=== PATIENT | female | born 1935 | race Caucasian/White ===

== ENCOUNTER 2016-03-05 07:27 | Observation (INO) ==
[2016-03-05] MEDS ORDERED: 0.9 % Sodium Chloride 1,000 ML IVC ONE (07:48)
[2016-03-05] MEDS ORDERED: Ondansetron 4 MG/2 ML VIAL IV ONE (07:49)
[2016-03-05] MEDS ORDERED: *HR* HYDROmorphone (PF) 1 MG/ML SYRINGE IV ONE (07:49)
--- NOTE | 2016-03-05 07:51 | Emergency Department Note ---
Disposition Clinical Impression: Bilateral pneumonia Qualifiers: Pneumonia type: due to unspecified organism Lung location: lower lobe of lung Qualified Code(s): J18.9 - Pneumonia, unspecified organism Condition: Good Referrals: Ashok Tadeo MD [Primary Care Provider] - Forms: ED Satisfaction Letter SOB HPI - General Chief Complaint: ED Upper Respiratory Infection Stated Complaint: difficulty breathing Source: patient Mode of arrival: EMS Limitations: no limitations Nursing Notes Reviewed: Yes Vital Signs Reviewed: Yes - History of Present Illness 80-year-old female presents to the emergency department for evaluation of congestion, cough, low back pain. Patient states that she has been ill since yesterday. She has a past history of COPD and requires continuous oxygen at home. This morning she had significant discomfort to her lower back that prompted her to come to the emergency department. Patient has been running a low-grade fever but is not know the actual amount. She has had a productive cough of yellow brown sputum. - Related Data Home Medications Medication Instructions Recorded Confirmed Albuterol Sulfate [Proair HFA] 1 puff IH DAILY 10/05/14 03/05/16 Alendronate Sodium 70 mg PO QWEEK 10/05/14 03/05/16 Atorvastatin [Lipitor] 80 mg PO HS 10/05/14 03/05/16 Budesonide/Formoterol 80/4.5 1 puff IH BIDR 10/05/14 03/05/16 [Symbicort] Calcium Carbonate/Vitamin D3 1 each PO DAILY 10/05/14 03/05/16 [Calcium 250+D Tablet] Clopidogrel [Plavix] 75 mg PO DAILY 10/05/14 03/05/16 Diltiazem CD (24hr) [Cardizem CD] 120 mg PO BID 10/05/14 03/05/16 Docosahexanoic Acid/Epa [Fish Oil 1 mg PO DAILY 10/05/14 03/05/16 Concentrate Softgel] Enalapril Maleate [Vasotec] 10 mg PO DAILY 10/05/14 03/05/16 Ezetimibe [Zetia] 10 mg PO DAILY 10/05/14 03/05/16 Formoterol Fumarate [Perforomist] 20 mcg IH DAILY 10/05/14 03/05/16 Furosemide [Lasix] 20 mg PO DAILY 10/05/14 03/05/16 GlipiZIDE [Glucotrol] 5 mg PO BIDWM 10/05/14 03/05/16 Isosorbide MONOnitrate (24 HR) 60 mg PO DAILY 10/05/14 03/05/16 [Imdur] Nitroglycerin 0.3 mg TD DAILY 10/05/14 03/05/16 Sotalol HCl [Betapace] 120 mg PO BID 10/05/14 03/05/16 Warfarin [Coumadin] 3 mg PO DAILY 12/31/14 03/05/16 Cholecalciferol (D-3) [Vitamin D] 1,000 unit PO DAILY 03/05/16 03/05/16 Cyanocobalamin/FA/Pyridoxine 1 each PO DAILY 03/05/16 03/05/16 [Folbic Tablet] Esomeprazole Magnesium [Nexium] 20 mg PO DAILY 03/05/16 03/05/16 L.acidoph,Paracasei, B.lactis 1 each PO DAILY 03/05/16 03/05/16 [Probiotic] Nitroglycerin [Nitrostat] 0.4 mg SL AD 03/05/16 03/05/16 Allergies Allergy/AdvReac Type Severity Reaction Status Date / Time bacitracin Allergy Anaphylaxis Verified 02/21/16 19:45 [From Neosporin ([id number])] cetirizine Allergy Anaphylaxis Verified 02/21/16 19:45 codeine Allergy Anaphylaxis Verified 02/21/16 19:45 diazepam [From Valium] Allergy Anaphylaxis Verified 02/21/16 19:45 miconazole Allergy Anaphylaxis Verified 02/21/16 19:45 [From Neosporin AF] Neomycin Allergy Anaphylaxis Verified 02/21/16 19:45 Penicillins Allergy Anaphylaxis Verified 02/21/16 19:45 polymyxin B Allergy Anaphylaxis Verified 02/21/16 19:45 promethazine [From Phenergan] Allergy Anaphylaxis Verified 02/21/16 19:45 Sulfa (Sulfonamide Allergy Anaphylaxis Verified 02/21/16 19:45 Antibiotics) Review of Systems: Constitutional: [Negative for fever and chills.] HENT: [Negative for congestion.] Eyes: [Negative for discharge.] Respiratory: See history of present illness Cardiovascular: [Negative for chest pain.] Gastrointestinal: [Negative for nausea, vomiting, abdominal pain and diarrhea.] Endocrine: [Negative for excessive thirst,urination] Genitourinary: [Negative for dysuria and frequency.] Musculoskeletal: See history of present illness Skin: [Negative for rash.] Neurological: [Negative for dizziness, localized weakness and headaches.] Psychiatric/Behavioral: [Negative for nervous/anxious.] All other systems reviewed and are negative. All systems ED: reviewed and negative except as stated. Past Medical History - Past Medical History Attestation: Yes The following information was validated with the patient. Medical history: Reports: atrial fibrillation, cancer, CHF, COPD, coronary artery disease, diabetes, GERD, hyperlipidemia, hypertension, pulmonary embolus , other Surgical history: Reports: breast surgery, cancer surgery, cholecystectomy Psychiatric history: Reports: no psych history [employer] history: Reports: bilateral tubal ligation - Social History Smoking Status: Former smoker Smokeless Tobacco Status: No Alcohol use: Reports: none Drug use: Reports: none Physical Exam Constitutional: Patient is [alert], elderly, [well nourished, well developed], uncomfortable with movement of her lower back and cooperative. . The patient appears, nontoxic, and [does not appear ill]. There is moderate pain. HENT: Head: Normocephalic and atraumatic. Right Ear: External ear normal. Left Ear: External ear normal. Nose: Nose normal. Mouth/Throat: Oropharynx is clear and mucous membranes show [good hydration.] Posterior pharyngeal drainage is noted Eyes: Conjunctivae and EOM are normal. Pupils are equal, round, and reactive to light. Right eye exhibits no discharge. Left eye exhibits no discharge. Neck: Trachea is midline, normal range of motion and phonation normal. Neck supple. Cardiovascular: Regular rhythm, S1 normal, S2 normal, normal heart sounds and intact distal pulses. Exam reveals no gallop and no friction rub. No murmur heard. Pulmonary/Chest: Effort [normal] No stridor. [No] tachypnea. [No] respiratory distress. There are decreased breath sounds. There are mild faint wheezes and diffuse rhonchi heard throughout. No Rales are heard Abdominal: Soft. Bowel sounds are normal. There exhibits no distension and no mass. There is no hepatosplenomegaly. There is [no] tenderness, [no] CVA tenderness. There is no rigidity, no rebound, no guarding. Musculoskeletal: Normal range of motion of uninvolved extremities. There exhibits [no] edema. [No tenderness palpable.] [ ] Neurological: Patient is alert. Patient displays no atrophy and no tremor. No cranial nerve deficit and exhibits normal muscle tone. Coordination normal. Skin: Skin is warm and dry. No rash noted. No erythema. Psychiatric: Patient has a normal mood,affect, behavior, judgment, and thought content. Course Course Narrative: Patient has significant underlying COPD with noted CO2 retention on blood gas. Chest x-ray shows evidence of a pneumonia that could be evolving versus atelectasis. With a productive cough with suggestive probably has bronchitis and this is most likely atelectasis but with her underlying COPD admission is indicated Vital Signs Temperature 98.8 F 03/05/16 07:31 Pulse Rate 87 03/05/16 07:31 Respiratory Rate 16 03/05/16 07:31 Blood Pressure 151/60 03/05/16 07:31 O2 Sat by Pulse Oximetry 97 03/05/16 07:31 Temperature 98.8 F 03/05/16 07:31 Pulse Rate 84 03/05/16 08:08 Respiratory Rate 18 03/05/16 08:08 Blood Pressure 123/51 03/05/16 08:08 O2 Sat by Pulse Oximetry 95 03/05/16 08:08 Oxygen Delivery Oxygen Delivery Nasal Cannula Shortness of Breath/Dyspnea - MDM Narrative Medical decision making narrative: She will be discussed with Dr. Tadeo for admission - Lab Data Lab results reviewed: Yes I reviewed the patient's lab results. Result diagrams: 03/05/16 08:20 03/05/16 08:20 Lab Results 03/05/16 03/05/16 03/05/16 Range/Units 08:20 08:20 08:20 WBC 12.3 H (4.3-11.1) K/mcL RBC 4.02 (3.82-4.97) M/mcL Hgb 10.9 L (11.5-15.4) g/dL Hct 34.3 L (35.3-44.9) % MCV 85.3 (83.0-100.0) fL MCH 27.1 L (28.0-33.3) pg MCHC 31.8 (31.6-35.5) g/dL RDW 13.7 (11.5-14.5) % Plt Count 217 (140-400) K/mcL MPV 10.3 (9.4-12.4) fL Immature Gran % 0.6 (0-4) % Seg Neutrophils % 78.2 % Lymphocytes % 13.2 % Monocytes % 7.6 % Eosinophils % 0.2 % Basophils % 0.2 % Neutrophils # 9.6 H (1.6-8.9) K/mcL Lymphocytes # 1.6 (0.6-4.6) K/mcL Monocytes # 0.9 (0.0-1.3) K/mcL Eosinophils # 0.0 (0.0-0.6) K/mcL Basophils # 0.0 (0.0-0.2) K/mcL ABG pH 7.37 (7.32-7.45) pH Units ABG pCO2 68 H (35-45) mmHg ABG pO2 76 L (85-104) mmHg ABG HCO3 39.2 H (21-27) mEQ/L ABG Total CO2 41.3 H (20-26) mEq/L ABG O2 Saturation 94 L (95-98) % ABG Base Excess 11.0 H (-2.0 to 3.0) mEq/L VBG Lactic Acid 0.4 L (0.5-2.2) mmol/L Liter Flow 3 L/MIN Blood Gas Modality NC Inspired O2 32 % Sodium 142 (136-145) mEq/L Potassium 4.0 (3.5-4.5) mEq/L Chloride 101 (98-109) mEq/L Carbon Dioxide 33 H (19-29) mEq/L BUN 13 (7-20) mg/dL Creatinine 0.58 (0.57-1.11) mg/dL Est GFR ( Amer) > 60 (> 60) Est GFR (Non-Af Amer) > 60 (> 60) BUN/Creatinine Ratio 22 (6-26) Glucose 121 H (70-99) mg/dL Calculated Osmolality 295 (280-300) Calcium 9.1 (8.6-10.8) mg/dL Total Bilirubin 0.6 (0.2-1.2) mg/dL Direct Bilirubin 0.2 (0.0-0.5) mg/dL Indirect Bilirubin 0.4 (0.0-1.2) mg/dL AST 20 (5-34) Units/L ALT 29 (0-55) Units/L Alkaline Phosphatase 68 (38-126) Units/L Serum Total Protein 6.2 (6.0-8.3) g/dL Albumin 3.1 L (3.5-5.0) g/dL Globulin 3.1 (2.4-3.5) g/dL Albumin/Globulin Ratio 1.0 L (1.1-2.2) - Radiology Data Radiology results reviewed: Yes I reviewed the patient's radiology results. I have contemporaneously read the radiology report from the radiologist which has the following findings: Chest x-ray IMPRESSION: Prominence of central pulmonary vasculature suggestive of congestion. This finding may be accentuated by low lung volumes. Bibasilar airspace disease, greater on the left, atelectasis or pneumonia. Asymmetric pulmonary edema could have this appearance as well.
[2016-03-05 08:33] LABS: ABG HCO3 39.2 mEQ/L (21-27); ABG PCO2 68 mmHg (35-45); ABG PH 7.37 pH Units (7.32-7.45); ABG PO2 76 mmHg (85-104)
[2016-03-05 08:34] LABS: ABG Oxygen Saturation 94 % (95-98); ABG TCO2 41.3 mEq/L (20-26); Blood Gas FiO2 32 %; Blood Gas Liter Flow 3 L/MIN
[2016-03-05 08:49] LABS: Alanine Aminotransferase 29 Units/L (0-55); Albumin 3.1 g/dL (3.5-5.0); Alkaline Phosphatase 68 Units/L (38-126); Aspartate Amino Transferase 20 Units/L (5-34); BUN/Creatinine Ratio 22 (6-26); Bilirubin,Direct 0.2 mg/dL (0.0-0.5); Bilirubin,Indirect 0.4 mg/dL (0.0-1.2); Bilirubin,Total 0.6 mg/dL (0.2-1.2); Blood Urea Nitrogen 13 mg/dL (7-20); Calcium 9.1 mg/dL (8.6-10.8); Carbon Dioxide 33 mEq/L (19-29); Chloride 101 mEq/L (98-109); Globulin 3.1 g/dL (2.4-3.5); Glucose 121 mg/dL (70-99); Osmolality,Calculated 295 (280-300); Sodium 142 mEq/L (136-145); Total Protein 6.2 g/dL (6.0-8.3); eGFR For African Americans > 60 (> 60); eGFR For Non-African Americans > 60 (> 60)
[2016-03-05 08:54] LABS: Basophils % 0.2 %; Eosinophils % 0.2 %; Hematocrit 34.3 % (35.3-44.9); Hemoglobin 10.9 g/dL (11.5-15.4); Immature Granulocytes % 0.6 % (0-4); Lymphocytes # 1.6 K/mcL (0.6-4.6); Lymphocytes % 13.2 %; Mean Corpuscular HGB Conc 31.8 g/dL (31.6-35.5); Mean Corpuscular Hemoglobin 27.1 pg (28.0-33.3); Mean Corpuscular Volume 85.3 fL (83.0-100.0); Mean Platelet Volume 10.3 fL (9.4-12.4); Monocytes # 0.9 K/mcL (0.0-1.3); Monocytes % 7.6 %; Neutrophils # 9.6 K/mcL (1.6-8.9); Platelet Count 217 K/mcL (140-400); Red Blood Count 4.02 M/mcL (3.82-4.97); Red Cell Distribution Width 13.7 % (11.5-14.5); Segmented Neutrophils % 78.2 %
[2016-03-05] MEDS ORDERED: Levofloxacin 500 MG/100 ML 500 MG/100 ML BAG IVPB ONE ×2 (09:05→09:07)
[2016-03-05] MEDS ORDERED: Albuterol 2.5 MG/3 ML NEBULIZER IH PRN ×2 (10:02→10:41)
[2016-03-05] MEDS ORDERED: Ipratropium/Albuterol Neb 3 ML IH SCH (10:02)
[2016-03-05] MEDS: Nitroglycerin 0.3 MG PATCH.TD24 TD SCH (13:35)
--- NOTE | 2016-03-05 16:16 | Internal Med History&Physical ---
Date of Encounter: 03/05/16 Time of Encounter: 16:08 Assessment and Plan (1) Acute exacerbation of chronic obstructive pulmonary disease (COPD) Current visit: Yes Status: Acute Patient admitted for acute exacerbation of chronic COPD. She has had dyspnea, oxygen requirements increased, sputum production. She will be on IV steroids, IV and antibiotics will be continued. She has had two ER visits with dyspnea and I suspect she will be here at least 2 midnights and having failed outpatient treatment she should be full admission. I called bed management and left a message. (2) Bronchitis Current visit: Yes Status: Acute Likely this is acute bronchitis in addition to exacerbation of COPD. She has sputum production. The chest x-ray is not impressive for pneumonia, though on the differential diagnosis and as per the radiology reading it is infiltrate versus atelectasis. In either case she will be on IV steroids, IV antibiotics, increased oxygen as needed. She is unstable on her feet and requires hospitalization. (3) Diabetes mellitus Current visit: Yes Status: Chronic Long-standing history of diabetes mellitus. We will continue to watch her blood sugars. With IV steroids she may need coverage. Diabetic diet. Her last glycohemoglobin was 12/19/15 and it was 6.0% Qualifiers: Diabetes mellitus type: type 2 Diabetes mellitus complication status: with unspecified complications Diabetes mellitus assisted insulin use: without assisted use Qualified Code(s): E11.8 - Type 2 diabetes mellitus with unspecified complications (4) Anemia Current visit: Yes Status: Acute She has had anemia intermittently. She has had a G.I. workup. Will follow. I doubt acute G.I. bleed. Qualifiers: Anemia type: unspecified type Qualified Code(s): D64.9 - Anemia, unspecified (5) Coronary artery disease Current visit: Yes Status: Chronic Known history of CAD and stent placements in the past. No angina or acute [place] suspected. Qualifiers: Coronary Disease-Associated Artery/Lesion type: unspecified vessel or lesion type [place] vs. transplanted heart: [place] heart Associated angina: without angina Qualified Code(s): I25.10 - Atherosclerotic heart disease of [place] coronary artery without angina pectoris (6) Acute low back pain Current visit: Yes Status: Acute Acute low back pain just inferior to the right sacroiliac joint. No history of trauma. She is improved after having a Dilaudid dose in the ER. She is now ambulatory with help. Will monitor. Qualifiers: Back pain laterality: right Sciatica presence: without sciatica Qualified Code(s): M54.5 - Low back pain (7) Pacemaker Current visit: Yes Status: Chronic Chronic pacemaker and a history of paroxysmal atrial fibrillation. Appears to be stable. (8) Anticoagulated on Coumadin Current visit: Yes Status: Chronic Long-term Coumadin use for paroxysmal atrial fibrillation. Pro time yesterday was 3.2. Will continue to monitor. (9) Paroxysmal atrial fibrillation Current visit: Yes Status: Chronic History of paroxysmal atrial fibrillation. Appears to be in sinus rhythm or paced rhythm currently. Long-term anticoagulation with Coumadin. No angina or CHF. (10) DVT prophylaxis Current visit: Yes Status: Acute She is currently on Coumadin and therefore will not need DVT prophylaxis otherwise. Internal Medicine - H&P: HPI Chief complaint: I am coughing, got short of breath and have back pain Admitted From: Emergency Dept Plans for Post Hospital Care: Home History of present illness: Ms. De La Cruz is a 80 year old female with known history of oxygen dependent COPD, previous tobacco smoker, history of CAD and multiple catheterizations and stent placements is admitted from the emergency room with a history of cough, Ingestion, sputum production, tightness in her chest and low back pain. She was in the emergency room on 02/21/16 with a history of nausea and vomiting and tightness in her chest. The G.I. symptoms resolved in a day. Her dyspnea seemed to improve. Then she said she "got a cold from her ". She had upper sparklers symptoms starting 3 days ago, the to help tightening in her chest, yesterday evening she started having worsening tightness her chest, she started coughing with sputum which was brown to yellow and thick in consistency. She states she was having lots of nasal congestion as well. She was worsted the night and developed back pain with walking and that became unbearable this morning when she tried to get up and had to call the life squad. She was given a dose of Solu-Medrol by the squad, she was given Dilaudid in the ER she told her back is doing much better. She is able to walk now. She denies any radiation down either lower extremity or localizing weakness. No history of falls. Arthritic or back pain is not a common symptom for her. She denies any cardiac chest pain. She thought she may have had fever at home, she said it was 100.8 by the life squad. She has had no chills. She has been eating and drinking well. At home her oxygen is generally at 2 L , she had to increase it to 3 L per nasal cannula which became dyspneic. No recent travel or unusual exposures. Her has been ill with a cold. Past Med Surg Social Fam HX - Past Medical History Medical history: atrial fibrillation, cancer (Breast cancer with left mastectomy ), CHF, COPD (Previous smoker quit 20 years ago/1996), coronary artery disease ( Multiple stent placement and 14 heart catheterization), diabetes, GERD, hyperlipidemia, hypertension, malignancy (Left breast cancer and mastectomy), pulmonary embolus Psychiatric history: no psych history - Past Surgical History Surgical History: breast surgery (Left breast mastectomy for cancer), cancer surgery, cholecystectomy, hysterectomy, pacemaker/AICD, pacemaker - Social History Smoking Status: Former smoker Packs per day: 2 packs per day, quit 20 years ago in 1996 Smokeless Tobacco Status: No Alcohol use: none Drug use: none Occupational status: retired Current living situation: Home, With Family (Her is in the home) Activity Level: Independent ambulation Recent Out of Country Travel Within the Last 8 Weeks: No Exposure or Possible Exposure to Illness During Travel: Yes (Her has been ill with a " a cold") - Family History Mother Living Status: Age at : 85 Hx Family Cardiac Disorders: Yes (CHF) Hx Family Endocrine Disorder: Yes (Diabetes) Father Living Status: Age at : 87 Hx Family Respiratory Disorders: Yes (COPD) Hx Family Cancer: Yes (leukemia) Sister Living Status: Still Living Hx Family Cancer: Yes (Breast cancer) Internal Medicine - H&P: Meds Albuterol Sulfate [Proair HFA] 1 puff IH DAILY PRN 10/05/14 [History] Alendronate Sodium 70 mg PO QWEEK 10/05/14 [History] Atorvastatin [Lipitor] 80 mg PO HS 10/05/14 [History] Calcium Carbonate/Vitamin D3 [Calcium 250+D Tablet] 1 each PO BID 10/05/14 [ History] Clopidogrel [Plavix] 75 mg PO DAILY 10/05/14 [History] Docosahexanoic Acid/Epa [Fish Oil Concentrate Softgel] 1 mg PO DAILY 10/05/14 [ History] Enalapril Maleate [Vasotec] 10 mg PO BID 10/05/14 [History] Ezetimibe [Zetia] 10 mg PO HS 10/05/14 [History] Formoterol Fumarate [Perforomist] 20 mcg IH BID 10/05/14 [History] Furosemide [Lasix] 20 mg PO DAILY 10/05/14 [History] GlipiZIDE [Glucotrol] 5 mg PO BIDWM 10/05/14 [History] Nitroglycerin 0.3 mg TD DAILY 10/05/14 [History] Sotalol HCl [Betapace] 120 mg PO BID 10/05/14 [History] Warfarin [Coumadin] 5 mg PO QMWF 12/31/14 [History] Budesonide 1 mg IH BID 03/05/16 [History] Cholecalciferol (D-3) [Vitamin D] 1,000 unit PO DAILY 03/05/16 [History] Cyanocobalamin/FA/Pyridoxine [Folbic Tablet] 1 each PO DAILY 03/05/16 [History] Diltiazem CD (24hr) [Cardizem CD] 120 mg PO BID 03/05/16 [History] Esomeprazole Magnesium [Nexium] 20 mg PO DAILY 03/05/16 [History] Isosorbide MONOnitrate (24 HR) [Imdur] 60 mg PO BID 03/05/16 [History] L.acidoph,Paracasei, B.lactis [Probiotic] 1 each PO 1200 03/05/16 [History] Warfarin [Coumadin] 7.5 mg PO QTUTHSA 03/05/16 [History] Allergies bacitracin [From Neosporin ([id number])] Allergy (Verified 02/21/16 19:45) Anaphylaxis cetirizine Allergy (Verified 02/21/16 19:45) Anaphylaxis ciprofloxacin Allergy (Verified 03/05/16 10:46) Difficulty Breathing codeine Allergy (Verified 02/21/16 19:45) Anaphylaxis diazepam [From Valium] Allergy (Verified 02/21/16 19:45) Anaphylaxis miconazole [From Neosporin AF] Allergy (Verified 02/21/16 19:45) Anaphylaxis Neomycin Allergy (Verified 02/21/16 19:45) Anaphylaxis Penicillins Allergy (Verified 02/21/16 19:45) Anaphylaxis polymyxin B Allergy (Verified 02/21/16 19:45) Anaphylaxis promethazine [From Phenergan] Allergy (Verified 02/21/16 19:45) Anaphylaxis Sulfa (Sulfonamide Antibiotics) Allergy (Verified 02/21/16 19:45) Anaphylaxis - Constitutional Constitutional: no anorexia, no falls, no night sweats - EENT Eyes: no change in vision Ears: no ear discharge, no ear pain Nose, mouth and throat: nasal congestion, no dental pain, no neck pain, no sore throat - Breasts Breasts: no pain - Cardiovascular Cardiovascular ROS IM: dyspnea, no chest pain, no edema, no irregular heart rhythm, no lightheadedness, no palpitations, no syncope - Respiratory Respiratory: cough (With brown to yellow sputum production), dyspnea on exertion , no hemoptysis, no pain on inspiration - Gastrointestinal Gastrointestinal: no abdominal pain, no belching, no change in bowel habits, no coffee ground emesis, no hematemesis, no melena, no nausea - Genitourinary Genitourinary: urinary incontinence (Occasional urinary incontinence if she is too weak to get to the bathroom in time), no breast mass, no urinary frequency Menstruation: post menopausal - Musculoskeletal Musculoskeletal ROS IM: back pain (As an HPI without radiation), no arthralgias , no muscle weakness, no numbness - Integumentary Integumentary IM: no erythema, no new lesions, no sores, no jaundice - Psychiatric Psychiatric: no behavioral changes, no difficulty concentrating - Hematologic/Lymphatic Hematologic/Lymphatic: no easy bruising - Constitutional Vitals: Temp Pulse Resp BP Pulse Ox 98.1 F 85 18 133/64 94 L 03/05/16 10:39 03/05/16 10:39 03/05/16 10:39 03/05/16 10:39 03/05/16 10:41 General appearance: Present: A&O X 3, no acute distress, obese, answers questions appropriately - ENT Additional comments: Right ear canal is included with cerumen. Left is normal. Oral examination shows upper plate of dentures, lower teeth multiple data work. No acute lesions. Mucous membranes are moist - Neck Neck exam general surgery: Absent: lymphadenopathy, tenderness, thyromegaly Additional comments: No carotid bruits heard - Respiratory Additional comments: Markedly diminished breath sounds throughout. No rales or rhonchi or wheeze. No respiratory distress currently. She is wearing oxygen per nasal cannula at 3 L. Head of bed is elevated and 45 angle - Cardiovascular Cardiovascular exam: Present: RRR, +S1, +S2. Absent: gallop, systolic murmur - GI/Abdominal GI/Abdominal exam: Present: soft. Absent: firm, mass, rebound, splenomegaly, tenderness Additional comments: Moderately obese limiting the examination - Extremities Exam Extremities exam: Present: normal capillary refill, warm. Absent: calf tenderness, pedal edema, tenderness Additional comments: Excellent dorsalis pedis pulses - Back Exam Additional comments: Tenderness localizing just inferior to the right sacroiliac joint. No midline spine tenderness on palpation - Neurological Exam Neurological exam: Present: CN II-XII intact, oriented X3, no focal deficits, strengths equal and symetr throughout - Skin Skin exam: Absent: mottled, rash Internal Med - H&P Results - Labs CBC & Chem 7: 03/05/16 08:20 03/05/16 08:20 Labs: White blood cell count mildly elevated. Mildly diminished hemoglobin. Minimally elevated glucose, but she is known diabetic. - EKG Data EKG comments: 03/05/16 16:28 EKG is not available to me for review - Diagnostic Studies Chest x-ray Additional comments: Was read by radiology as possible infiltrate in lower lobe versus atelectasis. I do not see an appreciable change from 2 weeks ago.
[2016-03-05] MEDS: Ipratropium/Albuterol Neb 3 ML IH SCH ×2 (17:37→20:45)
[2016-03-05] MEDS: *HR* GlipiZIDE 5 MG TABLET PO SCH (17:38)
[2016-03-05] MEDS ORDERED: *HR* Warfarin 7.5 MG TABLET PO SCH (18:00)
[2016-03-05] MEDS: Diltiazem CD (24hr) 120 MG CAPSULE PO SCH (20:42)
[2016-03-05] MEDS: Isosorbide MONOnitrate (24 HR) 60 MG TAB.ER.24H PO SCH (20:43)
[2016-03-05] MEDS: Budesonide Neb 0.5 MG/2 ML IH SCH (20:45)
[2016-03-05] MEDS: (Calcium Carbonate/Vitamin D3 [Calcium 250+D Tablet] PO SCH (20:48)
[2016-03-05] MEDS: (Formoterol Fumarate [Perforomist] 20 MCG) IH SCH (20:48)
[2016-03-06] MEDS: Ipratropium/Albuterol Neb 3 ML IH SCH ×4 (04:07→20:48)
[2016-03-06 05:37] LABS: Basophils % 0.1 %; Hematocrit 35.4 % (35.3-44.9); Hemoglobin 11.3 g/dL (11.5-15.4); Immature Granulocytes % 0.7 % (0-4); Lymphocytes # 1.2 K/mcL (0.6-4.6); Lymphocytes % 10.7 %; Mean Corpuscular HGB Conc 31.9 g/dL (31.6-35.5); Mean Corpuscular Hemoglobin 26.9 pg (28.0-33.3); Mean Corpuscular Volume 84.3 fL (83.0-100.0); Mean Platelet Volume 10.4 fL (9.4-12.4); Monocytes # 0.5 K/mcL (0.0-1.3); Monocytes % 4.5 %; Platelet Count 256 K/mcL (140-400); Red Cell Distribution Width 13.5 % (11.5-14.5)
[2016-03-06 05:38] LABS: INR 1.7; Prothrombin Time 18.6 Seconds (9.4-12.1)
[2016-03-06 05:41] LABS: Neutrophils # 9.7 K/mcL (1.6-8.9)
[2016-03-06 05:47] LABS: BUN/Creatinine Ratio 23 (6-26); Blood Urea Nitrogen 16 mg/dL (7-20); Calcium 9.3 mg/dL (8.6-10.8); Carbon Dioxide 32 mEq/L (19-29); Chloride 101 mEq/L (98-109); Glucose 211 mg/dL (70-99); Osmolality,Calculated 301 (280-300); Potassium 4.4 mEq/L (3.5-4.5); Sodium 142 mEq/L (136-145); eGFR For African Americans > 60 (> 60); eGFR For Non-African Americans > 60 (> 60)
[2016-03-06] MEDS ORDERED: Nitroglycerin 0.3 MG PATCH.TD24 TD SCH ×3 (07:30)
[2016-03-06] MEDS: Diltiazem CD (24hr) 120 MG CAPSULE PO SCH ×2 (08:44→20:37)
[2016-03-06] MEDS: Cholecalciferol (D-3) 1,000 UNIT TABLET PO SCH (08:45)
[2016-03-06] MEDS: *HR* GlipiZIDE 5 MG TABLET PO SCH ×2 (08:46→16:48)
[2016-03-06] MEDS: Lisinopril 20 MG TABLET PO SCH (08:46)
[2016-03-06] MEDS: Furosemide 20 MG TABLET PO SCH (08:46)
[2016-03-06] MEDS: Isosorbide MONOnitrate (24 HR) 60 MG TAB.ER.24H PO SCH ×2 (08:46→20:37)
[2016-03-06] MEDS: (Calcium Carbonate/Vitamin D3 [Calcium 250+D Tablet] PO SCH ×2 (08:47→20:38)
[2016-03-06] MEDS: Nitroglycerin 0.3 MG PATCH.TD24 TD SCH (08:47)
[2016-03-06] MEDS: [UNRECOGNIZED DRUG - OTHER] PO SCH (08:48)
[2016-03-06] MEDS: PYRIDOXINE PO SCH (08:48)
[2016-03-06] MEDS: CYANOCOBALAMIN PO SCH (08:48)
[2016-03-06] MEDS: Budesonide Neb 0.5 MG/2 ML IH SCH ×2 (08:51→20:48)
[2016-03-06] MEDS: Azithromycin 500 MG in D5% in Water 250 ML IVPB SCH (08:53)
--- NOTE | 2016-03-06 09:44 | Internal Med Progress Note ---
Date of Encounter: 03/06/16 Time of Encounter: 09:39 - Assessment and plan (1) Acute exacerbation of chronic obstructive pulmonary disease (COPD) Current Visit: Yes Status: Acute Assessment and plan: Her exacerbation of COPD and presumed bronchitis versus pneumonia is improving clinically as well as symptomatically. Will continue with current treatments with IV Solu-Medrol, nebulizer treatments, rest etc. Will try to increase her activity level as tolerated. Saturations have been good. (2) Bronchitis Current Visit: Yes Status: Acute Assessment and plan: She is been treated for exacerbation of COPD and bronchitis versus pneumonia. Clinically I think it is more bronchitis the pneumonia but atelectasis versus infiltrate was seen on chest x-ray. White blood cell count is normalizing. No fever. Continue with the antibiotics and nebulizer treatments. Increase activity as tolerated. (3) Diabetes mellitus Current Visit: Yes Status: Chronic Assessment and plan: Continuing to follow her sugars. Anticipate elevated sugars due to steroids. No extra coverage needed yet. Glycohemoglobin is pending. Qualifiers: Diabetes mellitus type: type 2 Diabetes mellitus complication status: with unspecified complications Diabetes mellitus shelter insulin use: without property management specialist use Qualified Code(s): E11.8 - Type 2 diabetes mellitus with unspecified complications (4) Anemia Current Visit: Yes Status: Acute Assessment and plan: Hemoglobin has improved today. No obvious bleeding other than mild amount from epistaxis when sneezing. Will follow. No melena or hematochezia. Qualifiers: Anemia type: unspecified type Qualified Code(s): D64.9 - Anemia, unspecified (5) Coronary artery disease Current Visit: Yes Status: Chronic Assessment and plan: No angina or CHF. Qualifiers: Coronary Disease-Associated Artery/Lesion type: unspecified vessel or lesion type [place] vs. transplanted heart: [place] heart Associated angina: without angina Qualified Code(s): I25.10 - Atherosclerotic heart disease of [place] coronary artery without angina pectoris (6) Acute low back pain Current Visit: Yes Status: Acute Assessment and plan: Her low back pain is basically resolved. She had a small "catch" when she got up this morning but was better when walking. No radicular symptoms. Qualifiers: Back pain laterality: right Sciatica presence: without sciatica Qualified Code(s): M54.5 - Low back pain (7) Pacemaker Current Visit: Yes Status: Chronic (8) Anticoagulated on Coumadin Current Visit: Yes Status: Chronic Assessment and plan: Her INR is down 1.7. It was 3.3 two days ago. She had held one dose per her physician recommendation. With IV antibiotics I anticipate it will go back up. Will continue the current dosing and recheck INR tomorrow. (9) Paroxysmal atrial fibrillation Current Visit: Yes Status: Chronic Assessment and plan: Appears to be in sinus rhythm or paced rhythm. (10) DVT prophylaxis Current Visit: Yes Status: Acute Assessment and plan: She is on Coumadin. She will be ambulating - Subjective Interval history: Patient said she did not sleep well last night, could not sleep until after midnight but slept well for a few hours. She felt well enough to have a shower this morning. She still has a cough and sputum is now clear to white and foamy. She had some blood tinged nasal drainage, then she coughed up some blood tinged sputum likely from postnasal drainage. She denies any jorge hemoptysis. She denies any cardiac type chest pain. She continues to cough but it has improved. Her dyspnea has improved. Her bowels have not moved for the past 2 or 3 days. No urinary symptoms. No pain in lower extremities. - Constitutional Vitals: Temp Pulse Resp BP Pulse Ox 97.1 F L 78 16 128/70 95 03/06/16 07:51 03/06/16 07:51 03/06/16 07:51 03/06/16 07:51 03/06/16 07:51 General appearance: Present: A&O X 3, no acute distress, obese, answers questions appropriately - Respiratory Additional comments: Very diminished breath sounds in all fernández, but no wheezing, respiratory distress or crackles noted - Cardiovascular Cardiovascular exam: Present: RRR, +S1, +S2. Absent: systolic murmur - GI/Abdominal Additional comments: Obese abdomen. No obvious organomegaly. No guarding or rebound. She was mildly tender on palpation and extreme left lower quadrant/ iliac crest region. - Extremities Exam Extremities exam: Absent: pedal edema, tenderness Internal Medicine: Result - Labs CBC & Chem 7: 03/06/16 05:25 03/06/16 05:25 Labs: Short CBC 03/06/16 Range/Units 05:25 WBC 11.5 H (4.3-11.1) K/mcL Hgb 11.3 L (11.5-15.4) g/dL Hct 35.4 (35.3-44.9) % Plt Count 256 (140-400) K/mcL Neutrophils # 9.7 H (1.6-8.9) K/mcL BMP 03/06/16 05:25 Sodium 142 Potassium 4.4 Chloride 101 Carbon Dioxide 32 H BUN 16 Creatinine 0.69 Glucose 211 H Calcium 9.3 White blood cell count has improved, her hemoglobin has improved. Her protime is now 1.7. - ABG Interpretation ABG results: ABG ABG pH 7.37 pH Units (7.32-7.45) 03/05/16 08:20 ABG pCO2 68 mmHg (35-45) H 03/05/16 08:20 ABG pO2 76 mmHg (85-104) L 03/05/16 08:20 ABG O2 Saturation 94 % (95-98) L 03/05/16 08:20 PT/INR, D-dimer PT 18.6 Seconds (9.4-12.1) H 03/06/16 05:25 Consult Discharge Plan - Plan Referrals: Ashok Tadeo MD [Primary Care Provider] -
[2016-03-06 10:00] LABS: Hemoglobin A1C 6.1 %
[2016-03-06] MEDS: CefTRIAXone 1,000 MG in D5% in Water (Mini-Bag+) 100 ML IVPB SCH (10:09)
[2016-03-06] MEDS: (Formoterol Fumarate [Perforomist] 20 MCG) IH SCH ×2 (10:10→22:16)
[2016-03-06] MEDS ORDERED: Lactobacillus 1 EACH CAP.SPRINK PO SCH (12:00)
[2016-03-06] MEDS ORDERED: D5% in Water 1,000 ML IV PRN (12:38)
[2016-03-06] MEDS ORDERED: *HR* Dextrose 50 % in Water (Syg) 50 ML SYRINGE IVP PRN (12:38)
[2016-03-06] MEDS ORDERED: Dextrose Gel 15 GM PO PRN ×2 (12:38)
[2016-03-06] MEDS: Insulin LISPRO 300 UNITS/3 ML VIAL SQ SCH ×4 (12:47→20:48)
[2016-03-06] MEDS ORDERED: *HR* Warfarin 5 MG TABLET PO SCH (18:00)
[2016-03-07] MEDS: Ipratropium/Albuterol Neb 3 ML IH SCH (04:17)
[2016-03-07 05:38] LABS: INR 2.1; Prothrombin Time 23.2 Seconds (9.4-12.1)
--- NOTE | 2016-03-07 07:14 | Internal Med Progress Note ---
Date of Encounter: 03/07/16 Time of Encounter: 07:11 - Assessment and plan (1) Acute exacerbation of chronic obstructive pulmonary disease (COPD) Status: Acute (2) Bronchitis Status: Acute (3) Diabetes mellitus Status: Chronic Qualifiers: Diabetes mellitus type: type 2 Diabetes mellitus complication status: with unspecified complications Diabetes mellitus long-term insulin use: without rodent exterminator use Qualified Code(s): E11.8 - Type 2 diabetes mellitus with unspecified complications (4) Anemia Status: Acute Qualifiers: Anemia type: unspecified type Qualified Code(s): D64.9 - Anemia, unspecified (5) Coronary artery disease Status: Chronic Qualifiers: Coronary Disease-Associated Artery/Lesion type: unspecified vessel or lesion type [place] vs. transplanted heart: [place] heart Associated angina: without angina Qualified Code(s): I25.10 - Atherosclerotic heart disease of [place] coronary artery without angina pectoris (6) Acute low back pain Status: Acute Qualifiers: Back pain laterality: right Sciatica presence: without sciatica Qualified Code(s): M54.5 - Low back pain (7) Pacemaker Status: Chronic (8) Anticoagulated on Coumadin Status: Chronic (9) Paroxysmal atrial fibrillation Status: Chronic (10) DVT prophylaxis Status: Deleted - Subjective Interval history: Patient said she did not sleep well last night, could not sleep until after midnight but slept well for a few hours. She felt well enough to have a shower this morning. She still has a cough and sputum is now clear to white and foamy. She had some blood tinged nasal drainage, then she coughed up some blood tinged sputum likely from postnasal drainage. She denies any jorge hemoptysis. She denies any cardiac type chest pain. She continues to cough but it has improved. Her dyspnea has improved. Her bowels have not moved for the past 2 or 3 days. No urinary symptoms. No pain in lower extremities. - Constitutional Vitals: Temp Pulse Resp BP Pulse Ox 97.6 F 73 20 129/75 94 L 03/07/16 04:40 03/07/16 04:40 03/07/16 04:40 03/07/16 04:40 03/07/16 04:40 General appearance: Present: A&O X 3, no acute distress, obese, answers questions appropriately Internal Medicine: Result - Labs CBC & Chem 7: 03/06/16 05:25 03/06/16 05:25 - ABG Interpretation ABG results: ABG ABG pH 7.37 pH Units (7.32-7.45) 03/05/16 08:20 ABG pCO2 68 mmHg (35-45) H 03/05/16 08:20 ABG pO2 76 mmHg (85-104) L 03/05/16 08:20 ABG O2 Saturation 94 % (95-98) L 03/05/16 08:20 PT/INR, D-dimer PT 23.2 Seconds (9.4-12.1) H 03/07/16 05:10 - Impressions Impressions Chest X-Ray 03/06/16 10:05 IMPRESSION: Cardiomegaly with interstitial edema or infiltrate. Recommend follow-up imaging to confirm resolution D/ / Leonard Rivers MD / Leonard Rivers MD Interpreting Provider: Leonard Rivers MD Consult Discharge Plan - Plan Instructions: Warfarin (By mouth), Vitamin K in Foods (DC), Safe Use of Anticoagulants (DC) Referrals: Ashko Tadeo MD [Primary Care Provider] - 03/11/16 2:00 pm Prescriptions: Azithromycin 250 mg PO DAILY #2 tablet PredniSONE [Prednisone] 10 mg PO DAILY #63 tab
--- NOTE | 2016-03-07 07:35 | Discharge Summary ---
Date of Encounter: 03/07/16 Time of Encounter: 07:25 - Discharge Diagnosis (1) Acute exacerbation of chronic obstructive pulmonary disease (COPD) Priority: Primary Status: Acute Comments: Patient was admitted via the emergency room after having had two ER visits, including day of admission when she had extreme shortness of breath, increased oxygen requirements and back pain. Her chest x-ray was equivocal whether atelectasis or infiltrate in a lower lobe. She had had sputum production suggestive of bronchitis and treated as below. For her exacerbation of COPD she was placed on intravenous Solu-Medrol, increased oxygen per nasal cannula and rest. From that point of view she improved dramatically over the subsequent 2 or 3 days. She was able to be ambulated in the hallway with her chronic oxygen requirements. This morning she felt like she was able to go home. She was placed on a taper of prednisone, continued oxygen, increasing her nebulizer to every 4 to 6 hours rather than every 12 hours. I will see her in the office next week. (2) Bronchitis Priority: Secondary Status: Acute Comments: On admission patient had yellow and brown sputum production as well as dyspnea. Her chest x-ray was read as either infiltrate or atelectasis. This appeared to be more of a bronchitis picture than pneumonia. She was treated for her exacerbation of COPD with steroids. We added Zithromax and Rocephin to cover possible bacterial infection. She improved dramatically over the subsequent 24 to 48 hours. Her sputum lightened up. She had no fever. She was discharged today with follow-up next week. (3) Diabetes mellitus Priority: Secondary Status: Chronic Comments: She had mild elevation of her glucose due to the steroids and had coverage with sliding scale. She was discharged on her usual dose of medication. She will follow sugars at home. Qualifiers: Diabetes mellitus type: type 2 Diabetes mellitus complication status: with unspecified complications Diabetes mellitus superintendent terminal insulin use: without retirement use Qualified Code(s): E11.8 - Type 2 diabetes mellitus with unspecified complications (4) Anemia Priority: Secondary Status: Acute Comments: She had mild anemia on admission, it improved by discharge. No obvious signs of hemorrhage, G.I. symptoms etc. She has had G.I. workup previously. No intervention for now. Qualifiers: Anemia type: unspecified type Qualified Code(s): D64.9 - Anemia, unspecified (5) Coronary artery disease Priority: Secondary Status: Chronic Comments: She has a long-standing history of coronary artery disease and 14 heart catheterizations and multiple stent placements. She had no angina, no CHF, and no intervention from cardiac point of view needed. Qualifiers: Coronary Disease-Associated Artery/Lesion type: unspecified vessel or lesion type [place] vs. transplanted heart: [place] heart Associated angina: without angina Qualified Code(s): I25.10 - Atherosclerotic heart disease of [place] coronary artery without angina pectoris (6) Acute low back pain Priority: Secondary Status: Acute Comments: On admission she was noted to have severe back pain. She could barely walk that morning. She was given a dose of Dilaudid in the emergency room and she had no further problems. She is able to ambulate prior to discharge without significant pain. She felt like she was back to her baseline. Qualifiers: Back pain laterality: right Sciatica presence: without sciatica Qualified Code(s): M54.5 - Low back pain (7) Pacemaker Priority: Secondary Status: Chronic (8) Anticoagulated on Coumadin Priority: Secondary Status: Chronic Comments: We continued her anticoagulation in the hospital. We maintain the current dose as adjusted the day prior to admission. She will have a pro-time done on Friday and I recommended having one done a few days later because of the antibiotic use. (9) Paroxysmal atrial fibrillation Priority: Secondary Status: Chronic Comments: She appeared to be in sinus rhythm or paced rhythm the entire hospitalization. No tachycardia or CHF noted. - Discharge Medications Prescriptions: Azithromycin 250 mg PO DAILY #2 tablet PredniSONE [Prednisone] 10 mg PO DAILY #63 tab Home Medications: Albuterol Sulfate [Albuterol Inhaler] 1 puff IH DAILY PRN 10/05/14 [History] Alendronate Sodium 70 mg PO QWEEK 10/05/14 [History] Atorvastatin [Lipitor] 80 mg PO HS 10/05/14 [History] Calcium Carbonate/Vitamin D3 [Calcium 250+D Tablet] 1 each PO BID 10/05/14 [ History] Clopidogrel [Plavix] 75 mg PO DAILY 10/05/14 [History] Docosahexanoic Acid/Epa [Fish Oil Concentrate Softgel] 1 mg PO DAILY 10/05/14 [ History] Ezetimibe [Zetia] 10 mg PO HS 10/05/14 [History] Formoterol Fumarate [Perforomist] 20 mcg IH BID 10/05/14 [History] Furosemide [Lasix] 20 mg PO DAILY 10/05/14 [History] GlipiZIDE [Glucotrol] 5 mg PO BIDWM 10/05/14 [History] Nitroglycerin 0.3 mg TD DAILY 10/05/14 [History] Sotalol HCl [Betapace] 120 mg PO BID 10/05/14 [History] Warfarin [Coumadin] 5 mg PO QMWF 12/31/14 [History] Budesonide 1 mg IH BID 03/05/16 [History] Cholecalciferol (D-3) [Vitamin D] 1,000 unit PO DAILY 03/05/16 [History] Cyanocobalamin/FA/Pyridoxine [Folbic Tablet] 1 each PO DAILY 03/05/16 [History] Diltiazem CD (24hr) [Cardizem CD] 120 mg PO BID 03/05/16 [History] Esomeprazole Magnesium [Nexium] 20 mg PO DAILY 03/05/16 [History] Isosorbide MONOnitrate (24 HR) [Imdur] 60 mg PO BID 03/05/16 [History] L.acidoph,Paracasei, B.lactis [Probiotic] 1 each PO 1200 03/05/16 [History] Warfarin [Coumadin] 7.5 mg PO QTUTHSA 03/05/16 [History] Azithromycin 250 mg PO DAILY #2 tablet 03/07/16 [Rx] Lisinopril [Zestril] 20 mg PO DAILY tablet 03/07/16 [Rx] PredniSONE [Prednisone] 10 mg PO DAILY #63 tab 03/07/16 [Rx] Allergies/Adverse Reactions: Allergies bacitracin [From Neosporin ([id number])] Allergy (Verified 03/05/16 19:09) Blister cetirizine Allergy (Verified 03/05/16 19:09) Confusion ciprofloxacin Allergy (Verified 03/05/16 10:46) Difficulty Breathing codeine Allergy (Verified 03/05/16 19:09) Drowsy diazepam [From Valium] Allergy (Verified 03/05/16 19:09) See Comments pt states it caused her to be in a trance miconazole [From Neosporin AF] Allergy (Verified 03/05/16 19:12) Blister Neomycin Allergy (Verified 03/05/16 19:12) Blister Penicillins Allergy (Verified 03/05/16 17:02) See Comments pt states she feels off balance when walking polymyxin B Allergy (Verified 03/05/16 19:12) Blister promethazine [From Phenergan] Allergy (Verified 03/05/16 19:12) See Comments pt not sure, she states she received it while unconsious and her nurse told her to never take phenergan Sulfa (Sulfonamide Antibiotics) Allergy (Verified 03/05/16 19:12) Confusion Procedures/tests Complete & Pending: Laboratory Results WBC 11.5 K/mcL (4.3-11.1) H 03/06/16 05:25 RBC 4.20 M/mcL (3.82-4.97) 03/06/16 05:25 Hgb 11.3 g/dL (11.5-15.4) L 03/06/16 05:25 Hct 35.4 % (35.3-44.9) 03/06/16 05:25 MCV 84.3 fL (83.0-100.0) 03/06/16 05:25 MCH 26.9 pg (28.0-33.3) L 03/06/16 05:25 MCHC 31.9 g/dL (31.6-35.5) 03/06/16 05:25 RDW 13.5 % (11.5-14.5) 03/06/16 05:25 Plt Count 256 K/mcL (140-400) 03/06/16 05:25 MPV 10.4 fL (9.4-12.4) 03/06/16 05:25 Immature Gran % 0.7 % (0-4) 03/06/16 05:25 Seg Neutrophils % 84.0 % 03/06/16 05:25 Lymphocytes % 10.7 % 03/06/16 05:25 Monocytes % 4.5 % 03/06/16 05:25 Eosinophils % 0.0 % 03/06/16 05:25 Basophils % 0.1 % 03/06/16 05:25 Neutrophils # 9.7 K/mcL (1.6-8.9) H 03/06/16 05:25 Lymphocytes # 1.2 K/mcL (0.6-4.6) 03/06/16 05:25 Monocytes # 0.5 K/mcL (0.0-1.3) 03/06/16 05:25 Eosinophils # 0.0 K/mcL (0.0-0.6) 03/06/16 05:25 Basophils # 0.0 K/mcL (0.0-0.2) 03/06/16 05:25 PT 23.2 Seconds (9.4-12.1) H 03/07/16 05:10 INR 2.1 03/07/16 05:10 ABG pH 7.37 pH Units (7.32-7.45) 03/05/16 08:20 ABG pCO2 68 mmHg (35-45) H 03/05/16 08:20 ABG pO2 76 mmHg (85-104) L 03/05/16 08:20 ABG HCO3 39.2 mEQ/L (21-27) H 03/05/16 08:20 ABG Total CO2 41.3 mEq/L (20-26) H 03/05/16 08:20 ABG O2 Saturation 94 % (95-98) L 03/05/16 08:20 ABG Base Excess 11.0 mEq/L (-2.0 to 3.0) H 03/05/16 08:20 VBG Lactic Acid 0.4 mmol/L (0.5-2.2) L 03/05/16 08:20 Liter Flow 3 L/MIN 03/05/16 08:20 Blood Gas Modality NC 03/05/16 08:20 Inspired O2 32 % 03/05/16 08:20 Sodium 142 mEq/L (136-145) 03/06/16 05:25 Potassium 4.4 mEq/L (3.5-4.5) 03/06/16 05:25 Chloride 101 mEq/L (98-109) 03/06/16 05:25 Carbon Dioxide 32 mEq/L (19-29) H 03/06/16 05:25 BUN 16 mg/dL (7-20) 03/06/16 05:25 Creatinine 0.69 mg/dL (0.57-1.11) 03/06/16 05:25 Est GFR ( Amer) > 60 (> 60) 03/06/16 05:25 Est GFR (Non-Af Amer) > 60 (> 60) 03/06/16 05:25 BUN/Creatinine Ratio 23 (6-26) 03/06/16 05:25 Glucose 211 mg/dL (70-99) H 03/06/16 05:25 POC Glucose 177 (58-89) H 03/07/16 07:40 Est Mean Plasma Glucose 128 mg/dl 03/06/16 05:25 Hemoglobin A1c 6.1 % (-5.6) H 03/06/16 05:25 Calculated Osmolality 301 (280-300) H 03/06/16 05:25 Calcium 9.3 mg/dL (8.6-10.8) 03/06/16 05:25 Total Bilirubin 0.6 mg/dL (0.2-1.2) 03/05/16 08:20 Direct Bilirubin 0.2 mg/dL (0.0-0.5) 03/05/16 08:20 Indirect Bilirubin 0.4 mg/dL (0.0-1.2) 03/05/16 08:20 AST 20 Units/L (5-34) 03/05/16 08:20 ALT 29 Units/L (0-55) 03/05/16 08:20 Alkaline Phosphatase 68 Units/L (38-126) 03/05/16 08:20 Serum Total Protein 6.2 g/dL (6.0-8.3) 03/05/16 08:20 Albumin 3.1 g/dL (3.5-5.0) L 03/05/16 08:20 Globulin 3.1 g/dL (2.4-3.5) 03/05/16 08:20 Albumin/Globulin Ratio 1.0 (1.1-2.2) L 03/05/16 08:20 Impressions Chest X-Ray 03/06/16 10:05 IMPRESSION: Cardiomegaly with interstitial edema or infiltrate. Recommend follow-up imaging to confirm resolution D/ / Leonard Rivers MD / Leonard Rivers MD Interpreting Provider: Leonard Rivers MD Date of admission: 03/05/16 10:06 Primary care physician: Ashok Tadeo MD Discharging clinician: Ashok Tadeo Anticipated date of discharge: 03/07/16 - Patient Status Disposition: Home, Self-Care Functional capacity at discharge: independent ambulation Overall status at discharge: patient is progressing back to baseline - Discharge Instructions Instructions: Warfarin (By mouth), Vitamin K in Foods (DC), Safe Use of Anticoagulants (DC) Follow Up With: Ashok Tadeo MD [Primary Care Provider] - 03/11/16 2:00 pm - Diet and Activity Activity: increase activity as tolerated, wear oxygen at all times Diet: diabetic diet, low fat, low cholesterol Interval History: This morning she felt like she was ready to go home. She slept well. Last night she ambulated in the [place] and felt like she was back to her baseline. No chest pain. No unusual dyspnea. Cough is improved. Sputum is approved. Vitals are stable. Hospital course: Ms. De La Cruz is a 80 year old female with known history of oxygen dependent COPD and known CAD was admitted with exacerbation of COPD, bronchitis and back pain. She was admitted on a Friday and discharged on Friday. Please see the above diagnoses and hospital course. - Time Spent with Patient Total time spent providing and/or coordinating discharge services: - Constitutional Vitals: Temp Pulse Resp BP Pulse Ox 97.6 F 73 20 129/75 94 L 03/07/16 04:40 03/07/16 04:40 03/07/16 04:40 03/07/16 04:40 03/07/16 04:40 General appearance: Present: A&O X 3, no acute distress, obese, answers questions appropriately - Respiratory Respiratory exam: Present: CTAB (But diminished throughout) - Cardiovascular Cardiovascular exam: Present: RRR, +S1, +S2 - GI/Abdominal GI/Abdominal exam: Present: soft. Absent: tenderness - Extremities Exam Extremities exam: Absent: pedal edema, tenderness - Back Exam Back exam: Absent: vertebral tenderness
[2016-03-07] MEDS: Nitroglycerin 0.3 MG PATCH.TD24 TD SCH (08:00)
[2016-03-07] MEDS: Diltiazem CD (24hr) 120 MG CAPSULE PO SCH (08:02)
[2016-03-07] MEDS: Insulin LISPRO 300 UNITS/3 ML VIAL SQ SCH (08:03)
[2016-03-07] MEDS: Lisinopril 20 MG TABLET PO SCH (08:03)
[2016-03-07] MEDS: Cholecalciferol (D-3) 1,000 UNIT TABLET PO SCH (08:03)
[2016-03-07] MEDS: Furosemide 20 MG TABLET PO SCH (08:03)
[2016-03-07] MEDS: *HR* GlipiZIDE 5 MG TABLET PO SCH (08:03)
[2016-03-07] MEDS: Isosorbide MONOnitrate (24 HR) 60 MG TAB.ER.24H PO SCH (08:03)
[2016-03-07] MEDS: Azithromycin 500 MG in D5% in Water 250 ML IVPB SCH (08:05)
[2016-03-07 08:08] VITALS: BP 133/75
[2016-03-07] MEDS: (Calcium Carbonate/Vitamin D3 [Calcium 250+D Tablet] PO SCH (08:13)
[2016-03-07] MEDS: PYRIDOXINE PO SCH (08:14)
[2016-03-07] MEDS: Budesonide Neb 0.5 MG/2 ML IH SCH ×2 (08:14→09:15)
[2016-03-07] MEDS: (Formoterol Fumarate [Perforomist] 20 MCG) IH SCH (08:14)
[2016-03-07] MEDS: CYANOCOBALAMIN PO SCH (08:14)
[2016-03-07] MEDS: [UNRECOGNIZED DRUG - OTHER] PO SCH (08:14)
[2016-03-07] MEDS: CefTRIAXone 1,000 MG in D5% in Water (Mini-Bag+) 100 ML IVPB SCH (09:41)
[2016-03-12] MEDS ORDERED: (Alendronate Sodium [Alendronate Sodium] 70 MG) PO SCH (09:00)
== END 2016-03-07 10:30 | disposition home or self-care (01) ==
LOC: INPGRE 07:27 → EMEROOGRE 07:27 → INPGRE 10:28
PROVIDERS: ADMIT Family Medicine; ATTEND Family Medicine

== ENCOUNTER 2018-02-04 08:54 | Inpatient (IN) ==
[2018-02-04] MEDS ORDERED: Ipratropium/Albuterol Neb 3 ML IH ONE (09:06)
[2018-02-04] MEDS ORDERED: methylPREDNISolone 125 MG/2 ML VIAL IVP ONE (09:06)
[2018-02-04 09:49] LABS: Basophils % 0.1 %; Eosinophils % 0.3 %; Hematocrit 30.1 % (35.3-44.9); Hemoglobin 8.8 g/dL (11.5-15.4); Immature Granulocytes % 0.4 % (0-4); Lymphocytes # 1.7 K/mcL (0.6-4.6); Lymphocytes % 11.2 %; Mean Corpuscular HGB Conc 29.2 g/dL (31.6-35.5); Mean Corpuscular Hemoglobin 22.7 pg (28.0-33.3); Mean Corpuscular Volume 77.8 fL (83.0-100.0); Mean Platelet Volume 9.4 fL (9.4-12.4); Monocytes # 1.2 K/mcL (0.0-1.3); Monocytes % 8.2 %; Neutrophils # 11.7 K/mcL (1.6-8.9); Platelet Count 280 K/mcL (140-400); Red Blood Count 3.87 M/mcL (3.82-4.97); Segmented Neutrophils % 79.8 %
--- NOTE | 2018-02-04 09:54 | Emergency Department Note ---
Disposition Clinical Impression: Pneumonia Qualifiers: Pneumonia type: due to unspecified organism Laterality: left Lung location: lower lobe of lung Qualified Code(s): J18.1 - Lobar pneumonia, unspecified organism Disposition: Admitted As Inpatient Condition: Good Referrals: Ashok Tadeo MD [Primary Care Provider] - Forms: ED Satisfaction Letter Time of Disposition: 10:46 General Adult HPI - General Chief complaint: ED Shortness of Breath/Dyspnea Stated complaint: shortness of breath Time Seen by Provider: 02/04/18 09:05 Source: patient, family Limitations: no limitations Nursing Notes Reviewed: Yes Vital Signs Reviewed: Yes - History of Present Illness HPI Narrative: 82-year-old white female presents emergency department via private vehicle co mplaining of shortness of breath. She was seen here one week ago and diagnosed with bronchitis. She says that she was given prednisone and doxycycline, but she says that she is not getting any better. She says that she tried to take some Mucinex after having this approved by her family physician, but this really has not helped much either. She is home oxygen dependent and usually uses 2 L of home oxygen and this keeps her oxygen saturation she says about 97-98%. She says that she is having difficulty keeping it above 93% and she has turned her oxygen up to 3 L/m. She denies any production from her cough, but she is concerned that she has pneumonia. She also has a slight temperature upon arrival here. She is not currently dyspneic and does not have difficulty in talking or relating a history. She has a history of atrial fibrillation and coronary artery disease. She relates that she has had 17 heart catheterizations. Pain Scale: 0 - Related Data Home Medications Medication Instructions Recorded Confirmed Albuterol Sulfate [Albuterol 2 puff IH Q4H PRN 10/05/14 02/04/18 Inhaler] Alendronate Sodium 70 mg PO QWEEK 10/05/14 02/04/18 Atorvastatin [Lipitor] 80 mg PO HS 10/05/14 02/04/18 Calcium Carbonate/Vitamin D3 1 each PO BID 10/05/14 02/04/18 [Calcium 250+D Tablet] Clopidogrel [Plavix] 75 mg PO DAILY 10/05/14 02/04/18 Ezetimibe [Zetia] 10 mg PO HS 10/05/14 02/04/18 Formoterol Fumarate [Perforomist] 20 mcg IH BID 10/05/14 02/04/18 Furosemide [Lasix] 20 mg PO DAILY 10/05/14 02/04/18 GlipiZIDE [Glucotrol] 5 mg PO BIDWM 10/05/14 02/04/18 Nitroglycerin 0.2 mg TD DAILY 10/05/14 02/04/18 Sotalol HCl [Betapace] 120 mg PO BID 10/05/14 02/04/18 Warfarin [Coumadin] 8 mg PO DAILY 12/31/14 02/04/18 Cholecalciferol (D-3) [Vitamin D] 1,000 unit PO DAILY 03/05/16 02/04/18 Diltiazem CD (24hr) [Cardizem CD] 120 mg PO BID 03/05/16 02/04/18 Isosorbide MONOnitrate (24 HR) 90 mg PO DAILY 03/05/16 02/04/18 [Imdur] Esomeprazole Magnesium [Nexium] 40 mg PO DAILY 04/08/16 02/04/18 Fish Oil/Dha/Epa [Fish Oil 1,200 2 each PO DAILY 04/08/16 02/04/18 mg Fish Oil] Budesonide Neb [Pulmicort Neb] 0.25 mg IH BID 07/01/17 02/04/18 Tiotropium [Spiriva] 18 mcg IH DAILY 07/01/17 02/04/18 Aspirin [Lo-Dose Aspirin EC] 81 mg PO DAILY 11/25/17 02/04/18 Cyanocobalamin/Folic AC/Vit B6 1 each PO DAILY 11/25/17 02/04/18 [Folbic Tablet] Loratadine [Claritin] 10 mg PO DAILY 11/25/17 02/04/18 Budesonide Neb [Pulmicort Neb] 0.25 mg IH BIDR 02/04/18 02/04/18 Allergies Allergy/AdvReac Type Severity Reaction Status Date / Time bacitracin Allergy Blister Verified 07/01/17 05:53 [From Neosporin ([id number])] cetirizine Allergy Confusion Verified 07/01/17 05:53 ciprofloxacin Allergy Difficulty Verified 07/01/17 05:53 Breathing codeine Allergy Drowsy Verified 07/01/17 05:53 diazepam [From Valium] Allergy See Verified 07/01/17 05:53 Comments miconazole Allergy Blister Verified 07/01/17 05:53 [From Neosporin AF] Neomycin Allergy Blister Verified 07/01/17 05:53 Penicillins Allergy See Verified 07/01/17 05:53 Comments polymyxin B Allergy Blister Verified 07/01/17 05:53 promethazine [From Phenergan] Allergy See Verified 07/01/17 05:53 Comments ranolazine [From Ranexa] Allergy See Verified 01/28/18 17:06 Comments Sulfa (Sulfonamide Allergy Confusion Verified 07/01/17 05:53 Antibiotics) All systems ED: reviewed and negative except as stated. Constitutional: Reports: as per HPI, fever. Denies: chills, weakness Eyes: Denies: eye pain, eye discharge, vision change ENT ED: Denies: ear pain, throat pain, dental pain, hearing loss, epistaxis, co ngestion, dysphagia Cardiovascular: Denies: chest pain, palpitations, dyspnea on exertion, edema, syncope Respiratory: Reports: as per HPI, cough. Denies: dyspnea, hemoptysis, sputum production Gastrointestinal: Denies: abdominal pain, nausea, vomiting, diarrhea, constipation, hematemesis, melena, hematochezia Genitourinary: Denies: dysuria, frequency, hematuria, discharge Musculoskeletal: Denies: back pain, neck pain, arthralgia, myalgia Integumentary: Denies: rash, abrasion, lesions Neurological: Denies: headache, weakness, numbness, paresthesias, confusion, abnormal gait, vertigo Psychiatric: Denies: anxiety, depression, suicidal thoughts, homicidal thoughts, auditory hallucinations, visual hallucinations Endocrine: Denies: fatigue Hematological/Lymphatic: Denies: easy bleeding, easy bruising Allergic/Immunologic: Denies: facial swelling, urticaria Past Medical History - Past Medical History Medical history: Reports: atrial fibrillation, cancer, CHF, COPD, coronary artery disease, diabetes, GERD, hyperlipidemia, hypertension, pulmonary embolus, other Surgical history: Reports: angioplasty/stent, appendectomy, breast surgery, cataract, cholecystectomy, pacemaker/AICD Psychiatric history: Reports: no psych history [employer] history: Reports: bilateral tubal ligation - Social History Smoking Status: Former smoker Smokeless Tobacco Status: No Alcohol use: Reports: none Drug use: Reports: none Physical Exam - General Limitations: no limitations General appearance: alert - Head Head exam: atraumatic, normocephalic, normal inspection - Eye Eye exam: Present: normal appearance, PERRL, EOMI - ENT ENT exam: normal exam, normal oropharynx, mucous membranes moist - Neck Neck exam: Present: normal inspection, full ROM, trachea midline. Absent: tenderness, meningismus, lymphadenopathy - Chest Chest inspection: Present: normal inspection, symmetric chest wall rise - Respiratory Respiratory exam: Present: other (Decreased breath sounds bilaterally, but equal. Scattered rhonchi throughout, more prominent at the left lower. Minimal expiratory wheezing.). Absent: stridor, accessory muscle use, prolonged expiratory phase - Cardiovascular Cardiovascular exam: Present: regular rate, normal rhythm, normal heart sounds - Abdominal Exam Abdominal exam: Present: soft, Non-Tender. Absent: tenderness, distention, guarding, rebound, rigidity, mass, pulsatile mass - Extremities Exam Extremities exam: Present: normal inspection, full ROM. Absent: tenderness, pedal edema - Back Exam Back exam: Present: normal inspection, full ROM. Absent: tenderness, CVA tenderness (R), CVA tenderness (L) - Neurological Exam Neurological exam: Present: alert, oriented X3, CN II-XII intact. Absent: motor sensory deficit - Psychiatric Psychiatric exam: Present: normal affect, normal mood - Skin Skin exam: Present: warm, dry, intact, normal color Course Course Narrative: The patient remained stable throughout her emergency department stay. Following her medications she says that she feels about the same. After reviewing her x- rays and laboratory reports I consulted Dr. Tadeo at 10:45 AM and the patient will be admitted here in [place] for further care. Vital Signs Temperature 99.8 F H 02/04/18 08:56 Pulse Rate 83 02/04/18 08:56 Respiratory Rate 20 02/04/18 08:56 Blood Pressure 137/55 02/04/18 08:56 O2 Sat by Pulse Oximetry 92 02/04/18 08:56 Temperature 99.8 F H 02/04/18 08:56 Pulse Rate 83 02/04/18 08:56 Respiratory Rate 20 02/04/18 08:56 Blood Pressure 137/55 02/04/18 08:56 O2 Sat by Pulse Oximetry 94 02/04/18 09:24 Oxygen Delivery Oxygen Delivery Nasal Cannula Medical Decision Making - Lab Data Lab results reviewed: Yes I reviewed the patient's lab results. Result diagrams: 02/04/18 09:42 02/04/18 09:42 Lab Results 02/04/18 02/04/18 02/04/18 Range/Units 09:42 09:42 09:42 WBC 14.7 H (4.3-11.1) K/mcL RBC 3.87 (3.82-4.97) M/mcL Hgb 8.8 L (11.5-15.4) g/dL Hct 30.1 L (35.3-44.9) % MCV 77.8 L (83.0-100.0) fL MCH 22.7 L (28.0-33.3) pg MCHC 29.2 L (31.6-35.5) g/dL RDW 18.0 H (11.5-14.5) % Plt Count 280 (140-400) K/mcL MPV 9.4 (9.4-12.4) fL Immature Gran % 0.4 (0-4) % Seg Neutrophils % 79.8 % Lymphocytes % 11.2 % Monocytes % 8.2 % Eosinophils % 0.3 % Basophils % 0.1 % Neutrophils # 11.7 H (1.6-8.9) K/mcL Lymphocytes # 1.7 (0.6-4.6) K/mcL Monocytes # 1.2 (0.0-1.3) K/mcL Eosinophils # 0.0 (0.0-0.6) K/mcL Basophils # 0.0 (0.0-0.2) K/mcL PT 47.0 H* (9.4-12.1) Seconds INR 4.2 Sodium 140 (136-145) mEq/L Potassium 3.4 L (3.5-5.1) mEq/L Chloride 98 (98-107) mEq/L Carbon Dioxide 35 H (23-29) mEq/L BUN 26 H (8-23) mg/dL Creatinine 0.73 (0.60-1.20) mg/dL Est GFR ( Amer) > 60 (> 60) Est GFR (Non-Af Amer) > 60 (> 60) BUN/Creatinine Ratio 36 H (6-26) Glucose 160 H (70-105) mg/dL Calculated Osmolality 298 (280-300) Calcium 8.5 L (8.6-10.3) mg/dL Total Bilirubin 0.3 (0.3-1.0) mg/dL AST 19 (13-39) Units/L ALT 23 (7-52) Units/L Alkaline Phosphatase 59 (34-104) Units/L Troponin I (< 0.04) ng/mL Serum Total Protein 6.2 L (6.4-8.9) g/dL Albumin 3.9 (3.5-5.7) g/dL Globulin 2.3 L (2.4-3.5) g/dL Albumin/Globulin Ratio 1.7 (1.1-2.2) 02/04/18 Range/Units 09:42 WBC (4.3-11.1) K/mcL RBC (3.82-4.97) M/mcL Hgb (11.5-15.4) g/dL Hct (35.3-44.9) % MCV (83.0-100.0) fL MCH (28.0-33.3) pg MCHC (31.6-35.5) g/dL RDW (11.5-14.5) % Plt Count (140-400) K/mcL MPV (9.4-12.4) fL Immature Gran % (0-4) % Seg Neutrophils % % Lymphocytes % % Monocytes % % Eosinophils % % Basophils % % Neutrophils # (1.6-8.9) K/mcL Lymphocytes # (0.6-4.6) K/mcL Monocytes # (0.0-1.3) K/mcL Eosinophils # (0.0-0.6) K/mcL Basophils # (0.0-0.2) K/mcL PT (9.4-12.1) Seconds INR Sodium (136-145) mEq/L Potassium (3.5-5.1) mEq/L Chloride (98-107) mEq/L Carbon Dioxide (23-29) mEq/L BUN (8-23) mg/dL Creatinine (0.60-1.20) mg/dL Est GFR ( Amer) (> 60) Est GFR (Non-Af Amer) (> 60) BUN/Creatinine Ratio (6-26) Glucose (70-105) mg/dL Calculated Osmolality (280-300) Calcium (8.6-10.3) mg/dL Total Bilirubin (0.3-1.0) mg/dL AST (13-39) Units/L ALT (7-52) Units/L Alkaline Phosphatase (34-104) Units/L Troponin I < 0.03 (< 0.04) ng/mL Serum Total Protein (6.4-8.9) g/dL Albumin (3.5-5.7) g/dL Globulin (2.4-3.5) g/dL Albumin/Globulin Ratio (1.1-2.2) - Radiology Data Radiology results reviewed: Yes I reviewed the patient's radiology results. One view chest: IMPRESSION: 1. Interval worsening since 01/28/2018 of a moderate left pleural effusion with adjacent opacity. 2. Trace right effusion. 3. COPD. D/ / 02/04/2018 09:54:08 Heather Linton MD / [facility] - EKG Data EKG #1 EKG results narrative: Twelve-lead EKG showed a paced rhythm. Rate 82. Normal axis. No acute ST elevation or depression appreciated.
[2018-02-04 09:57] LABS: INR 4.2
[2018-02-04 10:03] LABS: Alanine Aminotransferase 23 Units/L (7-52); Albumin 3.9 g/dL (3.5-5.7); Albumin/Globulin Ratio 1.7 (1.1-2.2); Alkaline Phosphatase 59 Units/L (34-104); Aspartate Amino Transferase 19 Units/L (13-39); BUN/Creatinine Ratio 36 (6-26); Bilirubin,Total 0.3 mg/dL (0.3-1.0); Blood Urea Nitrogen 26 mg/dL (8-23); Calcium 8.5 mg/dL (8.6-10.3); Carbon Dioxide 35 mEq/L (23-29); Chloride 98 mEq/L (98-107); Globulin 2.3 g/dL (2.4-3.5); Glucose 160 mg/dL (70-105); Osmolality,Calculated 298 (280-300); Potassium 3.4 mEq/L (3.5-5.1); Sodium 140 mEq/L (136-145); Total Protein 6.2 g/dL (6.4-8.9); eGFR For Non-African Americans > 60 (> 60)
[2018-02-04] MEDS ORDERED: Levofloxacin 750 MG/150 ML 750 MG/150 ML BAG IVPB ONE (10:24)
[2018-02-04] MEDS ORDERED: AZTREONAM IVPB ONE (10:30)
[2018-02-04] MEDS ORDERED: SODIUM CHLORIDE 0.9% IVPB ONE (10:30)
[2018-02-04] MEDS ORDERED: NON-FORMULARY MEDICATION 1 EACH EACH (Alendronate Sodium [Alendronate Sodium] 70 MG) PO SCH (12:31)
[2018-02-04] MEDS ORDERED: Naloxone 0.4 MG/ML INJ IVP PRN (12:31)
[2018-02-04] MEDS ORDERED: Ipratropium/Albuterol Neb 3 ML IH PRN (13:23)
[2018-02-04] MEDS ORDERED: Ipratropium/Albuterol Neb 3 ML ONE (13:29)
[2018-02-04] MEDS: Nitroglycerin 0.4 MG TAB.SUBL SL PRN (15:07)
[2018-02-04] MEDS: cefTRIAXone 1,000 MG in 0.9 % Sodium Chloride Mini Bag 100 ML IVPB SCH (15:48)
[2018-02-04] MEDS: Albuterol 2.5 MG/3 ML NEBULIZER IH SCH ×2 (15:49→20:47)
[2018-02-04] MEDS ORDERED: Aztreonam 500 MG in 0.9 % Sodium Chloride 50 ML IVPB SCH (16:00)
[2018-02-04] MEDS: *HR* GlipiZIDE 5 MG TABLET PO SCH (17:24)
[2018-02-04] MEDS: Azithromycin 500 MG in D5% in Water 250 ML IVPB SCH (17:24)
[2018-02-04] MEDS: Diltiazem CD (24hr) 120 MG CAPSULE PO SCH (19:46)
[2018-02-04] MEDS: Isosorbide MONOnitrate (24 HR) 30 MG TAB.ER.24H PO SCH (20:46)
[2018-02-04] MEDS: Budesonide Neb 0.25 MG/2 ML IH SCH (20:47)
--- NOTE | 2018-02-04 21:45 | Internal Med History&Physical ---
Date of Encounter: 02/05/18 Time of Encounter: 21:45 Assessment and Plan (1) Pneumonia Current visit: Yes Status: Acute Patient is failed outpatient treatment in the ER twice, now has left lower lobe pleural effusion and left-sided infiltrate. Elevated white blood cell count and increased oxygen requirements. Blood cultures have been sent. Rocephin and Zithromax have been started. Tonight she is more comfortable. Qualifiers: Pneumonia type: due to unspecified organism Laterality: left Lung location: lower lobe of lung Qualified Code(s): J18.1 - Lobar pneumonia, unspecified organism (2) Anemia Current visit: Yes Status: Chronic Hemoglobin 8.8 and she chronically has anemia. We will follow. No acute bleeding melena or hematochezia. Qualifiers: Anemia type: unspecified type Qualified Code(s): D64.9 - Anemia, unspecified (3) COPD (chronic obstructive pulmonary disease) Current visit: Yes Status: Chronic Chronic history of COPD and oxygen dependent. Today she has increased requirements up to 5 L with her pneumonia. Currently no wheezing. Nebulizer treatments have been ordered. Qualifiers: COPD type: COPD with acute exacerbation Qualified Code(s): J44.1 - Chronic obstructive pulmonary disease with (acute) exacerbation (4) Chest pain Current visit: Yes Status: Acute She had an episode of anginal chest pain relieved with one nitroglycerin today. Continue to follow. Qualifiers: Chest pain type: unspecified Qualified Code(s): R07.9 - Chest pain, unspecified (5) Hypokalemia Current visit: Yes Status: Acute Mild hypokalemia. Will recheck in the morning. (6) Anticoagulated on Coumadin Current visit: Yes Status: Chronic Chronically anticoagulated with Coumadin because of history of atrial fib rillation. Her pro times elevated to 4 range. Coumadin was held. Likely elevated because of her recent antibiotic use. (7) Coronary artery disease Current visit: Yes Status: Chronic Known history coronary artery disease and 17 heart catheterization and 5 stent placements. She has a ventricular pacemaker. One episode of angina. She seems to be at her baseline. Qualifiers: Coronary Disease-Associated Artery/Lesion type: unspecified vessel or lesion type [place] vs. transplanted heart: [place] heart Associated angina: angina presence unspecified Qualified Code(s): I25.10 - Atherosclerotic heart disease of [place] coronary artery without angina pectoris (8) Diabetes mellitus Current visit: No Status: Chronic History of diabetes mellitus and well-controlled sugars. Last glycohemoglobin is in the normal range Qualifiers: Diabetes mellitus type: type 2 Diabetes mellitus usp insulin use: without roasterman use Diabetes mellitus complication status: with unspecified complications Qualified Code(s): E11.8 - Type 2 diabetes mellitus with unspecified complications (9) Pacemaker Current visit: No Status: Chronic (10) DVT prophylaxis Current visit: Yes Status: Acute Patient's chronically on Coumadin therefore we will not start Lovenox. Internal Medicine - H&P: HPI Chief complaint: Getting worse oxygen level was dropping Admitted From: Emergency Dept Plans for Post Hospital Care: Home History of present illness: Ms. De La Cruz is a 82 year old female with known history of CAD and multiple stents, prior atrial fibrillation, diabetes mellitus, COPD and oxygen dependent. She said she was doing well until about a week ago she started having sore throat and "chest on fire". She came to the emergency room was evaluated and diagnosed as having a "respiratory infection" placed on prednisone and doxycycline after negative workup for pneumonia or heart problems. She said she got a little bit better, that she started having more congestion, dry cough "could not get anything up". She started having a "weight on my chest all the time", she felt feverish but no documented fever at home. She started having some left-sided back and flank pain. She was brought to the emergency room when her saturation dropped to 86% despite increasing her chronic oxygen flow from 2 L to 3 L. In the emergency room she was found to have left pleural effusion and infiltrate, elevated white blood cell count, low-grade fever difficulties maintaining adequate oxygenation. Having failed outpatient treatment on 2 occasions in the ER, it is recommended that she be admitted to the hospital for more aggressive care. After admission she actually had an angina attack, her usual type, with a "grasping in the center of my chest". She took 1 nitroglycerin that relieved it. She has had no recurrence of this. When I checked later she said she felt much better. Her oxygen demand is lower and is now down to 2 or 3 L down from 5 L per nasal cannula. Past Med Surg Social Fam HX - Past Medical History Medical history: atrial fibrillation, cancer (Left breast cancer status post mastectomy), CHF, COPD, coronary artery disease (She has had 17 heart catheterizations and 5 stents.), diabetes, GERD, hyperlipidemia, hypertension, pulmonary embolus, other Additional medical history: MACULAR DEGENERATION Psychiatric history: no psych history - Past Surgical History Surgical History: angioplasty/stent, appendectomy, breast surgery, cataract, cholecystectomy, pacemaker/AICD Additional surgical history: Left mastectomy, Cardiac stents X 5, PACEMAKER, RT FOOT SURG, BASAL CELL SURG FROM FACE, Multiple heart caths - Social History Smoking Status: Former smoker Smokeless Tobacco Status: No Alcohol use: none Drug use: none Current living situation: Home - Independent Activity Level: Independent ambulation Recent Out of Country Travel Within the Last 8 Weeks: No Exposure or Possible Exposure to Illness During Travel: No - Family History Mother Living Status: Age at : 85 Cause of : Heart disease, diabetes, hypertension Hx Family Cardiac Disorders: Yes Hx Family Endocrine Disorder: Yes Father Adopted: No Family Member Ethnicity: Non- Living Status: Age at : 87 Cause of : COPD leukemia Hx Family Cardiac Disorders: No Hx Family Respiratory Disorders: Yes Hx Family Cancer: Yes Hx Family GI Disorders: No Hx Family Endocrine Disorder: No Hx Family Neuromuscular Disorders: No Hx Family Neurologic Disorders: No Hx Family HEENT Disorders: No Hx Family Autoimmune Disorders: No Sister Living Status: Still Living Hx Family Cancer: Yes (Breast cancer) Internal Medicine - H&P: Meds Albuterol Sulfate [Albuterol Inhaler] 2 puff IH Q4H PRN 10/05/14 [History] Alendronate Sodium 70 mg PO QWEEK 10/05/14 [History] Atorvastatin [Lipitor] 80 mg PO HS 10/05/14 [History] Calcium Carbonate/Vitamin D3 [Calcium 250+D Tablet] 1 each PO BID 10/05/14 [History] Clopidogrel [Plavix] 75 mg PO DAILY 10/05/14 [History] Ezetimibe [Zetia] 10 mg PO HS 10/05/14 [History] Formoterol Fumarate [Perforomist] 20 mcg IH BID 10/05/14 [History] Furosemide [Lasix] 20 mg PO DAILY 10/05/14 [History] GlipiZIDE [Glucotrol] 5 mg PO BIDWM 10/05/14 [History] Nitroglycerin 0.2 mg TD DAILY 10/05/14 [History] Sotalol HCl [Betapace] 120 mg PO BID 10/05/14 [History] Warfarin [Coumadin] 8 mg PO DAILY 12/31/14 [History] Cholecalciferol (D-3) [Vitamin D] 1,000 unit PO DAILY 03/05/16 [History] Diltiazem CD (24hr) [Cardizem CD] 120 mg PO BID 03/05/16 [History] Isosorbide MONOnitrate (24 HR) [Imdur] 90 mg PO BID 03/05/16 [History] Esomeprazole Magnesium [Nexium] 40 mg PO DAILY 04/08/16 [History] Fish Oil/Dha/Epa [Fish Oil 1,200 mg Fish Oil] 2 each PO DAILY 04/08/16 [History] Budesonide Neb [Pulmicort Neb] 0.25 mg IH BID 07/01/17 [History] Tiotropium [Spiriva] 18 mcg IH DAILY 07/01/17 [History] Aspirin [Lo-Dose Aspirin EC] 81 mg PO DAILY 11/25/17 [History] Cyanocobalamin/Folic AC/Vit B6 [Folbic Tablet] 1 each PO DAILY 11/25/17 [History] Loratadine [Claritin] 10 mg PO DAILY 11/25/17 [History] Budesonide Neb [Pulmicort Neb] 0.25 mg IH BIDR 02/04/18 [History] Nitroglycerin 0.1 mg TD DAILY 02/04/18 [History] Allergy/AdvReac Type Severity Reaction Status Date / Time bacitracin Allergy Blister Verified 07/01/17 05:53 [From Neosporin ([id number])] cetirizine Allergy Confusion Verified 07/01/17 05:53 ciprofloxacin Allergy Difficulty Verified 07/01/17 05:53 Breathing codeine Allergy Drowsy Verified 07/01/17 05:53 diazepam [From Valium] Allergy See Verified 07/01/17 05:53 Comments miconazole Allergy Blister Verified 07/01/17 05:53 [From Neosporin AF] Neomycin Allergy Blister Verified 07/01/17 05:53 Penicillins Allergy See Verified 07/01/17 05:53 Comments polymyxin B Allergy Blister Verified 07/01/17 05:53 promethazine [From Phenergan] Allergy See Verified 07/01/17 05:53 Comments ranolazine [From Ranexa] Allergy See Verified 01/28/18 17:06 Comments Sulfa (Sulfonamide Allergy Confusion Verified 07/01/17 05:53 Antibiotics) - Constitutional Constitutional: fever(s), lethargy, malaise, no excessive sweating - EENT Eyes: no change in vision Ears: other (She thought she started having some drainage from her ears.) Nose, mouth and throat: dry mouth, no sinus pressure, no sore throat - Breasts Additional comments: Status post left mastectomy for cancer. - Cardiovascular Cardiovascular ROS IM: as per HPI, chest pain, dyspnea, no irregular heart rhythm, no palpitations - Respiratory Respiratory: as per HPI, cough, dyspnea, chest congestion, no hemoptysis, no wheezing - Gastrointestinal Gastrointestinal: no abdominal pain, no constipation, no diarrhea, no hematochezia, no melena - Genitourinary Genitourinary: no difficulty voiding, no dysuria Menstruation: post menopausal - Integumentary Integumentary IM: no new lesions, no pruritus, no rash - Neurological Neurological ROS: weakness (Generalized weakness.), no focal weakness, no frequent falls, no radicular pain - Psychiatric Psychiatric: no confusion - Constitutional Vitals: Temp Pulse Resp BP Pulse Ox 97.9 F 99 17 114/56 94 02/04/18 19:14 02/04/18 19:14 02/04/18 19:14 02/04/18 19:14 02/04/18 19:14 General appearance: Present: A&O X 3, no acute distress, answers questions appropriately - Head Head exam: Present: atraumatic - Eye Eye exam: Present: EOMI, PERRL. Absent: scleral icterus Pupils: Present: PERRL - ENT ENT exam: Present: mucous membranes dry Additional comments: Wax is noted in the right ear canal. Left is normal. First set of dentures, her teeth in lower gums - Neck Neck exam general surgery: Absent: lymphadenopathy, tenderness, nuchal rigidity, thyromegaly - Respiratory Additional comments: Decreased breath sounds throughout. Markedly decreased breath sounds and crackles heard in left lower lobe with dullness to percussion. No wheezing. Left posterior chest wall and flank area tender on palpation - Cardiovascular Cardiovascular exam: Present: RRR, +S1, +S2. Absent: systolic murmur - GI/Abdominal GI/Abdominal exam: Present: soft, no peritoneal signs. Absent: guarding, mass, tenderness - Extremities Exam Extremities exam: Present: warm. Absent: calf tenderness, pedal edema, tenderness - Neurological Exam Neurological exam: Present: CN II-XII intact, no focal deficits - Psychiatric Psychiatric exam: Present: normal affect, normal mood - Skin Skin exam: Absent: rash Internal Med - H&P Results - Labs CBC & Chem 7: 02/05/18 05:25 02/05/18 05:25 Labs: Short CBC 02/04/18 Range/Units 09:42 WBC 14.7 H (4.3-11.1) K/mcL Hgb 8.8 L (11.5-15.4) g/dL Hct 30.1 L (35.3-44.9) % Plt Count 280 (140-400) K/mcL Neutrophils # 11.7 H (1.6-8.9) K/mcL BMP 02/04/18 09:42 Sodium 140 Potassium 3.4 L Chloride 98 Carbon Dioxide 35 H BUN 26 H Creatinine 0.73 Glucose 160 H Calcium 8.5 L Cardiac Enzymes 02/04/18 Range/Units 09:42 Troponin I < 0.03 (< 0.04) ng/mL Liver Function 02/04/18 Range/Units 09:42 Total Bilirubin 0.3 (0.3-1.0) mg/dL AST 19 (13-39) Units/L ALT 23 (7-52) Units/L Alkaline Phosphatase 59 (34-104) Units/L Albumin 3.9 (3.5-5.7) g/dL Labs have been reviewed with moderately elevated white blood cell count of 14,700. Chronic anemia with hemoglobin 8.8. Electrolytes and renal function are stable except for minimally low potassium 3.4. Liver functions are normal. Troponin is less than 0.03. - EKG Data EKG comments: Ventricular paced rhythm. No acute changes noted. - Impressions ITS Impressions Chest X-Ray 02/04/18 09:06 IMPRESSION: 1. Interval worsening since 01/28/2018 of a moderate left pleural effusion with adjacent opacity. 2. Trace right effusion. 3. COPD. D/ / 02/04/2018 09:54:08 Heather Linton MD / [facility] Interpreting Provider: Heather Linton MD - Diagnostic Studies Chest x-ray Additional comments: Chest x-ray shows left pleural effusion and infiltrate. Right side relatively clear. Definitely worse from 1 week ago.
[2018-02-04] MEDS ORDERED: Budesonide Neb 0.25 MG/2 ML IH SCH (22:00)
[2018-02-05] MEDS: Albuterol 2.5 MG/3 ML NEBULIZER IH SCH ×4 (03:54→20:45)
[2018-02-05 05:32] LABS: Basophils % 0.1 %; Hematocrit 27.5 % (35.3-44.9); Hemoglobin 8.3 g/dL (11.5-15.4); Immature Granulocytes % 0.6 % (0-4); Lymphocytes # 1.6 K/mcL (0.6-4.6); Mean Corpuscular HGB Conc 30.2 g/dL (31.6-35.5); Mean Corpuscular Hemoglobin 23.1 pg (28.0-33.3); Mean Corpuscular Volume 76.6 fL (83.0-100.0); Mean Platelet Volume 10.2 fL (9.4-12.4); Monocytes # 0.8 K/mcL (0.0-1.3); Monocytes % 7.6 %; Neutrophils # 8.1 K/mcL (1.6-8.9); Platelet Count 277 K/mcL (140-400); Red Blood Count 3.59 M/mcL (3.82-4.97); Red Cell Distribution Width 17.7 % (11.5-14.5); Segmented Neutrophils % 76.7 %
[2018-02-05 05:42] LABS: INR 3.8; Prothrombin Time 42.6 Seconds (9.4-12.1)
[2018-02-05] MEDS: Nitroglycerin 0.4 MG TAB.SUBL SL PRN (05:43)
[2018-02-05 05:53] LABS: BUN/Creatinine Ratio 36 (6-26); Blood Urea Nitrogen 19 mg/dL (8-23); Calcium 8.7 mg/dL (8.6-10.3); Carbon Dioxide 33 mEq/L (23-29); Chloride 101 mEq/L (98-107); Glucose 148 mg/dL (70-105); Osmolality,Calculated 295 (280-300); Potassium 3.4 mEq/L (3.5-5.1); Sodium 140 mEq/L (136-145); eGFR For Non-African Americans > 60 (> 60)
[2018-02-05] MEDS ORDERED: Isosorbide MONOnitrate (24 HR) 30 MG TAB.ER.24H PO SCH (09:00)
[2018-02-05] MEDS ORDERED: Levofloxacin 750 MG/150 ML 750 MG/150 ML BAG IVPB SCH ×2 (09:00)
[2018-02-05] MEDS ORDERED: EPA PO SCH (09:00)
[2018-02-05] MEDS ORDERED: DHA PO SCH (09:00)
[2018-02-05] MEDS ORDERED: FISH OIL PO SCH (09:00)
[2018-02-05] MEDS ORDERED: [UNRECOGNIZED DRUG - OTHER] PO SCH (09:00)
[2018-02-05] MEDS: Tiotropium 18 MCG inhalation IH SCH (09:10)
[2018-02-05] MEDS: Loratadine 10 MG TABLET PO SCH (09:10)
[2018-02-05] MEDS: Budesonide Neb 0.25 MG/2 ML IH SCH ×2 (09:10→20:58)
[2018-02-05] MEDS: Furosemide 20 MG TABLET PO SCH (09:11)
[2018-02-05] MEDS: Nitroglycerin 0.1 MG PATCH.TD24 TD SCH (09:11)
[2018-02-05] MEDS: Nitroglycerin 0.2 MG PATCH.TD24 TD SCH (09:11)
[2018-02-05] MEDS: Folic Acid 1 MG TABLET PO SCH (09:11)
[2018-02-05] MEDS: Cholecalciferol (D-3) 1,000 UNIT TABLET PO SCH (09:11)
[2018-02-05] MEDS: Isosorbide MONOnitrate (24 HR) 30 MG TAB.ER.24H PO SCH ×2 (09:11→20:57)
[2018-02-05] MEDS: *HR* GlipiZIDE 5 MG TABLET PO SCH ×2 (09:12→16:12)
[2018-02-05] MEDS: Vitamin B Complex/Vit C/Vit E 1 EACH TABLET PO SCH (09:12)
[2018-02-05] MEDS: Diltiazem CD (24hr) 120 MG CAPSULE PO SCH ×2 (09:12→20:58)
[2018-02-05] MEDS: Aspirin Enteric Coated 81 MG Tablet PO SCH (09:12)
--- NOTE | 2018-02-05 12:55 | Internal Med Progress Note ---
Date of Encounter: 02/05/18 Time of Encounter: 12:50 - Assessment and plan (1) Pneumonia Current Visit: Yes Status: Acute Assessment and plan: She feels better having started treatment for her pneumonia. She thinks respiratory treatments are helpful. She is still requiring 3 L per nasal cannula, slightly more than her baseline. Able to be in a chair or bedside commode. White blood cell count is now normal. Continues with Rocephin and Zithromax. Qualifiers: Pneumonia type: due to unspecified organism Laterality: left Lung location: lower lobe of lung Qualified Code(s): J18.1 - Lobar pneumonia, unspecified organism (2) Anemia Current Visit: Yes Status: Chronic Assessment and plan: Hemoglobin slightly lower, but not a big change from her chronic anemia baseline. Qualifiers: Anemia type: unspecified type Qualified Code(s): D64.9 - Anemia, unspecified (3) COPD (chronic obstructive pulmonary disease) Current Visit: Yes Status: Chronic Assessment and plan: Her COPD seems to be stable. Nebulizer treatments are helpful. Continues with her chronic medication as well. Qualifiers: COPD type: COPD with acute exacerbation Qualified Code(s): J44.1 - Chronic obstructive pulmonary disease with (acute) exacerbation (4) Chest pain Current Visit: Yes Status: Acute Assessment and plan: Episode of her stable angina/chest pain early this morning. No acceleration from her baseline. Relieved easily with nitroglycerin wants. Qualifiers: Chest pain type: unspecified Qualified Code(s): R07.9 - Chest pain, unspecified (5) Hypokalemia Current Visit: Yes Status: Acute (6) Anticoagulated on Coumadin Current Visit: Yes Status: Chronic Assessment and plan: Pro time is still elevated. We will recheck tomorrow. We are holding her warfarin/Coumadin. (7) Coronary artery disease Current Visit: Yes Status: Chronic Assessment and plan: Stable angina continues. Continue with her current medications. Qualifiers: Coronary Disease-Associated Artery/Lesion type: unspecified vessel or lesion type [place] vs. transplanted heart: [place] heart Associated angina: angina presence unspecified Qualified Code(s): I25.10 - Atherosclerotic heart disease of [place] coronary artery without angina pectoris (8) Diabetes mellitus Current Visit: No Status: Chronic Assessment and plan: Under adequate control. 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 (10) DVT prophylaxis Current Visit: Yes Status: Acute Assessment and plan: On Coumadin. - Subjective Interval history: Patient states that she slept fairly well except for interruptions by the nurses. She did have an episode of her typical angina at about 5 AM received one nitroglycerin. She has been able to be up out of bed, in a chair, bedside commode, had lunch etc. without any exacerbations. Still requiring oxygen and had to be bumped up from 2 L to 3 L because of saturations drop below 90% when she is active. She states respiratory treatments have been helpful to loosen things up but she still cannot cough or spit out anything. She denies any cardiac type chest pain currently, no dyspnea currently, no GI or symptoms. Good urine output of bowels have moved. No ankle edema. - Constitutional Vitals: Temp Pulse Resp BP Pulse Ox 98.5 F 90 17 172/74 92 02/05/18 09:48 02/05/18 09:48 02/05/18 09:48 02/05/18 09:48 02/05/18 09:48 General appearance: Present: A&O X 3, no acute distress, answers questions appropriately - Respiratory Respiratory exam: Present: decreased breath sounds (Chronically diminished breath sounds throughout, where she no air exchange and left lower lung field. No crackles or rhonchi heard. No respiratory distress.) - Cardiovascular Cardiovascular exam: Present: RRR, +S1, +S2 - GI/Abdominal GI/Abdominal exam: Present: soft. Absent: tenderness - Extremities Exam Extremities exam: Absent: calf tenderness, pedal edema, tenderness Internal Medicine: Result - Labs CBC & Chem 7: 02/05/18 05:25 02/05/18 05:25 Labs: Short CBC 02/05/18 Range/Units 05:25 WBC 10.6 (4.3-11.1) K/mcL Hgb 8.3 L (11.5-15.4) g/dL Hct 27.5 L (35.3-44.9) % Plt Count 277 (140-400) K/mcL Neutrophils # 8.1 (1.6-8.9) K/mcL BMP 02/05/18 05:25 Sodium 140 Potassium 3.4 L Chloride 101 Carbon Dioxide 33 H BUN 19 Creatinine 0.53 L Glucose 148 H Calcium 8.7 Hemoglobin is a bit lower, but fairly close to her baseline. White blood cell count is now normalizing from its previous elevation. Potassium stable but low at 3.4. - ABG Interpretation ABG results: PT/INR, D-dimer PT 42.6 Seconds (9.4-12.1) H 02/05/18 05:25 - Impressions Impressions Chest X-Ray 02/04/18 09:06 IMPRESSION: 1. Interval worsening since 01/28/2018 of a moderate left pleural effusion with adjacent opacity. 2. Trace right effusion. 3. COPD. D/ : / 02/04/2018 09:54:08 Heather Linton MD / nolan Interpreting Provider: Heather Linton MD Consult Discharge Plan - Plan Referrals: Ashok Tadeo MD [Primary Care Provider] -
[2018-02-05] MEDS: cefTRIAXone 1,000 MG in 0.9 % Sodium Chloride Mini Bag 100 ML IVPB SCH (14:33)
[2018-02-05] MEDS: Azithromycin 500 MG in D5% in Water 250 ML IVPB SCH (15:32)
[2018-02-06] MEDS: Albuterol 2.5 MG/3 ML NEBULIZER IH PRN (01:55)
[2018-02-06 04:59] LABS: Basophils % 0.2 %; Eosinophils % 0.2 %; Hematocrit 27.7 % (35.3-44.9); Hemoglobin 8.1 g/dL (11.5-15.4); Immature Granulocytes % 0.6 % (0-4); Lymphocytes # 1.8 K/mcL (0.6-4.6); Lymphocytes % 14.8 %; Mean Corpuscular HGB Conc 29.2 g/dL (31.6-35.5); Mean Corpuscular Hemoglobin 22.6 pg (28.0-33.3); Mean Corpuscular Volume 77.2 fL (83.0-100.0); Mean Platelet Volume 10.2 fL (9.4-12.4); Monocytes # 1.1 K/mcL (0.0-1.3); Monocytes % 8.8 %; Neutrophils # 9.4 K/mcL (1.6-8.9); Nucleated Red Blood Cells 0.2 /100 WBC (0); Platelet Count 289 K/mcL (140-400); Red Blood Count 3.59 M/mcL (3.82-4.97); Red Cell Distribution Width 17.8 % (11.5-14.5); Segmented Neutrophils % 75.4 %
[2018-02-06 05:06] LABS: Prothrombin Time 22.6 Seconds (9.4-12.1)
--- NOTE | 2018-02-06 07:44 | Internal Med Progress Note ---
Date of Encounter: 02/06/18 Time of Encounter: 07:42 - Assessment and plan (1) Pneumonia Current Visit: Yes Status: Acute Assessment and plan: Clinically and symptomatically she is improving. Better aeration left lower lobe. Repeat chest x-ray today. Continue the antibiotics. Continue respiratory treatments. Increase activity as tolerated. She wants to take a shower today. Qualifiers: Pneumonia type: due to unspecified organism Laterality: left Lung location: lower lobe of lung Qualified Code(s): J18.1 - Lobar pneumonia, unspecified organism (2) Anemia Current Visit: Yes Status: Chronic Assessment and plan: Chronically she has anemia. Hemoglobin 8.1. Will follow. Qualifiers: Anemia type: unspecified type Qualified Code(s): D64.9 - Anemia, unspecif ied (3) COPD (chronic obstructive pulmonary disease) Current Visit: Yes Status: Chronic Assessment and plan: Respiratory status is stable. Increasing activity level. Continues with continuous oxygen. Qualifiers: COPD type: COPD with acute exacerbation Qualified Code(s): J44.1 - Chronic obstructive pulmonary disease with (acute) exacerbation (4) Chest pain Current Visit: Yes Status: Acute Assessment and plan: Currently no cardiac chest pain. Does have a history of stable angina uses nitroglycerin frequently. Qualifiers: Chest pain type: unspecified Qualified Code(s): R07.9 - Chest pain, unspecified (5) Hypokalemia Current Visit: Yes Status: Acute Assessment and plan: We will add potassium supplement. (6) Anticoagulated on Coumadin Current Visit: Yes Status: Chronic Assessment and plan: INR is now down to 2.0. We will restart Coumadin/warfarin at 5 mg daily. (Home dose is 8 mg) (7) Coronary artery disease Current Visit: Yes Status: Chronic Qualifiers: Coronary Disease-Associated Artery/Lesion type: unspecified vessel or lesion type [place] vs. 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 She wants to try to have a shower today. She denies any angina. When getting up in the middle the night to go to the toilet, after being in there for a while she became short of breath and diaphoretic and very weak and needed help getting back to bed. She has recuperated. She has had a couple loose bowel movements. She takes nothing for constipation. She denies any blood per rectum. She denies any abdominal pain. She feels that she is breathing better, getting more yellow sputum up now and feels like her lungs are able to inflate better. - Constitutional Vitals: Temp Pulse Resp BP Pulse Ox 98.0 F 73 16 124/56 91 02/06/18 07:12 02/06/18 07:12 02/06/18 07:12 02/06/18 07:12 02/06/18 07:12 General appearance: Present: A&O X 3, no acute distress, answers questions appropriately - Respiratory Respiratory exam: Present: decreased breath sounds (Chronically decreased breath sounds throughout, but she is having better air exchange in the left lower lobe now. No crackles heard. No respiratory distress.) - Cardiovascular Cardiovascular exam: Present: distant heart sounds, RRR, +S1, +S2 - Extremities Exam Extremities exam: Absent: calf tenderness, pedal edema, tenderness Internal Medicine: Result - Labs CBC & Chem 7: 02/06/18 04:23 02/06/18 04:23 Labs: Short CBC 02/06/18 Range/Units 04:23 WBC 12.4 H (4.3-11.1) K/mcL Hgb 8.1 L (11.5-15.4) g/dL Hct 27.7 L (35.3-44.9) % Plt Count 289 (140-400) K/mcL Neutrophils # 9.4 H (1.6-8.9) K/mcL BMP 02/06/18 04:23 Potassium 3.4 L Labs have been reviewed. Hemoglobin slightly lower but basically at baseline. Potassium still a bit low and we will add a supplement. White blood cell count popped back up a bit, better than on admission. - ABG Interpretation ABG results: PT/INR, D-dimer PT 22.6 Seconds (9.4-12.1) H 02/06/18 04:23 Consult Discharge Plan - Plan Referrals: Ashok Tadeo MD [Primary Care Provider] -
[2018-02-06] MEDS: Budesonide Neb 0.25 MG/2 ML IH SCH ×2 (09:28→20:50)
[2018-02-06] MEDS: Albuterol 2.5 MG/3 ML NEBULIZER IH SCH ×4 (09:28→20:18)
[2018-02-06] MEDS: Tiotropium 18 MCG inhalation IH SCH (09:28)
[2018-02-06] MEDS: Isosorbide MONOnitrate (24 HR) 30 MG TAB.ER.24H PO SCH ×2 (09:43→20:16)
[2018-02-06] MEDS: Aspirin Enteric Coated 81 MG Tablet PO SCH (09:43)
[2018-02-06] MEDS: Loratadine 10 MG TABLET PO SCH (09:43)
[2018-02-06] MEDS: Folic Acid 1 MG TABLET PO SCH (09:43)
[2018-02-06] MEDS: Furosemide 20 MG TABLET PO SCH (09:44)
[2018-02-06] MEDS: *HR* GlipiZIDE 5 MG TABLET PO SCH ×2 (09:44→16:35)
[2018-02-06] MEDS: Nitroglycerin 0.1 MG PATCH.TD24 TD SCH (09:44)
[2018-02-06] MEDS: Nitroglycerin 0.2 MG PATCH.TD24 TD SCH (09:44)
[2018-02-06] MEDS: Diltiazem CD (24hr) 120 MG CAPSULE PO SCH ×2 (09:44→20:17)
[2018-02-06] MEDS: Cholecalciferol (D-3) 1,000 UNIT TABLET PO SCH (09:44)
[2018-02-06] MEDS: Vitamin B Complex/Vit C/Vit E 1 EACH TABLET PO SCH (09:45)
[2018-02-06] MEDS: *HR* Warfarin 5 MG TABLET PO SCH (16:35)
[2018-02-06] MEDS: cefTRIAXone 1,000 MG in 0.9 % Sodium Chloride Mini Bag 100 ML IVPB SCH (16:36)
[2018-02-06] MEDS: Azithromycin 500 MG in D5% in Water 250 ML IVPB SCH (16:41)
--- NOTE | 2018-02-06 18:22 | Electrocardiograph Report ---
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
[2018-02-07] MEDS: Isosorbide MONOnitrate (24 HR) 30 MG TAB.ER.24H PO SCH ×2 (08:16→20:47)
[2018-02-07] MEDS: Folic Acid 1 MG TABLET PO SCH (08:17)
[2018-02-07] MEDS: Vitamin B Complex/Vit C/Vit E 1 EACH TABLET PO SCH (08:18)
[2018-02-07] MEDS: Cholecalciferol (D-3) 1,000 UNIT TABLET PO SCH (08:18)
[2018-02-07] MEDS: Aspirin Enteric Coated 81 MG Tablet PO SCH (08:18)
[2018-02-07] MEDS: Furosemide 20 MG TABLET PO SCH (08:19)
[2018-02-07] MEDS: *HR* GlipiZIDE 5 MG TABLET PO SCH ×2 (08:19→17:27)
[2018-02-07] MEDS: Diltiazem CD (24hr) 120 MG CAPSULE PO SCH ×2 (08:19→20:46)
[2018-02-07] MEDS: Nitroglycerin 0.2 MG PATCH.TD24 TD SCH (08:20)
[2018-02-07] MEDS: Nitroglycerin 0.1 MG PATCH.TD24 TD SCH (08:21)
[2018-02-07] MEDS: Albuterol 2.5 MG/3 ML NEBULIZER IH SCH ×4 (08:21→20:46)
[2018-02-07] MEDS: Loratadine 10 MG TABLET PO SCH (08:21)
[2018-02-07] MEDS: Tiotropium 18 MCG inhalation IH SCH (09:50)
[2018-02-07] MEDS: Budesonide Neb 0.25 MG/2 ML IH SCH ×2 (09:51→22:19)
--- NOTE | 2018-02-07 10:37 | Electrocardiograph Report ---
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
[2018-02-07] MEDS: Acetaminophen 325 MG TABLET PO PRN (15:21)
[2018-02-07] MEDS: cefTRIAXone 1,000 MG in 0.9 % Sodium Chloride Mini Bag 100 ML IVPB SCH (15:22)
[2018-02-07] MEDS: Azithromycin 500 MG in D5% in Water 250 ML IVPB SCH (16:01)
--- NOTE | 2018-02-07 17:10 | Internal Med Progress Note ---
Date of Encounter: 02/07/18 Time of Encounter: 16:33 - Assessment and plan (1) Pneumonia Current Visit: Yes Status: Acute Assessment and plan: Symptomatically she is markedly improved. She states she does not feel as bad as what her fever and chest x-ray would imply. I suspect the chest x-ray is lagging behind clinical improvement. Labs included blood cultures 2 and CBC and BMP have been ordered because of the fever spike. Exam is better. She feels better. We will continue current regimen. Qualifiers: Pneumonia type: due to unspecified organism Laterality: left Lung location: lower lobe of lung Qualified Code(s): J18.1 - Lobar pneumonia, unspecified organism (2) Anemia Current Visit: Yes Status: Chronic Assessment and plan: Chronic anemia without significant change. CBC is pending. Qualifiers: Anemia type: unspecified type Qualified Code(s): D64.9 - Anemia, unspecified (3) COPD (chronic obstructive pulmonary disease) Current Visit: Yes Status: Chronic Assessment and plan: Her COPD is stable at this point. She is oxygenating better and not requiring as much per nasal cannula. She feels better and better activity level with less dyspnea Qualifiers: COPD type: COPD with acute exacerbation Qualified Code(s): J44.1 - Chronic obstructive pulmonary disease with (acute) exacerbation (4) Chest pain Current Visit: Yes Status: Acute Assessment and plan: No cardiac type chest pain/angina in the past couple of days Qualifiers: Chest pain type: unspecified Qualified Code(s): R07.9 - Chest pain, unspecified (5) Hypokalemia Current Visit: Yes Status: Acute (6) Anticoagulated on Coumadin Current Visit: Yes Status: Chronic (7) Coronary artery disease Current Visit: Yes Status: Chronic Assessment and plan: No angina or CHF now. Qualifiers: Coronary Disease-Associated Artery/Lesion type: unspecified vessel or lesion type [place] vs. transplanted heart: [place] heart Associated angina: angina presence unspecified Qualified Code(s): I25.10 - Atherosclerotic heart disease of [place] coronary artery without angina pectoris (8) Diabetes mellitus Current Visit: No Status: Chronic Assessment and plan: Sugars have been under good control. Qualifiers: Diabetes mellitus type: type 2 Diabetes mellitus long-term insulin use: without long-term use Diabetes mellitus complication status: with unspecified complications Qualified Code(s): E11.8 - Type 2 diabetes mellitus with unspecified complications (9) Pacemaker Current Visit: No Status: Chronic (10) DVT prophylaxis Current Visit: Yes Status: Acute - Subjective Interval history: "I feel so much better today. I am not short of breath as much. No cough or sputum production. My left sided back pain is basically gone. I am now breathing better on the left side. I am eating better. I can do more activity without getting so short of breath. I did not know I was getting a fever. I do not feel bad." Patient however spiked temperature 101.2 this afternoon. Her chest x-ray done yesterday shows worsening of the infiltrate on the left side. - Constitutional Vitals: Temp Pulse Resp BP Pulse Ox 101.2 F H 85 16 129/63 94 02/07/18 15:17 02/07/18 15:17 02/07/18 15:17 02/07/18 15:17 02/07/18 15:17 General appearance: Present: A&O X 3, no acute distress, answers questions appropriately - Respiratory Additional comments: Very diminished breath sounds throughout, but increased breath sounds heard in the left base which was previously silent. Now is basically same as on the right. No respiratory distress - Cardiovascular Cardiovascular exam: Present: distant heart sounds, RRR, +S1, +S2 - GI/Abdominal GI/Abdominal exam: Present: soft. Absent: tenderness - Extremities Exam Extremities exam: Absent: calf tenderness, mottling, pedal edema, tenderness Internal Medicine: Result - Labs CBC & Chem 7: 02/06/18 04:23 02/06/18 04:23 Labs: Lab work ordered today is pending. Chest x-ray done yesterday shows worsening of the infiltrate on the left side. - ABG Interpretation ABG results: PT/INR, D-dimer PT 22.6 Seconds (9.4-12.1) H 02/06/18 04:23 - Diagnostic Studies Chest x-ray Additional comments: Infiltrate on the left lower lobe area has worsened compared to on admission. Consult Discharge Plan - Plan Referrals: Ashko Tadeo MD [Primary Care Provider] -
[2018-02-07] MEDS: *HR* Warfarin 5 MG TABLET PO SCH (17:27)
[2018-02-07 17:44] LABS: Basophils % 0.1 %; Eosinophils # 0.1 K/mcL (0.0-0.6); Eosinophils % 1.1 %; Hematocrit 27.6 % (35.3-44.9); Hemoglobin 8.2 g/dL (11.5-15.4); Immature Granulocytes % 0.7 % (0-4); Lymphocytes # 1.8 K/mcL (0.6-4.6); Lymphocytes % 17.1 %; Mean Corpuscular HGB Conc 29.7 g/dL (31.6-35.5); Mean Corpuscular Hemoglobin 22.6 pg (28.0-33.3); Mean Platelet Volume 10.2 fL (9.4-12.4); Monocytes # 0.8 K/mcL (0.0-1.3); Neutrophils # 7.5 K/mcL (1.6-8.9); Nucleated Red Blood Cells 0.4 /100 WBC (0); Platelet Count 300 K/mcL (140-400); Red Blood Count 3.63 M/mcL (3.82-4.97); Red Cell Distribution Width 18.1 % (11.5-14.5)
[2018-02-07 17:59] LABS: BUN/Creatinine Ratio 21 (6-26); Blood Urea Nitrogen 13 mg/dL (8-23); Calcium 8.4 mg/dL (8.6-10.3); Carbon Dioxide 33 mEq/L (23-29); Chloride 98 mEq/L (98-107); Glucose 130 mg/dL (70-105); Osmolality,Calculated 288 (280-300); Potassium 3.2 mEq/L (3.5-5.1); Sodium 138 mEq/L (136-145); eGFR For Non-African Americans > 60 (> 60)
[2018-02-08] MEDS: Albuterol 2.5 MG/3 ML NEBULIZER IH PRN (04:46)
[2018-02-08 04:59] LABS: Basophils % 0.2 %; Eosinophils # 0.1 K/mcL (0.0-0.6); Eosinophils % 1.5 %; Hematocrit 27.9 % (35.3-44.9); Immature Granulocytes % 0.5 % (0-4); Lymphocytes # 1.5 K/mcL (0.6-4.6); Lymphocytes % 15.7 %; Mean Corpuscular HGB Conc 28.7 g/dL (31.6-35.5); Mean Corpuscular Hemoglobin 22.3 pg (28.0-33.3); Mean Corpuscular Volume 77.9 fL (83.0-100.0); Mean Platelet Volume 9.8 fL (9.4-12.4); Monocytes # 0.9 K/mcL (0.0-1.3); Platelet Count 283 K/mcL (140-400); Red Blood Count 3.58 M/mcL (3.82-4.97); Segmented Neutrophils % 73.1 %
[2018-02-08 05:03] LABS: INR 1.4; Prothrombin Time 15.2 Seconds (9.4-12.1)
[2018-02-08 05:12] LABS: Anisocytosis 1+ (Not Present); Hypochromasia Present (Not Present)
[2018-02-08 05:13] LABS: Platelet Estimate Normal (Normal)
[2018-02-08 05:15] LABS: BUN/Creatinine Ratio 21 (6-26); Blood Urea Nitrogen 12 mg/dL (8-23); Calcium 8.4 mg/dL (8.6-10.3); Carbon Dioxide 35 mEq/L (23-29); Chloride 103 mEq/L (98-107); Glucose 98 mg/dL (70-105); Osmolality,Calculated 302 (280-300); Potassium 3.2 mEq/L (3.5-5.1); Sodium 146 mEq/L (136-145); eGFR For Non-African Americans > 60 (> 60)
[2018-02-08] MEDS: Isosorbide MONOnitrate (24 HR) 30 MG TAB.ER.24H PO SCH ×2 (07:53→20:09)
[2018-02-08] MEDS: *HR* GlipiZIDE 5 MG TABLET PO SCH ×2 (07:53→16:03)
[2018-02-08] MEDS: Cholecalciferol (D-3) 1,000 UNIT TABLET PO SCH (07:53)
[2018-02-08] MEDS: Diltiazem CD (24hr) 120 MG CAPSULE PO SCH ×2 (07:53→20:09)
[2018-02-08] MEDS: Aspirin Enteric Coated 81 MG Tablet PO SCH (07:53)
[2018-02-08] MEDS: Furosemide 20 MG TABLET PO SCH (07:54)
[2018-02-08] MEDS: Folic Acid 1 MG TABLET PO SCH (07:54)
[2018-02-08] MEDS: Vitamin B Complex/Vit C/Vit E 1 EACH TABLET PO SCH (07:54)
[2018-02-08] MEDS: Nitroglycerin 0.1 MG PATCH.TD24 TD SCH (07:54)
[2018-02-08] MEDS: Albuterol 2.5 MG/3 ML NEBULIZER IH SCH ×4 (07:55→20:08)
[2018-02-08] MEDS: Tiotropium 18 MCG inhalation IH SCH (07:55)
[2018-02-08] MEDS: Nitroglycerin 0.2 MG PATCH.TD24 TD SCH (07:55)
[2018-02-08] MEDS: Loratadine 10 MG TABLET PO SCH (07:55)
[2018-02-08] MEDS: Budesonide Neb 0.25 MG/2 ML IH SCH ×2 (09:24→21:48)
[2018-02-08] MEDS: Acetaminophen 325 MG TABLET PO PRN (10:19)
--- NOTE | 2018-02-08 13:04 | Internal Med Progress Note ---
Date of Encounter: 02/08/18 Time of Encounter: 13:02 - Assessment and plan (1) Pneumonia Current Visit: Yes Status: Acute Assessment and plan: Despite poor airflow the left lower lobe and her x-ray looking worse Friday, she feels much better, increase her activity level, no respiratory distress, getting back to her baseline ADLs, less sputum production, no fever today. She feels like she can go home soon. Follow-up chest x-ray tomorrow. Qualifiers: Pneumonia type: due to unspecified organism Laterality: left Lung location: lower lobe of lung Qualified Code(s): J18.1 - Lobar pneumonia, unspecified organism (2) Anemia Current Visit: Yes Status: Chronic Assessment and plan: Chronic anemia. Hemoglobin not particularly different than her baseline. No active bleeding noted. Continue to follow. Qualifiers: Anemia type: unspecified type Qualified Code(s): D64.9 - Anemia, unspecified (3) COPD (chronic obstructive pulmonary disease) Current Visit: Yes Status: Chronic Assessment and plan: She appears be at her baseline with oxygen requirements of 2 L. No respiratory distress. Sputum production improved. Able to increase her ADLs and ambulation. Qualifiers: COPD type: COPD with acute exacerbation Qualified Code(s): J44.1 - Chronic obstructive pulmonary disease with (acute) exacerbation (4) Chest pain Current Visit: Yes Status: Acute Assessment and plan: No cardiac type chest pain or CHF noted. Qualifiers: Chest pain type: unspecified Qualified Code(s): R07.9 - Chest pain, unspecified (5) Hypokalemia Current Visit: Yes Status: Acute Assessment and plan: Oral potassium started, then increase to twice a day. Extra dose given today. Follow-up tomorrow. (6) Anticoagulated on Coumadin Current Visit: Yes Status: Chronic Assessment and plan: INR was supratherapeutic, Coumadin was held, was restarted and now will bump it back up to 8 mg as INR subtherapeutic. (7) Coronary artery disease Current Visit: Yes Status: Chronic Qualifiers: Coronary Disease-Associated Artery/Lesion type: unspecified vessel or lesion type [place] vs. transplanted heart: [place] heart Associated angina: angina presence unspecified Qualified Code(s): I25.10 - Atherosclerotic heart disease of [place] coronary artery without angina pectoris (8) Diabetes mellitus Current Visit: No Status: Chronic Assessment and plan: Sugars under reasonable control. Overall control is excellent with a g lycohemoglobin normal at 5.4% in November. 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 No more fever spikes. She has had no exacerbation of her wheezing or coughing. Less cough and less sputum production. She feels like she is moving air better on the left side. No left- sided chest or rib pain now. She is able to ambulate in the hallway to the nurses station yesterday evening. She is getting up in a chair and less dyspneic now. Her oxygen requirements are at her baseline at 2 L now. - Constitutional Vitals: Temp Pulse Resp BP Pulse Ox 98.4 F 81 16 111/62 92 02/08/18 11:16 02/08/18 11:16 02/08/18 11:16 02/08/18 11:16 02/08/18 11:16 General appearance: Present: A&O X 3, no acute distress, answers questions appropriately - Respiratory Additional comments: She chronically has decreased breath sounds throughout, still has very poor air exchange in the left base. No tenderness in that area. No respiratory distress. She is sitting up in a chair. - Cardiovascular Cardiovascular exam: Present: distant heart sounds, RRR, +S1, +S2 - GI/Abdominal GI/Abdominal exam: Present: soft. Absent: tenderness - Extremities Exam Extremities exam: Absent: calf tenderness, pedal edema, tenderness Internal Medicine: Result - Labs CBC & Chem 7: 02/08/18 04:21 02/08/18 04:21 Labs: Short CBC 02/07/18 02/08/18 Range/Units 17:16 04:21 WBC 10.2 9.6 (4.3-11.1) K/mcL Hgb 8.2 L 8.0 L (11.5-15.4) g/dL Hct 27.6 L 27.9 L (35.3-44.9) % Plt Count 300 283 (140-400) K/mcL Neutrophils # 7.5 7.0 (1.6-8.9) K/mcL BMP 02/07/18 02/08/18 17:16 04:21 Sodium 138 146 H Potassium 3.2 L 3.2 L Chloride 98 103 Carbon Dioxide 33 H 35 H BUN 13 12 Creatinine 0.61 0.58 L Glucose 130 H 98 Calcium 8.4 L 8.4 L Potassium is still low despite increased to twice a day. Her potassium dose was given orally today. White blood cell count is normal. Hemoglobin chronically low and at baseline. Renal function is good. - ABG Interpretation ABG results: PT/INR, D-dimer PT 15.2 Seconds (9.4-12.1) H 02/08/18 04:21 Consult Discharge Plan - Plan Referrals: Ashok Tadeo MD [Primary Care Provider] -
[2018-02-08] MEDS: cefTRIAXone 1,000 MG in 0.9 % Sodium Chloride Mini Bag 100 ML IVPB SCH (16:03)
[2018-02-08] MEDS: Azithromycin 500 MG in D5% in Water 250 ML IVPB SCH (16:45)
[2018-02-08] MEDS ORDERED: *HR* Warfarin 4 MG TABLET PO SCH (18:00)
[2018-02-09 05:51] LABS: INR 1.4; Prothrombin Time 16.3 Seconds (9.4-12.1)
[2018-02-09 06:03] LABS: BUN/Creatinine Ratio 21 (6-26); Blood Urea Nitrogen 12 mg/dL (8-23); Carbon Dioxide 35 mEq/L (23-29); Chloride 105 mEq/L (98-107); Glucose 108 mg/dL (70-105); Osmolality,Calculated 298 (280-300); Potassium 3.4 mEq/L (3.5-5.1); Sodium 144 mEq/L (136-145); eGFR For Non-African Americans > 60 (> 60)
[2018-02-09] MEDS: Albuterol 2.5 MG/3 ML NEBULIZER IH PRN (06:24)
--- NOTE | 2018-02-09 07:59 | Internal Med Progress Note ---
Date of Encounter: 02/09/18 Time of Encounter: 07:58 - Assessment and plan (1) Pneumonia Current Visit: Yes Status: Acute Assessment and plan: Symptomatically she is markedly improved and feels like she can go home. She is ambulatory, had a shower and maintained her ADLs now. We will recheck her chest x-ray and recheck her hemoglobin this afternoon. Qualifiers: Pneumonia type: due to unspecified organism Laterality: left Lung location: lower lobe of lung Qualified Code(s): J18.1 - Lobar pneumonia, unspecified organism (2) Anemia Current Visit: Yes Status: Chronic Assessment and plan: Hemoglobin dropped to 7.5. No obvious bleeding. We will recheck this afternoon. Qualifiers: Anemia type: unspecified type Qualified Code(s): D64.9 - Anemia, unspecified (3) COPD (chronic obstructive pulmonary disease) Current Visit: Yes Status: Chronic Assessment and plan: COPD and oxygen dependent, at her usual oxygen dosing and maintaining saturations appropriate. Qualifiers: COPD type: COPD with acute exacerbation Qualified Code(s): J44.1 - Chronic obstructive pulmonary disease with (acute) exacerbation (4) Chest pain Current Visit: Yes Status: Acute Assessment and plan: No angina or CHF currently. Qualifiers: Chest pain type: unspecified Qualified Code(s): R07.9 - Chest pain, unspecified (5) Hypokalemia Current Visit: Yes Status: Acute Assessment and plan: Potassium is still not back to baseline. (6) Anticoagulated on Coumadin Current Visit: Yes Status: Chronic Assessment and plan: INR improving to 1.4. Her Coumadin had been held. We will continue her 8 mg dose which is her usual at home dose. (7) Coronary artery disease Current Visit: Yes Status: Chronic Assessment and plan: No angina. Qualifiers: Coronary Disease-Associated Artery/Lesion type: unspecified vessel or lesion type [place] vs. transplanted heart: [place] heart Associated angina: angina presence unspecified Qualified Code(s): I25.10 - Atherosclerotic heart disease of [place] coronary artery without angina pectoris (8) Diabetes mellitus Current Visit: No Status: Chronic Qualifiers: Diabetes mellitus type: type 2 Diabetes mellitus halfway insulin use: without halfway use Diabetes mellitus complication status: with unspecified complications Qualified Code(s): E11.8 - Type 2 diabetes mellitus with unspecified complications (9) Pacemaker Current Visit: No Status: Chronic (10) DVT prophylaxis Current Visit: Yes Status: Acute - Subjective Interval history: Patient states that she is feeling better. She would like to try to go home. She is ambulated and taken a shower. I told her we would reassess her this afternoon. She denies any cardiac type chest pain or angina. - Constitutional Vitals: Temp Pulse Resp BP Pulse Ox 98.4 F 94 16 148/74 91 02/09/18 05:30 02/09/18 05:30 02/09/18 05:30 02/09/18 05:30 02/09/18 05:30 General appearance: Present: A&O X 3, no acute distress, answers questions appropriately - Respiratory Additional comments: Decreased breath sounds in the left base. No orthopnea. No dyspnea. No wheezing. - Cardiovascular Cardiovascular exam: Present: distant heart sounds, RRR - Extremities Exam Extremities exam: Absent: calf tenderness, pedal edema, tenderness Internal Medicine: Result - Labs CBC & Chem 7: 02/09/18 14:45 02/09/18 05:35 Labs: Short CBC 02/09/18 Range/Units 05:35 Hgb 7.5 L (11.5-15.4) g/dL BMP 02/09/18 05:35 Sodium 144 Potassium 3.4 L Chloride 105 Carbon Dioxide 35 H BUN 12 Creatinine 0.57 L Glucose 108 H Calcium 8.0 L Potassium still not back to normal. Hemoglobin dipped to 7.5. We will recheck later today. Chest x-ray is pending - ABG Interpretation ABG results: PT/INR, D-dimer PT 16.3 Seconds (9.4-12.1) H 02/09/18 05:35 Consult Discharge Plan - Plan Referrals: Ashok Tadeo MD [Primary Care Provider] -
[2018-02-09] MEDS: Folic Acid 1 MG TABLET PO SCH (09:12)
[2018-02-09] MEDS: Isosorbide MONOnitrate (24 HR) 30 MG TAB.ER.24H PO SCH (09:12)
[2018-02-09] MEDS: Vitamin B Complex/Vit C/Vit E 1 EACH TABLET PO SCH (09:13)
[2018-02-09] MEDS: *HR* GlipiZIDE 5 MG TABLET PO SCH (09:13)
[2018-02-09] MEDS: Cholecalciferol (D-3) 1,000 UNIT TABLET PO SCH (09:13)
[2018-02-09] MEDS: Aspirin Enteric Coated 81 MG Tablet PO SCH (09:13)
[2018-02-09] MEDS: Diltiazem CD (24hr) 120 MG CAPSULE PO SCH (09:13)
[2018-02-09] MEDS: Nitroglycerin 0.1 MG PATCH.TD24 TD SCH (09:14)
[2018-02-09] MEDS: Albuterol 2.5 MG/3 ML NEBULIZER IH SCH ×2 (09:14→12:45)
[2018-02-09] MEDS: Furosemide 20 MG TABLET PO SCH (09:14)
[2018-02-09] MEDS: Nitroglycerin 0.2 MG PATCH.TD24 TD SCH (09:14)
[2018-02-09] MEDS: Budesonide Neb 0.25 MG/2 ML IH SCH (09:47)
[2018-02-09] MEDS: Tiotropium 18 MCG inhalation IH SCH (09:50)
[2018-02-09] MEDS: cefTRIAXone 1,000 MG in 0.9 % Sodium Chloride Mini Bag 100 ML IVPB SCH (15:01)
[2018-02-09 15:42] VITALS: BP 137/74
--- NOTE | 2018-02-09 15:42 | Discharge Summary ---
- NOTES TO OUTPATIENT PROVIDER Notes to Outpatient Provider: #1. Patient has persistent left pleural effusion despite treatment with antibiotics and symptomatically improvement. Will need a follow-up chest x-ray. #2. We will complete 5 more days of antibiotic/Keflex 5 mg 4 times a day. #3. Potassium was started during this hospital stay and will need to be repeated. #4. INR was supratherapeutic, then low. 1.4 at discharge and using 8 mg Coumadin. She does her own at home and will be repeated on Friday. Date of Encounter: 02/09/18 Time of Encounter: 15:36 - Discharge Diagnosis (1) Pneumonia Priority: Primary Status: Acute Comments: Left lower lobe pneumonia with related pleural effusion. She had failed outpatient treatment and was admitted and placed on Rocephin and Zithromax. Her dyspnea, the left low chest pain and hypoxia resolved. She chronically uses oxygen is now back to her baseline of 2 L. Her chest x-ray continued to show persistent left pleural effusion, but patient states she feels much better, feels like she can get a good breath now, is ambulatory in the hallway, has taken a shower and she would like to go home. White blood cell count is normal. Oxygenation at 2 L is good. She will be discharged on Keflex 100 mg 4 times a day for 5 more days. She has finished 6 days of IV Zithromax. If her pleural effusion persists then we will arrange a CT scan and referral. Qualifiers: Pneumonia type: due to unspecified organism Laterality: left Lung location: lower lobe of lung Qualified Code(s): J18.1 - Lobar pneumonia, unspecified organism (2) Anemia Priority: Secondary Status: Chronic Comments: Patient has history chronic anemia with hemoglobin in the 8 range. Before discharge and dipped to 7.5 temporarily and is now back to 8.5. No active bleeding site noted. No GI symptoms. Will monitor. Qualifiers: Anemia type: unspecified type Qualified Code(s): D64.9 - Anemia, unspecified (3) COPD (chronic obstructive pulmonary disease) Priority: Secondary Status: Chronic Comments: Chronic oxygen dependent COPD. She thinks her breathing is back to normal/baseline. She continues with her nebulizer treatments, inhalers and her oxygen at 2 L. She has been able to her up and down the hallways and is taking a shower. She is been up and more active here than she likely will be at home. She will be discharged to home. Qualifiers: COPD type: COPD with acute exacerbation Qualified Code(s): J44.1 - Chronic obstructive pulmonary disease with (acute) exacerbation (4) Chest pain Priority: Secondary Status: Acute Comments: She had a couple episodes of anginal type chest pain earlier in the hospital course and was given nitroglycerin with quick relief. No changes were made in her cardiac medications. She has been asymptomatic in that regard for the past few days. Qualifiers: Chest pain type: unspecified Qualified Code(s): R07.9 - Chest pain, unspecified (5) Hypokalemia Priority: Secondary Status: Acute Comments: Patient developed hypokalemia and potassium supplement was started. Follow-up potassium will be done. Currently at 3.4 (6) Anticoagulated on Coumadin Priority: Secondary Status: Chronic Comments: She is anticoagulated with Coumadin because of atrial fibrillation/pacemaker. Her INR was elevated upon admission, Coumadin was held and then restarted at a lower dose. She is now back up to 8 mg which is her usual baseline and her INR is 1.4. She will repeat the INR on Friday. No signs of active bleeding or competition noted. (7) Coronary artery disease Priority: Secondary Status: Chronic Comments: Known history coronary artery disease and stents in the past. She has had a few anginal episodes in the early part of her hospitalization. No angina recently. No changes were made in her cardiac medications. Qualifiers: Coronary Disease-Associated Artery/Lesion type: unspecified vessel or lesion type [place] vs. transplanted heart: [place] heart Associated angina: angina presence unspecified Qualified Code(s): I25.10 - Atherosclerotic heart disease of [place] coronary artery without angina pectoris (8) Diabetes mellitus Priority: Secondary Status: Chronic Comments: Blood sugars have been stable. Qualifiers: Diabetes mellitus type: type 2 Diabetes mellitus long term care administrator insulin use: without long term care administrator use Diabetes mellitus complication status: with unspecified complications Qualified Code(s): E11.8 - Type 2 diabetes mellitus with unspecified complications (9) Pacemaker Priority: Secondary Status: Chronic (10) DVT prophylaxis Priority: Secondary Status: Resolved Hospital course: Ms. De La Cruz is a 82 year old female with oxygen dependent COPD and CAD was admitted with left lower lobe pneumonia. Please see the diagnoses above. She was discharged much improved condition and will be read checked in the office on . Discharge discussed with: patient - Time Spent with Patient Total time spent providing and/or coordinating discharge services: - Discharge Medications Prescriptions: Cephalexin [Keflex] 500 mg PO QID #20 capsule Potassium Chloride 10 meq PO BIDWM #60 tab.er.prt Home Medications: Albuterol Sulfate [Albuterol Inhaler] 2 puff IH Q4H PRN 10/05/14 [History] Alendronate Sodium 70 mg PO QWEEK 10/05/14 [History] Atorvastatin [Lipitor] 80 mg PO HS 10/05/14 [History] Calcium Carbonate/Vitamin D3 [Calcium 250+D Tablet] 1 each PO BID 10/05/14 [History] Clopidogrel [Plavix] 75 mg PO DAILY 10/05/14 [History] Ezetimibe [Zetia] 10 mg PO HS 10/05/14 [History] Formoterol Fumarate [Perforomist] 20 mcg IH BID 10/05/14 [History] Furosemide [Lasix] 20 mg PO DAILY 10/05/14 [History] GlipiZIDE [Glucotrol] 5 mg PO BIDWM 10/05/14 [History] Nitroglycerin 0.2 mg TD DAILY 10/05/14 [History] Sotalol HCl [Betapace] 120 mg PO BID 10/05/14 [History] Warfarin [Coumadin] 8 mg PO DAILY 12/31/14 [History] Cholecalciferol (D-3) [Vitamin D] 1,000 unit PO DAILY 03/05/16 [History] Diltiazem CD (24hr) [Cardizem CD] 120 mg PO BID 03/05/16 [History] Isosorbide MONOnitrate (24 HR) [Imdur] 90 mg PO BID 03/05/16 [History] Esomeprazole Magnesium [Nexium] 40 mg PO DAILY 04/08/16 [History] Fish Oil/Dha/Epa [Fish Oil 1,200 mg Fish Oil] 2 each PO DAILY 04/08/16 [History] Tiotropium [Spiriva] 18 mcg IH DAILY 07/01/17 [History] Aspirin [Lo-Dose Aspirin EC] 81 mg PO DAILY 11/25/17 [History] Cyanocobalamin/Folic AC/Vit B6 [Folbic Tablet] 1 each PO DAILY 11/25/17 [History] Loratadine [Claritin] 10 mg PO DAILY 11/25/17 [History] Budesonide Neb [Pulmicort Neb] 0.25 mg IH BIDR 02/04/18 [History] Nitroglycerin 0.1 mg TD DAILY 02/04/18 [History] Acetaminophen [Tylenol] 650 mg PO Q6HR PRN tablet 02/09/18 [Rx] Cephalexin [Keflex] 500 mg PO QID #20 capsule 02/09/18 [Rx] Potassium Chloride 10 meq PO BIDWM #60 tab.er.prt 02/09/18 [Rx] Allergies/Adverse Reactions: Allergy/AdvReac Type Severity Reaction Status Date / Time bacitracin Allergy Blister Verified 07/01/17 05:53 [From Neosporin ([id number])] cetirizine Allergy Confusion Verified 07/01/17 05:53 ciprofloxacin Allergy Difficulty Verified 07/01/17 05:53 Breathing codeine Allergy Drowsy Verified 07/01/17 05:53 diazepam [From Valium] Allergy See Verified 07/01/17 05:53 Comments miconazole Allergy Blister Verified 07/01/17 05:53 [From Neosporin AF] Neomycin Allergy Blister Verified 07/01/17 05:53 Penicillins Allergy See Verified 07/01/17 05:53 Comments polymyxin B Allergy Blister Verified 07/01/17 05:53 promethazine [From Phenergan] Allergy See Verified 07/01/17 05:53 Comments ranolazine [From Ranexa] Allergy See Verified 01/28/18 17:06 Comments Sulfa (Sulfonamide Allergy Confusion Verified 07/01/17 05:53 Antibiotics) Date of admission: 02/04/18 10:58 Primary care physician: Ashok Tadeo MD Discharging clinician: Ashok Tadeo Anticipated date of discharge: 02/09/18 - Constitutional Vitals: Temp Pulse Resp BP Pulse Ox 98.2 F 80 19 137/74 90 02/09/18 12:15 02/09/18 12:15 02/09/18 12:49 02/09/18 12:15 02/09/18 12:49 General appearance: Present: A&O X 3, no acute distress, answers questions appropriately - Respiratory Additional comments: Decreased breast sounds at left base. No orthopnea. No PND. No wheezing. - Cardiovascular Cardiovascular exam: Present: distant heart sounds, RRR, +S1, +S2 - Extremities Exam Extremities exam: Absent: calf tenderness, pedal edema, tenderness - Patient Status Disposition: Home, Self-Care Condition: Good Functional capacity at discharge: uses cane/walker Overall status at discharge: patient is progressing back to baseline - Discharge Instructions Follow Up With: Ashok Tadeo MD [Primary Care Provider] - 02/12/18 11:30 am - Diet and Activity Activity: increase activity as tolerated Diet: low fat, low cholesterol, low salt diet
[2018-02-09] MEDS ORDERED: Azithromycin 500 MG in D5% in Water 250 ML IVPB ONE (16:00)
[2018-02-09] MEDS ORDERED: Azithromycin 250 MG TABLET PO SCH (16:00)
[2018-02-10] MEDS ORDERED: Azithromycin 250 MG TABLET PO SCH (16:00)
== END 2018-02-09 16:50 | disposition home or self-care (01) | DRG 194 ==
LOC: EMEROOGRE 08:54 → INPGRE 08:54
PROVIDERS: ADMIT Family Medicine; ATTEND Family Medicine

== ENCOUNTER 2018-02-25 22:26 | Observation (INO) ==
--- NOTE | 2018-02-25 22:46 | Emergency Department Note ---
Disposition Clinical Impression: Acute exacerbation of chronic obstructive airways disease Disposition: Admitted As Inpatient Condition: Good Referrals: Ashok Tadeo MD [Primary Care Provider] - Forms: ED Satisfaction Letter Time of Disposition: 08:40 SOB HPI - General Chief Complaint: ED Shortness of Breath/Dyspnea Stated Complaint: sob Time Seen by Provider: 02/25/18 22:31 Source: patient, family, EMS Mode of arrival: EMS Limitations: no limitations Nursing Notes Reviewed: Yes Vital Signs Reviewed: Yes - History of Present Illness 82-year-old female presents from home via EMS with complaints of acute shortness of breath. Patient has had a prolonged hospital stay this past month for recurrent pneumonia. Patient was hospitalized here and then rehospitalized at [place]. Patient was discharged today at 5 PM. Patient reports he had an episode when she got to the bathroom that she became acutely short of breath with chest pain. Patient reports she is feeling better at this time. Patient per she had a similar episode yesterday in the hospital where her oxygen level dropped. In reviewing the patient's discharge summary. Patient had a CTA yesterday of the chest which was negative. Patient has a significant coronary history with frequent angina. Patient has had an echo and stress test in the past year which have been stable. 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 Denies: fever, nausea/vomiting Treatment prior to arrival: oxygen, bronchodilator Cough present: Yes Cough Description: Voluntary Cough Frequency: Intermittent Sputum production: Yes Sputum Amount: Small Sputum Color: White - Related Data Home oxygen amount: 3 liters Home Medications Medication Instructions Recorded Confirmed Albuterol Sulfate [Albuterol 2 puff IH Q4H PRN 10/05/14 02/25/18 Inhaler] Alendronate Sodium 70 mg PO QWEEK 10/05/14 02/25/18 Atorvastatin [Lipitor] 80 mg PO HS 10/05/14 02/25/18 Calcium Carbonate/Vitamin D3 1 each PO BID 10/05/14 02/25/18 [Calcium 250+D Tablet] Clopidogrel [Plavix] 75 mg PO DAILY 10/05/14 02/25/18 Ezetimibe [Zetia] 10 mg PO HS 10/05/14 02/25/18 Formoterol Fumarate [Perforomist] 20 mcg IH BID 10/05/14 02/25/18 Furosemide [Lasix] 20 mg PO DAILY 10/05/14 02/25/18 GlipiZIDE [Glucotrol] 5 mg PO BIDWM 10/05/14 02/25/18 Nitroglycerin 0.2 mg TD DAILY 10/05/14 02/25/18 Sotalol HCl [Betapace] 120 mg PO BID 10/05/14 02/25/18 Warfarin [Coumadin] 8 mg PO DAILY 12/31/14 02/25/18 Cholecalciferol (D-3) [Vitamin D] 1,000 unit PO DAILY 03/05/16 02/25/18 Diltiazem CD (24hr) [Cardizem CD] 120 mg PO BID 03/05/16 02/25/18 Isosorbide MONOnitrate (24 HR) 60 mg PO BID 03/05/16 02/25/18 [Imdur] Esomeprazole Magnesium [Nexium] 40 mg PO DAILY 04/08/16 02/25/18 Fish Oil/Dha/Epa [Fish Oil 1,200 2 each PO DAILY 04/08/16 02/25/18 mg Fish Oil] Tiotropium [Spiriva] 18 mcg IH DAILY 07/01/17 02/25/18 Aspirin [Lo-Dose Aspirin EC] 81 mg PO DAILY 11/25/17 02/25/18 Cyanocobalamin/Folic AC/Vit B6 1 each PO DAILY 11/25/17 02/25/18 [Folbic Tablet] Budesonide Neb [Pulmicort Neb] 0.25 mg IH BIDR 02/04/18 02/25/18 Nitroglycerin 0.1 mg TD DAILY 02/04/18 02/25/18 Latanoprost [Xalatan] 1 drop OP HS 02/21/18 02/25/18 Previous Rx's Medication Instructions Recorded Acetaminophen [Tylenol] 650 mg PO Q6HR PRN tablet 02/09/18 Potassium Chloride 10 meq PO BIDWM #60 tab.er.prt 02/09/18 predniSONE [PredniSONE] See Taper PO DAILY 7 Days #9 tablet 02/25/18 Allergies Allergy/AdvReac Type Severity Reaction Status Date / Time bacitracin Allergy Blister Verified 02/25/18 22:28 [From Neosporin ([id number])] cetirizine Allergy Confusion Verified 02/25/18 22:28 ciprofloxacin Allergy Difficulty Verified 02/25/18 22:28 Breathing codeine Allergy Drowsy Verified 02/25/18 22:28 diazepam [From Valium] Allergy See Verified 02/25/18 22:28 Comments miconazole Allergy Blister Verified 02/25/18 22:28 [From Neosporin AF] Neomycin Allergy Blister Verified 02/25/18 22:28 Penicillins Allergy See Verified 02/25/18 22:28 Comments polymyxin B Allergy Blister Verified 02/25/18 22:28 promethazine [From Phenergan] Allergy See Verified 02/25/18 22:28 Comments ranolazine [From Ranexa] Allergy See Verified 01/28/18 17:06 Comments Sulfa (Sulfonamide Allergy Confusion Verified 07/01/17 05:53 Antibiotics) All systems ED: reviewed and negative except as stated. Review of Systems: As Per HPI Constitutional: Reports: weakness. Denies: fever, chills Cardiovascular: Reports: chest pain, dyspnea on exertion. Denies: palpitations Respiratory: Reports: cough, dyspnea Gastrointestinal: Denies: abdominal pain, nausea, vomiting Integumentary: Denies: rash Neurological: Denies: headache Endocrine: Reports: fatigue Hematological/Lymphatic: Reports: easy bruising Past Medical History - Past Medical History Attestation: Yes The following information was validated with the patient. 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 Absent: conjunctival injection - ENT ENT exam: normal oropharynx, mucous membranes moist, TM's normal bilaterally - Neck Neck exam: Present: normal inspection, full ROM. Absent: thyromegaly - Expanded Neck Exam Neck exam focused ED: Absent: JVD, carotid bruit - Chest Chest inspection: Present: normal inspection, symmetric chest wall rise - Respiratory Respiratory exam: Absent: respiratory distress, wheezes - Expanded Respiratory Exam Location: decreased breath sounds: Left, Right, Lower - Cardiovascular Cardiovascular exam: Present: regular rate, normal rhythm, normal heart sounds - Abdominal Exam Abdominal exam: Present: soft, Non-Tender, normal bowel sounds. Absent: organomegaly - Extremities Exam Extremities exam: Present: normal inspection, full ROM. Absent: pedal edema - Neurological Exam Neurological exam: Present: alert, oriented X3 - Psychiatric Psychiatric exam: Present: normal affect - Skin Skin exam: Present: warm, dry, intact, normal color Course - Reevaluation(s) Reevaluation #1: Patient's repeat cardiac enzymes are negative. Patient's O2 sats had been maintained at [id number]%. Patient is resting comfortably. Discussed with patient and possibility of rehab to get patient stronger. They are agreeable to this. We will wait to morning to have social work evaluate the patient's history and insurance to see if this is a viable option. Time: 02:33 Reevaluation #2: Had case assembler evaluate patient for possible rehabilitation. Impression patient has not been evaluated by physical therapy to become a candidate for rupali abilitation. We will speak with Dr. Tadeo about possible overnight admission for physical therapy evaluation and further management of persistent dyspnea. Time: 08:17 Vital Signs Temperature 98.8 F 02/25/18 22:36 Pulse Rate 78 02/25/18 22:36 Respiratory Rate 18 02/25/18 22:36 Blood Pressure 135/84 02/25/18 22:36 O2 Sat by Pulse Oximetry 86 02/25/18 22:36 Temperature 98.8 F 02/25/18 22:36 Pulse Rate 74 02/26/18 05:07 Respiratory Rate 18 02/26/18 05:07 Blood Pressure 150/56 02/26/18 05:07 O2 Sat by Pulse Oximetry 95 02/26/18 05:07 Oxygen Delivery Oxygen Delivery Nasal Cannula Shortness of Breath/Dyspnea - Differential Diagnosis Likely: acute exacerbation of chronic obstructive airways disease - Medical Records Medical records reviewed: Yes I reviewed the patient's medical records. - Lab Data Lab results reviewed: Yes I reviewed the patient's lab results. Lab results narrative: Patient's labs shows stable anemia she improved from hospital visit. Patient's cardiac labs are negative 2. Presents discussed with patient and . Result diagrams: 02/25/18 23:10 02/25/18 23:10 Lab Results 02/25/18 02/25/18 02/25/18 Range/Units 23:10 23:10 23:10 WBC 13.2 H (4.3-11.1) K/mcL RBC 4.38 (3.82-4.97) M/mcL Hgb 9.4 L D (11.5-15.4) g/dL Hct 32.4 L (35.3-44.9) % MCV 74.0 L (83.0-100.0) fL MCH 21.5 L (28.0-33.3) pg MCHC 29.0 L (31.6-35.5) g/dL RDW 18.2 H (11.5-14.5) % Plt Count 446 H (140-400) K/mcL MPV 10.5 (9.4-12.4) fL Immature Gran % 0.8 (0-4) % Seg Neutrophils % 68.5 % Lymphocytes % 21.6 % Monocytes % 8.7 % Eosinophils % 0.2 % Basophils % 0.2 % Neutrophils # 9.0 H (1.6-8.9) K/mcL Lymphocytes # 2.9 (0.6-4.6) K/mcL Monocytes # 1.2 (0.0-1.3) K/mcL Eosinophils # 0.0 (0.0-0.6) K/mcL Basophils # 0.0 (0.0-0.2) K/mcL Nucleated RBCs/100 WBC 0.4 H (0) /100 WBC PT 27.6 H (9.4-12.1) Seconds INR 2.4 APTT 24.8 L D (26.0-36.0) Seconds ABG pH (7.32-7.45) pH Units ABG pCO2 (35-45) mmHg ABG pO2 (85-104) mmHg ABG HCO3 (21-27) mEq/L ABG Total CO2 (20-26) mEq/L ABG O2 Saturation (95-98) % ABG Base Excess (-2 to 3) mEq/L Sodium 140 (136-145) mEq/L Potassium 4.0 (3.5-5.1) mEq/L Chloride 101 (98-107) mEq/L Carbon Dioxide 31 H (23-29) mEq/L BUN 24 H (8-23) mg/dL Creatinine 0.70 (0.60-1.20) mg/dL Est GFR ( Amer) > 60 (> 60) Est GFR (Non-Af Amer) > 60 (> 60) BUN/Creatinine Ratio 34 H (6-26) Glucose 169 H (70-105) mg/dL Calculated Osmolality 298 (280-300) Lactic Acid (0.5-2.2) mmol/L Calcium 9.5 (8.6-10.3) mg/dL Total Bilirubin 0.4 (0.3-1.0) mg/dL AST 28 (13-39) Units/L ALT 49 (7-52) Units/L Alkaline Phosphatase 66 (34-104) Units/L Creatine Kinase 41 (30-223) Units/L Troponin I < 0.03 (< 0.04) ng/mL B-Natriuretic Peptide (Less than 100) pg/mL Serum Total Protein 6.8 (6.4-8.9) g/dL Albumin 4.1 (3.5-5.7) g/dL Globulin 2.7 (2.4-3.5) g/dL Albumin/Globulin Ratio 1.5 (1.1-2.2) 02/25/18 02/25/18 02/25/18 Range/Units 23:10 23:10 23:31 WBC (4.3-11.1) K/mcL RBC (3.82-4.97) M/mcL Hgb (11.5-15.4) g/dL Hct (35.3-44.9) % MCV (83.0-100.0) fL MCH (28.0-33.3) pg MCHC (31.6-35.5) g/dL RDW (11.5-14.5) % Plt Count (140-400) K/mcL MPV (9.4-12.4) fL Immature Gran % (0-4) % Seg Neutrophils % % Lymphocytes % % Monocytes % % Eosinophils % % Basophils % % Neutrophils # (1.6-8.9) K/mcL Lymphocytes # (0.6-4.6) K/mcL Monocytes # (0.0-1.3) K/mcL Eosinophils # (0.0-0.6) K/mcL Basophils # (0.0-0.2) K/mcL Nucleated RBCs/100 WBC (0) /100 WBC PT (9.4-12.1) Seconds INR APTT (26.0-36.0) Seconds ABG pH 7.45 (7.32-7.45) pH Units ABG pCO2 46 H (35-45) mmHg ABG pO2 53 L (85-104) mmHg ABG HCO3 32 H (21-27) mEq/L ABG Total CO2 34 H (20-26) mEq/L ABG O2 Saturation 88 L (95-98) % ABG Base Excess 7 H (-2 to 3) mEq/L Sodium (136-145) mEq/L Potassium (3.5-5.1) mEq/L Chloride (98-107) mEq/L Carbon Dioxide (23-29) mEq/L BUN (8-23) mg/dL Creatinine (0.60-1.20) mg/dL Est GFR ( Amer) (> 60) Est GFR (Non-Af Amer) (> 60) BUN/Creatinine Ratio (6-26) Glucose (70-105) mg/dL Calculated Osmolality (280-300) Lactic Acid 1.5 (0.5-2.2) mmol/L Calcium (8.6-10.3) mg/dL Total Bilirubin (0.3-1.0) mg/dL AST (13-39) Units/L ALT (7-52) Units/L Alkaline Phosphatase (34-104) Units/L Creatine Kinase (30-223) Units/L Troponin I (< 0.04) ng/mL B-Natriuretic Peptide 133 H (Less than 100) pg/mL Serum Total Protein (6.4-8.9) g/dL Albumin (3.5-5.7) g/dL Globulin (2.4-3.5) g/dL Albumin/Globulin Ratio (1.1-2.2) 02/26/18 Range/Units 02:08 WBC (4.3-11.1) K/mcL RBC (3.82-4.97) M/mcL Hgb (11.5-15.4) g/dL Hct (35.3-44.9) % MCV (83.0-100.0) fL MCH (28.0-33.3) pg MCHC (31.6-35.5) g/dL RDW (11.5-14.5) % Plt Count (140-400) K/mcL MPV (9.4-12.4) fL Immature Gran % (0-4) % Seg Neutrophils % % Lymphocytes % % Monocytes % % Eosinophils % % Basophils % % Neutrophils # (1.6-8.9) K/mcL Lymphocytes # (0.6-4.6) K/mcL Monocytes # (0.0-1.3) K/mcL Eosinophils # (0.0-0.6) K/mcL Basophils # (0.0-0.2) K/mcL Nucleated RBCs/100 WBC (0) /100 WBC PT (9.4-12.1) Seconds INR APTT (26.0-36.0) Seconds ABG pH (7.32-7.45) pH Units ABG pCO2 (35-45) mmHg ABG pO2 (85-104) mmHg ABG HCO3 (21-27) mEq/L ABG Total CO2 (20-26) mEq/L ABG O2 Saturation (95-98) % ABG Base Excess (-2 to 3) mEq/L Sodium (136-145) mEq/L Potassium (3.5-5.1) mEq/L Chloride (98-107) mEq/L Carbon Dioxide (23-29) mEq/L BUN (8-23) mg/dL Creatinine (0.60-1.20) mg/dL Est GFR ( Amer) (> 60) Est GFR (Non-Af Amer) (> 60) BUN/Creatinine Ratio (6-26) Glucose (70-105) mg/dL Calculated Osmolality (280-300) Lactic Acid (0.5-2.2) mmol/L Calcium (8.6-10.3) mg/dL Total Bilirubin (0.3-1.0) mg/dL AST (13-39) Units/L ALT (7-52) Units/L Alkaline Phosphatase (34-104) Units/L Creatine Kinase 31 (30-223) Units/L Troponin I < 0.03 (< 0.04) ng/mL B-Natriuretic Peptide (Less than 100) pg/mL Serum Total Protein (6.4-8.9) g/dL Albumin (3.5-5.7) g/dL Globulin (2.4-3.5) g/dL Albumin/Globulin Ratio (1.1-2.2) - Radiology Data Radiology results reviewed: Yes I reviewed the patient's radiology results. Patient's chest x-ray was interpreted by the radiologist to be peppy as positive for persistent right basilar atelectasis. Results discussed with patient. - EKG Data EKG attestation: Yes I reviewed and interpreted this EKG. EKG shows normal: Reports: sinus rhythm Rate: Reports: normal Rhythm: Reports: other (paced rhythm) When compared to previous EKG there are: no significant changes Interpretation: Reports: other (paced rhythm)
[2018-02-25 23:29] LABS: Basophils % 0.2 %; Eosinophils % 0.2 %; Hematocrit 32.4 % (35.3-44.9); Hemoglobin 9.4 g/dL (11.5-15.4); Immature Granulocytes % 0.8 % (0-4); Lymphocytes # 2.9 K/mcL (0.6-4.6); Lymphocytes % 21.6 %; Mean Corpuscular Hemoglobin 21.5 pg (28.0-33.3); Mean Platelet Volume 10.5 fL (9.4-12.4); Monocytes # 1.2 K/mcL (0.0-1.3); Monocytes % 8.7 %; Nucleated Red Blood Cells 0.4 /100 WBC (0); Platelet Count 446 K/mcL (140-400); Red Blood Count 4.38 M/mcL (3.82-4.97); Red Cell Distribution Width 18.2 % (11.5-14.5); Segmented Neutrophils % 68.5 %
[2018-02-25 23:36] LABS: ABG Base Excess 7 mEq/L (-2 to 3); ABG HCO3 32 mEq/L (21-27); ABG Oxygen Saturation 88 % (95-98); ABG PCO2 46 mmHg (35-45); ABG PH 7.45 pH Units (7.32-7.45); ABG PO2 53 mmHg (85-104); ABG TCO2 34 mEq/L (20-26)
[2018-02-25 23:36] LABS: INR 2.4; Prothrombin Time 27.6 Seconds (9.4-12.1)
[2018-02-25 23:39] LABS: Activated Partial Thrombo Time 24.8 Seconds (26.0-36.0)
[2018-02-25 23:47] LABS: Alanine Aminotransferase 49 Units/L (7-52); Albumin 4.1 g/dL (3.5-5.7); Albumin/Globulin Ratio 1.5 (1.1-2.2); Alkaline Phosphatase 66 Units/L (34-104); Aspartate Amino Transferase 28 Units/L (13-39); BUN/Creatinine Ratio 34 (6-26); Bilirubin,Total 0.4 mg/dL (0.3-1.0); Blood Urea Nitrogen 24 mg/dL (8-23); Calcium 9.5 mg/dL (8.6-10.3); Carbon Dioxide 31 mEq/L (23-29); Chloride 101 mEq/L (98-107); Creatine Kinase 41 Units/L (30-223); Globulin 2.7 g/dL (2.4-3.5); Glucose 169 mg/dL (70-105); Osmolality,Calculated 298 (280-300); Sodium 140 mEq/L (136-145); Total Protein 6.8 g/dL (6.4-8.9); eGFR For Non-African Americans > 60 (> 60)
[2018-02-25 23:48] LABS: Troponin I < 0.03 ng/mL (< 0.04)
[2018-02-26 02:27] LABS: Creatine Kinase 31 Units/L (30-223); Troponin I < 0.03 ng/mL (< 0.04)
[2018-02-26] MEDS ORDERED: Furosemide 40 MG TABLET PO ONE (08:23)
[2018-02-26] MEDS ORDERED: *HR* GlipiZIDE 5 MG TABLET PO STA (08:23)
[2018-02-26] MEDS ORDERED: Isosorbide MONOnitrate (24 HR) 60 MG TAB.ER.24H PO STA ×2 (08:41→08:46)
[2018-02-26] MEDS ORDERED: Isosorbide MONOnitrate (24 HR) 30 MG TAB.ER.24H PO STA (08:50)
[2018-02-26] MEDS ORDERED: Isosorbide MONOnitrate (24 HR) 60 MG TAB.ER.24H PO SCH (09:00)
[2018-02-26] MEDS ORDERED: CYANOCOBALAMIN PO SCH (09:10)
[2018-02-26] MEDS ORDERED: Tiotropium 18 MCG inhalation IH SCH (09:10)
[2018-02-26] MEDS ORDERED: DHA PO SCH (09:10)
[2018-02-26] MEDS ORDERED: VIT B6 PO SCH (09:10)
[2018-02-26] MEDS ORDERED: Naloxone 0.4 MG/ML INJ IVP PRN (09:10)
[2018-02-26] MEDS ORDERED: FISH OIL PO SCH (09:10)
[2018-02-26] MEDS ORDERED: NON-FORMULARY MEDICATION 1 EACH EACH (Sotalol Hcl [Betapace] 120 MG) PO SCH (09:10)
[2018-02-26] MEDS ORDERED: FOLIC AC PO SCH (09:10)
[2018-02-26] MEDS ORDERED: EPA PO SCH (09:10)
[2018-02-26] MEDS ORDERED: Diltiazem CD (24hr) 120 MG CAPSULE PO SCH (09:10)
[2018-02-26] MEDS ORDERED: *HR* Warfarin 5 MG TABLET PO SCH (09:10)
[2018-02-26] MEDS ORDERED: Isosorbide MONOnitrate (24 HR) 30 MG TAB.ER.24H PO SCH (09:10)
[2018-02-26] MEDS ORDERED: Cholecalciferol (D-3) 1,000 UNIT TABLET PO SCH (09:10)
[2018-02-26] MEDS ORDERED: NON-FORMULARY MEDICATION 1 EACH EACH (Formoterol Fumarate [Perforomist] 20 MCG) IH SCH (09:10)
[2018-02-26] MEDS ORDERED: Nitroglycerin 0.1 MG PATCH.TD24 TD SCH (09:10)
[2018-02-26] MEDS ORDERED: Nitroglycerin 0.3 MG PATCH.TD24 TD SCH (09:10)
[2018-02-26] MEDS ORDERED: NON-FORMULARY MEDICATION 1 EACH EACH (Alendronate Sodium [Alendronate Sodium] 70 MG) PO SCH (09:10)
[2018-02-26] MEDS ORDERED: [UNRECOGNIZED DRUG - OTHER] PO SCH (09:10)
[2018-02-26] MEDS ORDERED: Acetaminophen 325 MG TABLET PO PRN (09:10)
[2018-02-26] MEDS ORDERED: NON-FORMULARY MEDICATION 1 EACH EACH (Esomeprazole Magnesium [Nexium] 40 MG) PO SCH (09:10)
[2018-02-26] MEDS ORDERED: Aspirin Enteric Coated 81 MG Tablet PO SCH (09:10)
[2018-02-26] MEDS ORDERED: [UNRECOGNIZED DRUG - OTHER] PO SCH (09:10)
[2018-02-26] MEDS ORDERED: predniSONE 20 MG TABLET PO SCH (09:10)
[2018-02-26] MEDS ORDERED: Furosemide 20 MG TABLET PO SCH (09:10)
[2018-02-26 10:00] VITALS: BP 151/79
[2018-02-26] MEDS ORDERED: Budesonide Neb 0.25 MG/2 ML IH SCH (10:00)
[2018-02-26] MEDS ORDERED: *HR* GlipiZIDE 5 MG TABLET PO SCH (17:00)
[2018-02-26] MEDS ORDERED: Latanoprost 2.5 ML BOTTLE RIGHT EYE SCH (21:00)
[2018-02-26] MEDS ORDERED: NON-FORMULARY MEDICATION 1 EACH EACH (Ezetimibe [Zetia] 10 MG) PO SCH (21:00)
--- NOTE | 2018-02-26 21:51 | Electrocardiograph Report ---
[address] [place] [address] Test Date: 2018-02-25 Pat Name: Diamante De La Cruz Department: 2000 Room: 114 Gender: F [employer] Molder: : 1935 Requested By: Heena Abreu Order Number: [id number] Reading MD: Stanford Manuel Measurements Intervals [place] Rate: 82 P: 73 NH: 70 QRS: -74 QRSD: 132 T: 61 QT: 425 QTc: 464 Interpretive Statements ELECTRONIC VENTRICULAR PACEMAKER Electronically Signed On 02-26-2018 21:50:00 EST by Stanford Manuel
== END 2018-02-26 09:57 | disposition other institution (70) ==
LOC: INPGRE 22:26 → EMEROOGRE 22:26 → INPGRE 02-26 09:57
PROVIDERS: ADMIT Family Medicine; ATTEND Family Medicine

== ENCOUNTER 2018-02-26 09:59 | Inpatient (IN) ==
--- NOTE | 2018-02-26 10:43 | Internal Med History&Physical ---
Date of Encounter: 02/25/18 Time of Encounter: 10:43 Assessment and Plan (1) Physical deconditioning Current visit: Yes Status: Acute Patient has had physical deconditioning, weakness, hypoxia when walking only a few feet. She has been hospitalized twice in this past month and is deconditioned and unable to remain at home. She could not tolerate being home more than 12 hours before coming back to the emergency room. She will be admitted to this swing bed for evaluation for PT and OT and therapies to regain her ADLs with the plan to return to home after her endurance is improved.. (2) Acute and chronic respiratory failure with hypoxia Current visit: Yes Status: Acute Acute exacerbation of chronic COPD with hypoxia. She is now requiring 3 L per nasal cannula. She had acute dyspneic episode and hypoxia early this morning having walked just a few feet. She is deconditioned physically and will consult PT and OT, try to advance her ADLs and respiratory status to the point where she could not safely return home. (3) Diabetes mellitus Current visit: Yes Status: Chronic History of diabetes mellitus which has been under good control. Recent glycohemoglobin 5.4% Qualifiers: Diabetes mellitus type: type 2 Diabetes mellitus alf insulin use: without intermediate manager use Diabetes mellitus complication status: with hype rglycemia Qualified Code(s): E11.65 - Type 2 diabetes mellitus with hyper glycemia (4) Coronary artery disease Current visit: Yes Status: Chronic Chronic coronary artery disease, multiple catheterizations and stent placements. She has history of stable angina and uses nitroglycerin sublingually when necessary. She had a brief episode of chest pain this last night and negative workup for an acute TN. Her Imdur was recently increased to 90 mg twice a day. We will continue to follow clinically. Qualifiers: Coronary Disease-Associated Artery/Lesion type: [place]well artery [place] vs. transplanted heart: cantwell heart Associated angina: with stable angina Qualified Code(s): I25.118 - Atherosclerotic heart disease of [place] coronary artery with other forms of angina pectoris (5) Paroxysmal atrial fibrillation Current visit: Yes Status: Chronic History of paroxysmal atrial fibrillation and now has a pacemaker and an ticoagulated with Coumadin. (6) DVT prophylaxis Current visit: No Status: Resolved She is anticoagulated with Coumadin. PT/INR is therapeutic. We will not need further DVT prophylaxis Internal Medicine - H&P: HPI Chief complaint: I got short of breath and weak again Admitted From: Emergency Dept Plans for Post Hospital Care: Home History of present illness: Ms. De La Cruz is a 82 year old female with known history of CAD, oxygen dependent COPD, recent hospitalization at [facility] with pneumonia and discharged for 10 days prior to being readmitted at [facility] with recurrence of pneumonia and pleural effusion. She was discharged from that hospital yesterday and in the middle of the night, when she walked about 15 feet to the bathroom, she had an episode of severe dyspnea and drop in her oxygen to the low 80s and was brought to the emergency room via squad. Her workup in the ER was reported as negative for an acute TN, pneumonia, or other easily reversible etiology. She has weakness and hypoxia and dyspnea but did not clear with respiratory treatment. Having been recently admitted to the hospital and discharged she was admitted to a swing bed due to deconditioning, dyspnea and continued hypoxia. It was decided that she may benefit from physical and occupational therapy. PT and OT consults have been arranged. Evaluation for rehabilitation versus continued swing bed planned. Currently she is stable from a respiratory point of view but has not started therapy yet. For now we will continue her current medications and oxygen Past Med Surg Social Fam HX - Past Medical History Medical history: atrial fibrillation, cancer, CHF, COPD, coronary artery disease, diabetes, GERD, hyperlipidemia, hypertension, pulmonary embolus, other Additional medical history: MACULAR DEGENERATION Psychiatric history: no psych history - Past Surgical History Surgical History: angioplasty/stent, appendectomy, breast surgery, cataract, cholecystectomy, pacemaker/AICD Additional surgical history: Left mastectomy, Cardiac stents X 5, PACEMAKER, RT FOOT SURG, BASAL CELL SURG FROM FACE, Multiple heart caths - Social History Smoking Status: Former smoker Smokeless Tobacco Status: No Alcohol use: none Drug use: none - Family History Mother Living Status: Hx Family Cardiac Disorders: Yes Hx Family Endocrine Disorder: Yes Father Adopted: No Family Member Ethnicity: Non- Living Status: Hx Family Cardiac Disorders: No Hx Family Respiratory Disorders: Yes Hx Family Cancer: Yes Hx Family GI Disorders: No Hx Family Endocrine Disorder: No Hx Family Neuromuscular Disorders: No Hx Family Neurologic Disorders: No Hx Family HEENT Disorders: No Hx Family Autoimmune Disorders: No Sister Living Status: Still Living Hx Family Cancer: Yes (Breast cancer) Internal Medicine - H&P: Meds Albuterol Sulfate [Albuterol Inhaler] 2 puff IH Q4H PRN 10/05/14 [History] Alendronate Sodium 70 mg PO QWEEK 10/05/14 [History] Atorvastatin [Lipitor] 80 mg PO HS 10/05/14 [History] Calcium Carbonate/Vitamin D3 [Calcium 250+D Tablet] 1 each PO BID 10/05/14 [History] Clopidogrel [Plavix] 75 mg PO DAILY 10/05/14 [History] Ezetimibe [Zetia] 10 mg PO HS 10/05/14 [History] Formoterol Fumarate [Perforomist] 20 mcg IH BID 10/05/14 [History] Furosemide [Lasix] 20 mg PO DAILY 10/05/14 [History] GlipiZIDE [Glucotrol] 5 mg PO BIDWM 10/05/14 [History] Nitroglycerin 0.2 mg TD DAILY 10/05/14 [History] Sotalol HCl [Betapace] 120 mg PO BID 10/05/14 [History] Warfarin [Coumadin] 8 mg PO DAILY 12/31/14 [History] Cholecalciferol (D-3) [Vitamin D] 1,000 unit PO DAILY 03/05/16 [History] Diltiazem CD (24hr) [Cardizem CD] 120 mg PO BID 03/05/16 [History] Isosorbide MONOnitrate (24 HR) [Imdur] 90 mg PO BID 03/05/16 [History] Esomeprazole Magnesium [Nexium] 40 mg PO DAILY 04/08/16 [History] Fish Oil/Dha/Epa [Fish Oil 1,200 mg Fish Oil] 2 each PO DAILY 04/08/16 [History] Tiotropium [Spiriva] 18 mcg IH DAILY 07/01/17 [History] Aspirin [Lo-Dose Aspirin EC] 81 mg PO DAILY 11/25/17 [History] Cyanocobalamin/Folic AC/Vit B6 [Folbic Tablet] 1 each PO DAILY 11/25/17 [History] Budesonide Neb [Pulmicort Neb] 0.25 mg IH BIDR 02/04/18 [History] Nitroglycerin 0.1 mg TD DAILY 02/04/18 [History] Acetaminophen [Tylenol] 650 mg PO Q6HR PRN tablet 02/09/18 [Rx] Potassium Chloride 10 meq PO BIDWM #60 tab.er.prt 02/09/18 [Rx] Latanoprost [Xalatan] 1 drop OP HS 02/21/18 [History] predniSONE [PredniSONE] See Taper PO DAILY 7 Days #9 tablet 02/25/18 [Rx] Allergy/AdvReac Type Severity Reaction Status Date / Time bacitracin Allergy Blister Verified 02/25/18 22:28 [From Neosporin ([id number])] cetirizine Allergy Confusion Verified 02/25/18 22:28 ciprofloxacin Allergy Difficulty Verified 02/25/18 22:28 Breathing codeine Allergy Drowsy Verified 02/25/18 22:28 diazepam [From Valium] Allergy See Verified 02/25/18 22:28 Comments miconazole Allergy Blister Verified 02/25/18 22:28 [From Neosporin AF] Neomycin Allergy Blister Verified 02/25/18 22:28 Penicillins Allergy See Verified 02/25/18 22:28 Comments polymyxin B Allergy Blister Verified 02/25/18 22:28 promethazine [From Phenergan] Allergy See Verified 02/25/18 22:28 Comments ranolazine [From Ranexa] Allergy See Verified 01/28/18 17:06 Comments Sulfa (Sulfonamide Allergy Confusion Verified 07/01/17 05:53 Antibiotics) - Constitutional Constitutional: no anorexia, no fever(s), no falls - EENT Eyes: no loss of vision Ears: no ear discharge, no ear pain Nose, mouth and throat: no sinus pain, no sore throat - Breasts Additional comments: History of left breast cancer and mastectomy - Cardiovascular Cardiovascular ROS IM: chest pain (She had a minor episode of chest pain last night, did not require nitroglycerin though. She frequently has anginal chest pain and uses nitroglycerin. Her Imdur was recently increased to 90 mg twice a day.) - Respiratory Respiratory: cough (She has had mild cough and production of dark to blood- tinged sputum once.), dyspnea (As in history of present illness), dyspnea on exertion (Dyspneic on exertion walking less than 15 feet to the bathroom), wheezing - Gastrointestinal Gastrointestinal: diarrhea, no abdominal pain, no constipation, no hematemesis, no melena - Genitourinary Genitourinary: no urinary frequency, no urinary urgency - Musculoskeletal Musculoskeletal ROS IM: no muscle weakness - Integumentary Integumentary IM: no rash - Neurological Additional comments: She has had some generalized weakness when trying to walk but no localizing or lateralizing weakness or symptoms. - Psychiatric Psychiatric: no confusion, no depression - Constitutional General appearance: Present: A&O X 3, no acute distress - Eye Eye exam: Present: EOMI, normal appearance - ENT ENT exam: Present: mucous membranes moist, normal exam, TM's normal bilaterally - Neck Neck exam general surgery: Present: full ROM. Absent: tenderness, nuchal rigidity, thyromegaly - Respiratory Respiratory exam: Present: decreased breath sounds Additional comments: Markedly decreased breath sounds throughout. Occasional rhonchi sounds. No localization of crackles or rales. No respiratory distress. She is wearing ox ygen at 3 L. - Cardiovascular Cardiovascular exam: Present: RRR, +S1, +S2 - GI/Abdominal GI/Abdominal exam: Present: soft. Absent: distended, guarding, hepatomegaly, mass, splenomegaly, tenderness - Extremities Exam Extremities exam: Absent: calf tenderness, pedal edema, tenderness - Neurological Exam Neurological exam: Present: CN II-XII intact, no focal deficits - Psychiatric Psychiatric exam: Present: normal affect, normal mood Internal Med - H&P Results - Labs CBC & Chem 7: 02/27/18 04:31 02/27/18 04:31 Labs: Labs from [facility] from yesterday have been reviewed. Pro time therapeutic. - Diagnostic Studies Chest x-ray Additional comments: Report states patient has chronic scarring in lower lobes. Atelectatic changes. No acute infiltrate or masses CT scan - chest Additional comments: CT of chest shows chronic scarring in lower lobes. Chronic COPD changes No acute masses, infiltrate or congestive heart failure changes.
[2018-02-26] MEDS ORDERED: Acetaminophen 325 MG TABLET PO PRN (13:57)
[2018-02-26] MEDS ORDERED: NON-FORMULARY MEDICATION 1 EACH EACH (Alendronate Sodium [Alendronate Sodium] 70 MG) PO SCH (14:00)
[2018-02-26] MEDS: *HR* Warfarin 4 MG TABLET PO SCH (17:47)
[2018-02-26] MEDS: *HR* GlipiZIDE 5 MG TABLET PO SCH (17:47)
[2018-02-26] MEDS: Diltiazem CD (24hr) 120 MG CAPSULE PO SCH (19:49)
[2018-02-26] MEDS: Isosorbide MONOnitrate (24 HR) 30 MG TAB.ER.24H PO SCH (19:49)
[2018-02-26] MEDS: (Ezetimibe [Zetia] 10 MG) PO SCH (19:50)
[2018-02-26] MEDS: (Formoterol Fumarate [Perforomist] 20 MCG) IH SCH (19:50)
[2018-02-26] MEDS: Latanoprost 2.5 ML BOTTLE BOTH EYES SCH (19:51)
[2018-02-26] MEDS: Budesonide Neb 0.25 MG/2 ML IH SCH (21:33)
[2018-02-27 04:41] LABS: Basophils % 0.1 %; Eosinophils % 0.1 %; Hematocrit 28.7 % (35.3-44.9); Hemoglobin 8.2 g/dL (11.5-15.4); Immature Granulocytes % 0.7 % (0-4); Lymphocytes # 2.5 K/mcL (0.6-4.6); Lymphocytes % 23.4 %; Mean Corpuscular HGB Conc 28.6 g/dL (31.6-35.5); Mean Corpuscular Hemoglobin 21.5 pg (28.0-33.3); Mean Corpuscular Volume 75.1 fL (83.0-100.0); Mean Platelet Volume 9.5 fL (9.4-12.4); Monocytes % 9.1 %; Neutrophils # 7.2 K/mcL (1.6-8.9); Nucleated Red Blood Cells 0.4 /100 WBC (0); Platelet Count 375 K/mcL (140-400); Red Blood Count 3.82 M/mcL (3.82-4.97); Segmented Neutrophils % 66.6 %
[2018-02-27 04:47] LABS: INR 2.9; Prothrombin Time 32.9 Seconds (9.4-12.1)
[2018-02-27 04:50] LABS: Hypochromasia Present (Not Present); Platelet Estimate Normal (Normal)
[2018-02-27 04:51] LABS: Anisocytosis 1+ (Not Present)
[2018-02-27 04:59] LABS: BUN/Creatinine Ratio 46 (6-26); Blood Urea Nitrogen 25 mg/dL (8-23); Calcium 8.7 mg/dL (8.6-10.3); Carbon Dioxide 35 mEq/L (23-29); Chloride 104 mEq/L (98-107); Glucose 112 mg/dL (70-105); Osmolality,Calculated 303 (280-300); Potassium 3.9 mEq/L (3.5-5.1); Sodium 144 mEq/L (136-145); eGFR For Non-African Americans > 60 (> 60)
[2018-02-27] MEDS: Nitroglycerin 0.1 MG PATCH.TD24 TD SCH (05:58)
[2018-02-27] MEDS: Nitroglycerin 0.2 MG PATCH.TD24 TD SCH (05:58)
--- NOTE | 2018-02-27 07:13 | Internal Med Progress Note ---
Date of Encounter: 02/27/18 Time of Encounter: 07:10 - Assessment and plan (1) Physical deconditioning Current Visit: Yes Status: Acute Assessment and plan: She is doing better than expected. We will continue with PT and OT. Re spiratory sanz she is improved in functionality. (2) Acute and chronic respiratory failure with hypoxia Current Visit: Yes Status: Acute Assessment and plan: Maintaining oxygen saturations adequately with decreased oxygen from 3 L to 2 L. Lung fernández are stable. She feels better respiratory-sanz. Continue same treatments. (3) Diabetes mellitus Current Visit: Yes Status: Chronic Assessment and plan: Elevated blood sugar in the 240s range, likely from her steroids. Will follow. Overall her glycohemoglobin has been under good control. 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 She is occasional "chest pains" which is typical for her stable angina. Qualifiers: Coronary Disease-Associated Artery/Lesion type: [place]well artery [place] vs. transplanted heart: cantwell heart Associated angina: with stable angina Qualified Code(s): I25.118 - Atherosclerotic heart disease of [place]well coronary artery with other forms of angina pectoris (5) Paroxysmal atrial fibrillation Current Visit: Yes Status: Chronic Assessment and plan: Remains anticoagulated with Coumadin. Pro time is pending. (6) Anemia Current Visit: No Status: Chronic Assessment and plan: Her hemoglobin is 8.2 g. This is stable for her. This is chronic. No obvious bleeding source. Qualifiers: Anemia type: unspecified type Qualified Code(s): D64.9 - Anemia, unspecified (7) DVT prophylaxis Current Visit: No Status: Resolved - Subjective Interval history: Patient feels that she is improving. "I think I impressed the therapists yesterday". Her saturations are in the 90s despite decreasing her oxygen per nasal cannula down from 3 L to 2 L. She denies any significant dyspneic episodes. She had a "minor chest pain" last evening, nothing with exertion. Did not require nitroglycerin. This is "normal" for her. Her bowels and bladder are working normally for her. She denies any edema or pain in her lower legs. - Constitutional Vitals: Temp Pulse Resp BP Pulse Ox 97.8 F 77 14 124/71 97 02/27/18 04:13 02/27/18 04:13 02/27/18 04:13 02/27/18 04:13 02/27/18 04:13 General appearance: Present: A&O X 3, no acute distress - Respiratory Additional comments: Markedly diminished breath sounds throughout, wheezes heard in the right anterior lung field that cleared with cough. No localized crackles/rales, rhonchi. No respiratory distress. Wearing oxygen per nasal cannula 2 L. - Cardiovascular Cardiovascular exam: Present: distant heart sounds, RRR, +S1, +S2 - GI/Abdominal GI/Abdominal exam: Absent: tenderness - Extremities Exam Extremities exam: Absent: calf tenderness, pedal edema, tenderness Internal Medicine: Result - Labs CBC & Chem 7: 02/27/18 04:31 02/27/18 04:31 Labs: Short CBC 02/27/18 Range/Units 04:31 WBC 10.9 (4.3-11.1) K/mcL Hgb 8.2 L (11.5-15.4) g/dL Hct 28.7 L (35.3-44.9) % Plt Count 375 (140-400) K/mcL Neutrophils # 7.2 (1.6-8.9) K/mcL BMP 02/27/18 04:31 Sodium 144 Potassium 3.9 Chloride 104 Carbon Dioxide 35 H BUN 25 H Creatinine 0.54 L Glucose 112 H Calcium 8.7 Labs have been reviewed. Hemoglobin is 8.2 which is chronic anemia for her. Pro time is pending. - ABG Interpretation ABG results: PT/INR, D-dimer PT 32.9 Seconds (9.4-12.1) H 02/27/18 04:31 Consult Discharge Plan - Plan Referrals: Ashok Tadeo MD [Primary Care Provider] -
[2018-02-27] MEDS: Cholecalciferol (D-3) 1,000 UNIT TABLET PO SCH (07:50)
[2018-02-27] MEDS: Diltiazem CD (24hr) 120 MG CAPSULE PO SCH ×2 (07:51→20:35)
[2018-02-27] MEDS: Aspirin Enteric Coated 81 MG Tablet PO SCH (07:51)
[2018-02-27] MEDS: *HR* GlipiZIDE 5 MG TABLET PO SCH ×2 (07:51→17:54)
[2018-02-27] MEDS: predniSONE 20 MG TABLET PO SCH (07:51)
[2018-02-27] MEDS: Isosorbide MONOnitrate (24 HR) 30 MG TAB.ER.24H PO SCH ×2 (07:51→20:35)
[2018-02-27] MEDS: Furosemide 20 MG TABLET PO SCH (07:51)
[2018-02-27] MEDS: (Fish Oil/Dha/Epa [Fish Oil 1,200 Mg Fish Oil] PO SCH (07:52)
[2018-02-27] MEDS: (Formoterol Fumarate [Perforomist] 20 MCG) IH SCH ×2 (07:52→20:30)
[2018-02-27] MEDS: CYANOCOBALAMIN PO SCH (07:52)
[2018-02-27] MEDS: VIT B6 PO SCH (07:52)
[2018-02-27] MEDS: FOLIC AC PO SCH (07:52)
[2018-02-27] MEDS: Budesonide Neb 0.25 MG/2 ML IH SCH ×2 (11:13→21:58)
[2018-02-27] MEDS: Tiotropium 18 MCG inhalation IH SCH (11:23)
[2018-02-27] MEDS: *HR* Warfarin 4 MG TABLET PO SCH (17:54)
[2018-02-27] MEDS: (Ezetimibe [Zetia] 10 MG) PO SCH (20:30)
[2018-02-27] MEDS: Latanoprost 2.5 ML BOTTLE BOTH EYES SCH (20:40)
[2018-02-28 05:39] LABS: INR 3.2; Prothrombin Time 36.4 Seconds (9.4-12.1)
[2018-02-28] MEDS: Nitroglycerin 0.2 MG PATCH.TD24 TD SCH (05:42)
[2018-02-28] MEDS: Nitroglycerin 0.1 MG PATCH.TD24 TD SCH (05:42)
[2018-02-28] MEDS: CYANOCOBALAMIN PO SCH (07:53)
[2018-02-28] MEDS: VIT B6 PO SCH (07:53)
[2018-02-28] MEDS: FOLIC AC PO SCH (07:53)
[2018-02-28] MEDS: (Formoterol Fumarate [Perforomist] 20 MCG) IH SCH ×2 (07:53→21:11)
[2018-02-28] MEDS: (Fish Oil/Dha/Epa [Fish Oil 1,200 Mg Fish Oil] PO SCH (07:53)
[2018-02-28] MEDS: Aspirin Enteric Coated 81 MG Tablet PO SCH (07:56)
[2018-02-28] MEDS: Cholecalciferol (D-3) 1,000 UNIT TABLET PO SCH (07:56)
[2018-02-28] MEDS: *HR* GlipiZIDE 5 MG TABLET PO SCH ×2 (07:56→16:52)
[2018-02-28] MEDS: Isosorbide MONOnitrate (24 HR) 30 MG TAB.ER.24H PO SCH ×2 (07:56→21:10)
[2018-02-28] MEDS: Diltiazem CD (24hr) 120 MG CAPSULE PO SCH ×2 (07:56→21:09)
[2018-02-28] MEDS: predniSONE 20 MG TABLET PO SCH (07:56)
[2018-02-28] MEDS: Furosemide 20 MG TABLET PO SCH (07:56)
[2018-02-28] MEDS: Tiotropium 18 MCG inhalation IH SCH (08:00)
[2018-02-28] MEDS: Budesonide Neb 0.25 MG/2 ML IH SCH ×2 (12:21→21:10)
--- NOTE | 2018-02-28 15:22 | Internal Med Progress Note ---
Date of Encounter: 02/28/18 Time of Encounter: 15:17 - Assessment and plan (1) Physical deconditioning Current Visit: Yes Status: Acute Assessment and plan: She is markedly improved. She should be ready to go home in the next 24 hours. Anticipate discharge tomorrow. (2) Acute and chronic respiratory failure with hypoxia Current Visit: Yes Status: Acute Assessment and plan: She is doing well from a respiratory point of view. Her oxygen requirement is back down to her at home baseline of 2 L. (3) Diabetes mellitus Current Visit: Yes Status: Chronic Assessment and plan: Sugars are under adequate control. 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 Qualifiers: Coronary Disease-Associated Artery/Lesion type: [place] artery [place] vs. transplanted heart: [place] heart Associated angina: with stable angina Qualified Code(s): I25.118 - Atherosclerotic heart disease of [place] coronary artery with other forms of angina pectoris (5) Paroxysmal atrial fibrillation Current Visit: Yes Status: Chronic (6) Anemia Current Visit: No Status: Chronic Assessment and plan: We will recheck her hemoglobin tomorrow. Qualifiers: Anemia type: unspecified type Qualified Code(s): D64.9 - Anemia, unspecifi ed (7) DVT prophylaxis Current Visit: No Status: Resolved - Subjective Interval history: Patient feels that she is doing quite well. Today she is able to stand at a table I play [employer] without getting dyspneic or having to sit down. 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 Her stamina and endurance has improved dramatically. She was able to take a shower as well. Through the she states she did not get dyspneic or have any chest pain. She has not required any nitroglycerin sublingually. She has a bit of sputum production but she states it is moving up into her throat and improving. No GI or symptoms. No exertional angina. - Constitutional Vitals: Temp Pulse Resp BP Pulse Ox 97.8 F 70 18 135/74 99 02/28/18 07:39 02/28/18 07:39 02/28/18 09:00 02/28/18 07:39 02/28/18 07:39 General appearance: Present: A&O X 3, no acute distress - Respiratory Additional comments: Very diminished breath sounds but clear. No respiratory distress. She is wearing her oxygen at 2 L. - Cardiovascular Cardiovascular exam: Present: RRR, +S1, +S2, systolic murmur (1/6 systolic mur mur.) - Extremities Exam Extremities exam: Absent: pedal edema Internal Medicine: Result - Labs CBC & Chem 7: 02/27/18 04:31 02/27/18 04:31 Labs: Her pro time is up to 3.2. - ABG Interpretation ABG results: PT/INR, D-dimer PT 36.4 Seconds (9.4-12.1) H 02/28/18 05:10 Consult Discharge Plan - Plan Referrals: Ashok Tadeo MD [Primary Care Provider] -
[2018-02-28] MEDS: Latanoprost 2.5 ML BOTTLE BOTH EYES SCH (21:11)
[2018-02-28] MEDS: (Ezetimibe [Zetia] 10 MG) PO SCH (21:11)
[2018-03-01 04:53] LABS: Basophils % 0.1 %; Eosinophils # 0.1 K/mcL (0.0-0.6); Eosinophils % 1.3 %; Hematocrit 28.2 % (35.3-44.9); Hemoglobin 7.9 g/dL (11.5-15.4); Immature Granulocytes % 1.3 % (0-4); Lymphocytes # 2.2 K/mcL (0.6-4.6); Lymphocytes % 29.8 %; Mean Corpuscular Hemoglobin 21.1 pg (28.0-33.3); Mean Corpuscular Volume 75.4 fL (83.0-100.0); Mean Platelet Volume 9.7 fL (9.4-12.4); Monocytes # 0.8 K/mcL (0.0-1.3); Monocytes % 10.1 %; Neutrophils # 4.3 K/mcL (1.6-8.9); Platelet Count 328 K/mcL (140-400); Red Blood Count 3.74 M/mcL (3.82-4.97); Red Cell Distribution Width 17.9 % (11.5-14.5); Segmented Neutrophils % 57.4 %
[2018-03-01 04:58] LABS: INR 2.6; Prothrombin Time 29.8 Seconds (9.4-12.1)
[2018-03-01 05:05] LABS: Hypochromasia Present (Not Present)
[2018-03-01 05:06] LABS: Anisocytosis 1+ (Not Present); Platelet Estimate Normal (Normal)
[2018-03-01 05:07] LABS: Microcytosis Present (Not Present)
[2018-03-01 05:09] LABS: BUN/Creatinine Ratio 32 (6-26); Blood Urea Nitrogen 19 mg/dL (8-23); Calcium 8.6 mg/dL (8.6-10.3); Carbon Dioxide 36 mEq/L (23-29); Chloride 100 mEq/L (98-107); Glucose 102 mg/dL (70-105); Osmolality,Calculated 294 (280-300); Potassium 3.6 mEq/L (3.5-5.1); Sodium 141 mEq/L (136-145); eGFR For Non-African Americans > 60 (> 60)
[2018-03-01 07:17] VITALS: BP 153/66
[2018-03-01] MEDS: Nitroglycerin 0.2 MG PATCH.TD24 TD SCH (07:56)
[2018-03-01] MEDS: Aspirin Enteric Coated 81 MG Tablet PO SCH (07:57)
[2018-03-01] MEDS: Diltiazem CD (24hr) 120 MG CAPSULE PO SCH (07:57)
[2018-03-01] MEDS: Nitroglycerin 0.1 MG PATCH.TD24 TD SCH (07:57)
[2018-03-01] MEDS: Furosemide 20 MG TABLET PO SCH (07:57)
[2018-03-01] MEDS: predniSONE 20 MG TABLET PO SCH (07:58)
[2018-03-01] MEDS: CYANOCOBALAMIN PO SCH (07:58)
[2018-03-01] MEDS: FOLIC AC PO SCH (07:58)
[2018-03-01] MEDS: VIT B6 PO SCH (07:58)
[2018-03-01] MEDS: Isosorbide MONOnitrate (24 HR) 30 MG TAB.ER.24H PO SCH (07:58)
[2018-03-01] MEDS: *HR* GlipiZIDE 5 MG TABLET PO SCH (07:58)
[2018-03-01] MEDS: Cholecalciferol (D-3) 1,000 UNIT TABLET PO SCH (07:58)
[2018-03-01] MEDS: (Formoterol Fumarate [Perforomist] 20 MCG) IH SCH (07:59)
[2018-03-01] MEDS: (Fish Oil/Dha/Epa [Fish Oil 1,200 Mg Fish Oil] PO SCH (07:59)
[2018-03-01] MEDS: Tiotropium 18 MCG inhalation IH SCH (10:11)
[2018-03-01] MEDS: Budesonide Neb 0.25 MG/2 ML IH SCH (10:11)
--- NOTE | 2018-03-01 13:39 | Discharge Summary ---
- NOTES TO OUTPATIENT PROVIDER Notes to Outpatient Provider: #1. Patient was admitted to a swing bed for deconditioning after her discharge from [facility]. We will postpone the follow-up in my office until next week. She plans to postpone Dr. Orellana's appointment for tomorrow because of the weather and her recent hospitalization until next week. Date of Encounter: 03/01/18 Time of Encounter: 13:34 - Discharge Diagnosis (1) Physical deconditioning Priority: Primary Status: Acute Comments: Patient was hospitalized at [facility] for several days for pneumonia, was discharged to home for 10 days and then was admitted to [facility] for pneumonia and exacerbation of COPD and chest pain. She was discharged from that facility and within about 12 hours or so, while at home, she developed severe dyspnea, hypoxia and chest pain and was evaluated in the emergency room. It was felt that she was deconditioned, just not ready to be at home because of weakness and dyspnea, and she was admitted to a swing bed. She was evaluated by PT and OT. She underwent therapies to the point where she is now functioning at a higher baseline level, able to maintain ADLs, shower independently, be able to be doing cooking, etc. Her oxygen needs are now back down to her 2 L per nasal cannula as she does chronically. It is felt that she is back to a safe baseline of independence to be at home, and she does not have anxiety regarding dyspnea and maintaining ADLs. She will be discharged today. She will follow-up in the office with me next week. She has follow-up appointment with Dr. Orellana for tomorrow, but she is going to postpone until next week until she is home for about a week and the weather is better. (2) Acute and chronic respiratory failure with hypoxia Priority: Secondary Status: Acute Comments: Patient has done well with respiratory treatments, continued oral prednisone taper, supplemental oxygen. She was requiring 3-5 L per nasal cannula, now she is down to 2 L per nasal cannula which is her baseline. She has had no further exacerbations of dyspnea, chest pains, etc. Maintaining her ADLs well now and will be discharged to home on continued taper of prednisone. She already has her oxygen, nebulizers and MDIs at home. We did not make any further changes in that regimen per the size worker. She has follow-up with Dr. Orellana planned. (3) Diabetes mellitus Priority: Secondary Status: Chronic Comments: Her sugars have been a bit elevated because of her steroid use. She did not need extra coverage. Her baseline glycohemoglobin is good at 5.4% and medications were not changed. Qualifiers: Diabetes mellitus type: type 2 Diabetes mellitus terminal makeup operator insulin use: without correction use Diabetes mellitus complication status: with hyperglycemia Qualified Code(s): E11.65 - Type 2 diabetes mellitus with hyperglycemia (4) Coronary artery disease Priority: Secondary Status: Chronic Comments: After her ER workup, she had no further chest pain, angina or need for sublingual nitroglycerin. Qualifiers: Coronary Disease-Associated Artery/Lesion type: [place] artery [place] vs. transplanted heart: [place] heart Associated angina: with stable angina Qualified Code(s): I25.118 - Atherosclerotic heart disease of [place] coronary artery with other forms of angina pectoris (5) Paroxysmal atrial fibrillation Priority: Secondary Status: Chronic Comments: Chronic history of paroxysmal atrial fibrillation. 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 She maintained regular rate and rhythm. She is anticoagulated with Coumadin. Her discharge Coumadin dose is 7.5 mg and INR is 2.3. Hospital course: Ms. De La Cruz is a 82 year old female with known severe COPD and oxygen dependent, coronary artery disease and multiple heart catheterizations, and recent hospital stay at [facility] for pneumonia was admitted to our swing bed having failed ability to maintain ADLs at home. Please see the diagnoses above. Discharge discussed with: patient, other () - Time Spent with Patient Total time spent providing and/or coordinating discharge services: - Discharge Medications Home Medications: Albuterol Sulfate [Albuterol Inhaler] 2 puff IH Q4H PRN 10/05/14 [History] Alendronate Sodium 70 mg PO QWEEK 10/05/14 [History] Atorvastatin [Lipitor] 80 mg PO HS 10/05/14 [History] Calcium Carbonate/Vitamin D3 [Calcium 250+D Tablet] 1 each PO BID 10/05/14 [History] Clopidogrel [Plavix] 75 mg PO DAILY 10/05/14 [History] Ezetimibe [Zetia] 10 mg PO HS 10/05/14 [History] Formoterol Fumarate [Perforomist] 20 mcg IH BID 10/05/14 [History] Furosemide [Lasix] 20 mg PO DAILY 10/05/14 [History] GlipiZIDE [Glucotrol] 5 mg PO BIDWM 10/05/14 [History] Nitroglycerin 0.2 mg TD DAILY 10/05/14 [History] Sotalol HCl [Betapace] 120 mg PO BID 10/05/14 [History] Cholecalciferol (D-3) [Vitamin D] 1,000 unit PO DAILY 03/05/16 [History] Diltiazem CD (24hr) [Cardizem CD] 120 mg PO BID 03/05/16 [History] Isosorbide MONOnitrate (24 HR) [Imdur] 90 mg PO BID 03/05/16 [History] Esomeprazole Magnesium [Nexium] 40 mg PO DAILY 04/08/16 [History] Fish Oil/Dha/Epa [Fish Oil 1,200 mg Fish Oil] 2 each PO DAILY 04/08/16 [History] Tiotropium [Spiriva] 18 mcg IH DAILY 07/01/17 [History] Aspirin [Lo-Dose Aspirin EC] 81 mg PO DAILY 11/25/17 [History] Cyanocobalamin/Folic AC/Vit B6 [Folbic Tablet] 1 each PO DAILY 11/25/17 [History] Budesonide Neb [Pulmicort Neb] 0.25 mg IH BIDR 02/04/18 [History] Nitroglycerin 0.1 mg TD DAILY 02/04/18 [History] Acetaminophen [Tylenol] 650 mg PO Q6HR PRN tablet 02/09/18 [Rx] Potassium Chloride 10 meq PO BIDWM #60 tab.er.prt 02/09/18 [Rx] Latanoprost [Xalatan] 1 drop OP HS 02/21/18 [History] predniSONE [PredniSONE] See Taper PO DAILY 7 Days #9 tablet 02/25/18 [Rx] Warfarin [Coumadin] 7.5 mg PO DAILY #0 03/01/18 [Rx] Allergies/Adverse Reactions: Allergy/AdvReac Type Severity Reaction Status Date / Time bacitracin Allergy Blister Verified 02/25/18 22:28 [From Neosporin ([id number])] cetirizine Allergy Confusion Verified 02/25/18 22:28 ciprofloxacin Allergy Difficulty Verified 02/25/18 22:28 Breathing codeine Allergy Drowsy Verified 02/25/18 22:28 diazepam [From Valium] Allergy See Verified 02/25/18 22:28 Comments miconazole Allergy Blister Verified 02/25/18 22:28 [From Neosporin AF] Neomycin Allergy Blister Verified 02/25/18 22:28 Penicillins Allergy See Verified 02/25/18 22:28 Comments polymyxin B Allergy Blister Verified 02/25/18 22:28 promethazine [From Phenergan] Allergy See Verified 02/25/18 22:28 Comments ranolazine [From Ranexa] Allergy See Verified 01/28/18 17:06 Comments Sulfa (Sulfonamide Allergy Confusion Verified 07/01/17 05:53 Antibiotics) Date of admission: 02/26/18 10:01 Primary care physician: Ashok Tadeo MD Consults: 02/26/18 13:00 Consult to Occupational Therapy [CONS] Routine Comment: Need for follow up Reason for Consult: need for follow up Does patient have active BEDREST order?: No Is patient medically & hemodynamically stable?: Yes Patient assessed for mobility or mobilized this visit?: No Consult to Physical Therapy [CONS] Routine Comment: need for follow up care Reason for Consult: need for follow up care Does patient have active BEDREST order?: No Is patient medically & hemodynamically stable?: Yes Consult to Recreational Therapy [CONS] Routine Comment: Consult to Excavation Laborer [CONS] Routine Reason for SW Consult: Need for follow up care Discharging clinician: Ashok Tadeo Anticipated date of discharge: 03/01/18 - Constitutional Vitals: Temp Pulse Resp BP Pulse Ox 98.5 F 72 16 153/66 99 03/01/18 07:16 03/01/18 07:16 03/01/18 07:16 03/01/18 07:16 03/01/18 07:16 General appearance: Present: A&O X 3, no acute distress - Respiratory Respiratory exam: Present: decreased breath sounds (Decreased breath sounds throughout, but clear. She has a mild loose cough from her upper airways.) - Cardiovascular Cardiovascular exam: Present: RRR, +S1, +S2, systolic murmur (1 to 2/6 systolic murmur) - Extremities Exam Extremities exam: Absent: calf tenderness, pedal edema, tenderness - Patient Status Disposition: Home Health Service Condition: Good Functional capacity at discharge: uses cane/walker Overall status at discharge: patient is progressing back to baseline - Discharge Instructions Follow Up With: Ashok Tadeo MD [Primary Care Provider] - 03/09/18 11:30 am - Diet and Activity Activity: increase activity as tolerated, wear oxygen at all times Diet: diabetic diet, low fat, low cholesterol, low salt diet
--- NOTE | 2018-03-01 14:16 | Physician Discharge Referral ---
Home Health/Hosp Referral Info Transfer to: Home Health Attending Provider: Provider in Charge Post Discharge: PCP () - Diagnosis (1) Physical deconditioning Priority: Primary Status: Acute (2) Acute and chronic respiratory failure with hypoxia Priority: Secondary Status: Acute (3) Diabetes mellitus Priority: Secondary Status: Chronic (4) Coronary artery disease Priority: Secondary Status: Chronic (5) Paroxysmal atrial fibrillation Priority: Secondary Status: Chronic - Respiratory Orders Oxygen / L per min (2L/NC) Smoking Cessation: Smoking cessation has been advised. For more information, call the [place] Tobacco Quit Line at 8-947-KGBT-NOW. - Diet/Nutrition Diet/Nutrition Orders: No Added Salt (BERNICE), Cardiac, No Concentrated Sweets - Activity Activity Orders: Ambulate, Walker - Services Needed Following services are medically necessary services: Nursing - Transfer Medications Home Medications: Albuterol Sulfate [Albuterol Inhaler] 2 puff IH Q4H PRN 10/05/14 [History] Alendronate Sodium 70 mg PO QWEEK 10/05/14 [History] Atorvastatin [Lipitor] 80 mg PO HS 10/05/14 [History] Calcium Carbonate/Vitamin D3 [Calcium 250+D Tablet] 1 each PO BID 10/05/14 [History] Clopidogrel [Plavix] 75 mg PO DAILY 10/05/14 [History] Ezetimibe [Zetia] 10 mg PO HS 10/05/14 [History] Formoterol Fumarate [Perforomist] 20 mcg IH BID 10/05/14 [History] Furosemide [Lasix] 20 mg PO DAILY 10/05/14 [History] GlipiZIDE [Glucotrol] 5 mg PO BIDWM 10/05/14 [History] Nitroglycerin 0.2 mg TD DAILY 10/05/14 [History] Sotalol HCl [Betapace] 120 mg PO BID 10/05/14 [History] Cholecalciferol (D-3) [Vitamin D] 1,000 unit PO DAILY 03/05/16 [History] Diltiazem CD (24hr) [Cardizem CD] 120 mg PO BID 03/05/16 [History] Isosorbide MONOnitrate (24 HR) [Imdur] 90 mg PO BID 03/05/16 [History] Esomeprazole Magnesium [Nexium] 40 mg PO DAILY 04/08/16 [History] Fish Oil/Dha/Epa [Fish Oil 1,200 mg Fish Oil] 2 each PO DAILY 04/08/16 [History] Tiotropium [Spiriva] 18 mcg IH DAILY 07/01/17 [History] Aspirin [Lo-Dose Aspirin EC] 81 mg PO DAILY 11/25/17 [History] Cyanocobalamin/Folic AC/Vit B6 [Folbic Tablet] 1 each PO DAILY 11/25/17 [History] Budesonide Neb [Pulmicort Neb] 0.25 mg IH BIDR 02/04/18 [History] Nitroglycerin 0.1 mg TD DAILY 02/04/18 [History] Acetaminophen [Tylenol] 650 mg PO Q6HR PRN tablet 02/09/18 [Rx] Potassium Chloride 10 meq PO BIDWM #60 tab.er.prt 02/09/18 [Rx] Latanoprost [Xalatan] 1 drop OP HS 02/21/18 [History] predniSONE [PredniSONE] See Taper PO DAILY 7 Days #9 tablet 02/25/18 [Rx] Warfarin [Coumadin] 7.5 mg PO DAILY #0 03/01/18 [Rx] Allergies/Adverse Reactions: Allergy/AdvReac Type Severity Reaction Status Date / Time bacitracin Allergy Blister Verified 02/25/18 22:28 [From Neosporin ([id number])] cetirizine Allergy Confusion Verified 02/25/18 22:28 ciprofloxacin Allergy Difficulty Verified 02/25/18 22:28 Breathing codeine Allergy Drowsy Verified 02/25/18 22:28 diazepam [From Valium] Allergy See Verified 02/25/18 22:28 Comments miconazole Allergy Blister Verified 02/25/18 22:28 [From Neosporin AF] Neomycin Allergy Blister Verified 02/25/18 22:28 Penicillins Allergy See Verified 02/25/18 22:28 Comments polymyxin B Allergy Blister Verified 02/25/18 22:28 promethazine [From Phenergan] Allergy See Verified 02/25/18 22:28 Comments ranolazine [From Ranexa] Allergy See Verified 01/28/18 17:06 Comments Sulfa (Sulfonamide Allergy Confusion Verified 07/01/17 05:53 Antibiotics) Certification: Further, I certify that my clinical findings support that this patient is homebound (i.e. absences from home require considerable and taxing effort and are for medical reasons or oriental orthodox services or infrequently or short duration when for other reasons) because: Homebound Reason: Patient requires assistance of a person or device to safely leave home, Leaving home requires considerable and taxing effort due to condition Attestation: My signature below is to certify that this patient is under my care and that I, or nurse practitioner, or a physician's resident programs assistant working with me, has a [id number] encounter with this patient.
== END 2018-03-01 14:50 | disposition home health service (06) | DRG 189 ==
LOC: INPGRE 10:01
PROVIDERS: ADMIT Family Medicine; ATTEND Family Medicine